=== PATIENT | male | born 1935 | race Caucasian/White ===

== ENCOUNTER 2020-05-17 07:36 | Outpatient (CLI) | payer MEDICARE, SELFPAY ==
--- NOTE | ~2020-05-17 | CT_ITS ---
EXAMINATION: CT brain wo/w con DATE: 05/17/2020 08:24 INDICATION: Headache TECHNIQUE: Computed tomography (CT) of the head was performed without intravenous contrast. The mA wa s adjusted according to patient size. Iterative reconstruction technique was employed. Exam dose: 12 10.67 mGy-cm total exam DLP. COMPARISON: 09/26/2018 CT head FINDINGS: Bilateral vertebral and carotid siphon and supraclinoid internal carotid artery calcificati ons. There is nonspecific diminished attenuation of the subcortical and periventricular cerebral white mat ter, likely due to chronic small vessel ischemic changes. There is a small chronic left frontal corti josh cerebrovascular infarct. There is moderate central and cortical cerebral and cerebellar atrophy. No intracranial mass lesion or hemorrhage or recent cerebrovascular accident is evident. There is no midline shift or mass effects. No orbital mass lesion. No fracture or bone destruction of the cranial vault. There is patchy opacification of the ethmoid air cells bilaterally. IMPRESSION: Cerebral atherosclerosis and chronic small vessel ischemic changes of the cerebral white matter Small chronic left frontal cerebrovascular accident Moderate central and cortical cerebral and cerebellar atrophy No acute intracranial finding Reviewed, dictated and finalized at [facility]. Reviewed, dictated and finalized at location [facility].
[2020-05-17 08:06] LABS: Estimated Glomerular Filt Rate > 60
== END 2020-05-17 07:37 | disposition home or self-care (01) ==
LOC: ANHIMG 07:43
PROVIDERS: PCP Internal Medicine; Visit Provider Internal Medicine
DX: R51 Headache (principal); I65.23 Occlusion and stenosis of bilateral carotid arteries; I67.2 Cerebral atherosclerosis; Z86.73 Personal history of transient ischemic attack (TIA), and cerebral infarction without residual deficits; G31.9 Degenerative disease of nervous system, unspecified
CPT/HCPCS: 36415; 70470; Q9967

== ENCOUNTER 2020-05-30 00:34 | Outpatient (CLI) | payer MEDICARE, SELFPAY ==
[2020-05-30 19:34] LABS: SARS-CoV-2 RNA PCR Negative
== END 2020-05-30 00:35 | disposition home or self-care (01) ==
LOC: ANHCOVIDDT 00:34
PROVIDERS: PCP Internal Medicine; Visit Provider Internal Medicine Gastroenterology
DX: Z01.812 Encounter for preprocedural laboratory examination (principal); Z11.59 Encounter for screening for other viral diseases
CPT/HCPCS: 87635; C9803; U0003

== ENCOUNTER 2020-06-01 02:18 | Day surgery (SDC) | payer MEDICARE, SELFPAY ==
[2020-05-20 14:35] VITALS: BMI 27.4
--- NOTE | 2020-05-30 14:37 | P.PNAN_ITS ---
Anes - Initial Pre Proc Eval Procedure: Operation Date: 06/01/20 09:30 Proposed Procedures p Screening Colonoscopy - Cayetano Milan MD Date/Time: 05/30/20 14:37 Surgeon: Cayetano Milan MD Pre Op Diagnosis: hx colon polyps Patient Data Age: 84 Gender: M Height: 1.73 m Weight: 82 kg Allergies Allergy/AdvReac Type Severity Reaction Status Date / Time No Known Allergies Allergy Verified 06/01/20 09:07 Home Medications Medication Instructions Recorded Confirmed Type amlodipine 5 mg DAILY 05/20/20 06/01/20 History aspirin 325 mg PO DAILY 05/20/20 06/01/20 History atorvastatin 80 mg DAILY 05/20/20 06/01/20 History atorvastatin 80 mg PO DAILY 05/20/20 06/01/20 History carvedilol 6.25 mg DAILY 05/20/20 06/01/20 History cholecalciferol (vitamin D3) 25 mcg PO DAILY 05/20/20 06/01/20 History [Vitamin D3] lisinopril 40 mg DAILY 05/20/20 06/01/20 History metformin 500 mg PO DAILY 05/20/20 06/01/20 History Patient hx anesthesia problems: none Family hx anesthesia problems: none [facility] Past Medical History Medical History (Updated 06/01/20 @ 09:31 by Marc Avtiia DO) CAD (coronary artery disease) patient told he has some blockage but not enough to have a stent or any other intervention Diabetes type 2, controlled GERD (gastroesophageal reflux disease) Hyperlipidemia Hypertension Anes - Eval Final PreProcedure Day of Procedure 05/30/20 14:37 Patient weight: overweight Heart: regular rate and rhythm Lungs: clear to auscultation and normal air movement Airway: Mallampati scale class II Neurological: alert and oriented Last oral intake: >/= 8 hours ASA classification: III Emergent: no Anesthetic plan: proceed Anesthesia type and monitoring: general GIVS and standard monitoring Informed Consent: The patient's anesthetic plan and its attendant risks and benefits were discussed with the patient/family/POA. Questions were solicited and answers provided to the satisfaction of the patient/family/POA.
[2020-06-01 09:10] VITALS: BP 113/56; PULSE 60; RESP 18; TEMP 36.6; O2SAT 96
[2020-06-01] MEDS: LACTATED RINGERS 1,000 ML 150 ML IV CONT (09:22)
[2020-06-01 09:27] LABS: Glucose Point of Care 126 (65-105)
--- NOTE | 2020-06-01 10:00 | P.CONGI_ITS ---
GI Consult Note Consult date/time: 06/01/20 10:00 HPI: Mark Patel is a 84 year old male Seen in evaluation at the request of Dr. Wilner braxton. Patient presents for follow-up colonoscopy. Patient had a colonoscopy 5 years ago that revealed a tubular adenomatous colon polyp. Saritha ent states that his current weight appetite bowel movements are normal. He denies abdominal pain. He has had no bleeding. Family history is noncontributory. he presents today for screening follow-up colonoscopy. Review of Systems Review of Systems: All systems reviewed & are unremarkable except as noted in HPI and below PMFSH Past Medical History Medical History CAD (coronary artery disease) patient told he has some blockage but not enough to have a stent or any other intervention Diabetes type 2, controlled GERD (gastroesophageal reflux disease) Hyperlipidemia Hypertension Meds Home Medications and Allergies Home Medications Medication Instructions Recorded Confirmed Type amlodipine 5 mg DAILY 05/20/20 06/01/20 History aspirin 325 mg PO DAILY 05/20/20 06/01/20 History atorvastatin 80 mg DAILY 05/20/20 06/01/20 History atorvastatin 80 mg PO DAILY 05/20/20 06/01/20 History carvedilol 6.25 mg DAILY 05/20/20 06/01/20 History cholecalciferol (vitamin D3) 25 mcg PO DAILY 05/20/20 06/01/20 History [Vitamin D3] lisinopril 40 mg DAILY 05/20/20 06/01/20 History metformin 500 mg PO DAILY 05/20/20 06/01/20 History Allergies Allergy/AdvReac Type Severity Reaction Status Date / Time No Known Allergies Allergy Verified 06/01/20 09:07 Vital Signs Vital Signs - 24 hr 06/01/20 09:10 Temperature 97.8 F Pulse Rate 60 Respiratory Rate 18 Blood Pressure 113/56 L Pulse Oximetry 96 Exam Narrative: Exam Narrative: Physical exam reveals patient to be alert. Vital signs stable. HEENT exam unremarkable. Lungs are clear to auscultation and percussion. Heart is without murmur or extra sounds. Abdominal exam bowel sounds are present soft nontender with no organomegaly. Digital external rectal exam normal.
[2020-06-01 10:36] VITALS: BP 81/45; PULSE 59; RESP 18; O2SAT 94
[2020-06-01 10:46] VITALS: BP 88/46; PULSE 59; RESP 19; O2SAT 95
[2020-06-01 10:47] LABS: Glucose Point of Care 114 (65-105)
[2020-06-01 10:56] VITALS: BP 115/59; PULSE 60; RESP 18; O2SAT 96
== END 2020-06-01 11:19 | disposition home or self-care (01) ==
PROVIDERS: PCP Internal Medicine; Visit Provider Internal Medicine Gastroenterology
PROC: 0DJD8ZZ Inspection of Lower Intestinal Tract, Via Natural or Artificial Opening Endoscopic (ICD-10-PCS; CPT 45378; principal; 2020-06-01 09:30)
DX: Z12.11 Encounter for screening for malignant neoplasm of colon (principal); D12.5 Benign neoplasm of sigmoid colon; K64.8 Other hemorrhoids; I25.10 Atherosclerotic heart disease of native coronary artery without angina pectoris; E11.9 Type 2 diabetes mellitus without complications; K21.9 Gastro-esophageal reflux disease without esophagitis; I10 Essential (primary) hypertension; E78.5 Hyperlipidemia, unspecified; Z79.84 Long term (current) use of oral hypoglycemic drugs; Z79.82 Long term (current) use of aspirin; Z79.899 Other long term (current) drug therapy
CPT/HCPCS: 45385; 88305; J2704; J7120

== ENCOUNTER 2020-06-03 10:56 | Outpatient (CLI) | payer MEDICARE, SELFPAY ==
--- NOTE | ~2020-06-03 | US_ITS ---
EXAMINATION: US carotid duplex BI DATE: 06/03/2020 11:51 INDICATION: Carotid stenosis TECHNIQUE: Grayscale, color Doppler, and pulsed Doppler images of the cervical carotid arteries were obtained. The degree of vessel stenosis is placed in one of the following categories: normal, <50%, 5 0-69%, >=70% but less than near-occlusion, near-occlusion, or total occlusion. Note that percent sten osis relative to normal distal artery lumen diameter is indirectly measured from velocity measurement s as described by Alex, et al. Radiology 2003; 229:340-346. COMPARISON: None. FINDINGS: RIGHT: The right common carotid artery (CCA) peak systolic velocity (PSV) is 68 cm/s. Postoperative change o f prior right carotid endarterectomy. The right internal carotid artery (ICA) PSV is 151 cm/s. The ri ght ICA end-diastolic velocity (EDV) is 23 cm/s. The right ICA/CCA PSV ratio is 2.2. Grayscale and co yulissa Doppler images including secondary color Doppler criteria demonstrate <50% diameter reduction fro m small amount of plaque in the ICA. The external carotid artery (ECA) PSV is 140 cm/s. There is ante grade flow in the right vertebral artery. LEFT: The left CCA PSV is 90 cm/s. Postoperative change of prior left carotid endarterectomy. The left ICA PSV is 111 cm/s. The left ICA EDV is 24 cm/s. The left ICA/CCA PSV ratio is 1.2. Grayscale and color Doppler images yield an estimate of <50% diameter reduction from plaque in the ICA. The ECA PSV is 16 0 cm/s. There is antegrade flow in the left vertebral artery. IMPRESSION: 1. Right carotid endarterectomy with <50% stenosis in the right internal carotid artery. 2. Left carotid endarterectomy with <50% stenosis in the left internal carotid artery. Reviewed, dictated and finalized at location [facility]. IMPRESSION: 1. Right carotid endarterectomy with <50% stenosis in the right internal caroti d artery. 2. Left carotid endarterectomy with <50% stenosis in the left internal carotid artery.
== END 2020-06-03 10:57 | disposition home or self-care (01) ==
PROVIDERS: PCP Internal Medicine; Visit Provider Nurse Practitioner
DX: I65.23 Occlusion and stenosis of bilateral carotid arteries (principal)
CPT/HCPCS: 93880

== ENCOUNTER 2020-09-13 00:26 | Outpatient (CLI) | payer MEDICARE, SELFPAY ==
[2020-09-13 18:51] LABS: SARS-CoV-2 RNA PCR Negative
== END 2020-09-13 00:27 | disposition home or self-care (01) ==
LOC: ANHCOVIDDT 00:29
PROVIDERS: PCP Internal Medicine; Visit Provider Otolaryngology
DX: Z01.812 Encounter for preprocedural laboratory examination (principal); Z20.828 Contact with and (suspected) exposure to other viral communicable diseases
CPT/HCPCS: 87635; C9803; U0003

== ENCOUNTER 2020-09-13 10:39 | Outpatient (CLI) | payer MEDICARE, SELFPAY ==
--- NOTE | 2020-09-13 10:41 | ECG_ITS ---
Measurements Intervals [place] Rate: 64 P: 16 MS: 155 QRS: -30 QRSD: 129 T: 0 QT: 405 QTc: 419 Interpretive Statements SINUS RHYTHM RIGHT BUNDLE BRANCH BLOCK BASELINE ARTIFACT- I, II, III, AVR, AVL, AVF, V3-V4 ABNORMAL ECG Electronically Signed On 09-13-2020 10:59:54 COMMERCIAL ANNOUNCER by Saleem Lund D.O.
[2020-09-13 12:01] LABS: Anion Gap 6 mmol/L (8-16); Blood Urea Nitrogen 16 mg/dL (9-20); Calcium 9.3 mg/dL (8.4-10.2); Carbon Dioxide 33 mmol/L (22-30); Chloride 98 mmol/L (98-107); Estimated Glomerular Filt Rate > 60; Glucose 197 mg/dL (75-110); Potassium 4.5 mmol/L (3.4-5.0); Sodium 137 mmol/L (137-145)
== END 2020-09-13 10:40 | disposition home or self-care (01) ==
PROVIDERS: Anesthesiology; PCP Internal Medicine; Visit Provider Otolaryngology
DX: Z01.818 Encounter for other preprocedural examination (principal); E11.9 Type 2 diabetes mellitus without complications; I10 Essential (primary) hypertension; I45.10 Unspecified right bundle-branch block
CPT/HCPCS: 36415; 80048; 93005

== ENCOUNTER 2020-09-16 09:09 | Inpatient (IN) | payer MEDICARE, SELFPAY ==
[2020-09-09 13:33] VITALS: BMI 28.1
--- NOTE | 2020-09-15 12:51 | PM.IMHP ---
H&P: HPI History of Present Illness Date/Time: 09/15/20 12:51 Chief complaint: Septal Ulcer Narrative: Mark Patel is a 84 year old male with a past medical history significant for a persistent nasal septal ulceration which has been present for several months and is nonhealing. The patient presents today for planned biopsy. He reports no new symptoms or changes in his medical history. Review of Systems Constitutional: Constitutional: Denies fatigue, Denies fever(s) and Denies lethargy Eyes: Eyes: Denies blurry vision and Denies change in vision ENT: Reports as per HPI Cardiovascular: Cardiovascular: Denies chest pain Respiratory: Respiratory: Denies cough Endocrine: Endocrine: Denies fatigue Hematologic/Lymphatic: Hematologic/Lymphatic: Denies easy bleeding, Denies easy bruising and Denies lymphadenopathy Allergic/Immunologic: Allergic/Immunologic: Denies seasonal rhinorrhea [facility] Past Medical History Medical History (Updated 06/06/20 @ 10:03 by Jamaal Vasquez MD) CAD (coronary artery disease) patient told he has some blockage but not enough to have a stent or any other intervention Diabetes type 2, controlled GERD (gastroesophageal reflux disease) Hyperlipidemia Hypertension Social History Social History (Updated 09/08/20 @ 08:51 by Dariela Melvin MA) Smoking packs per day: 1 Smoking cigarettes per day: 20.0 Years smoked: 17 Smoking pack-years: 17.00 Smoking status: Former smoker Tobacco type: cigarettes Smoking end date: 10/07/69 Alcohol intake: current Drinks per week: 7 Spiritual care concerns: No Meds Home Medications and Allergies Home Medications Medication Instructions Recorded Confirmed Type aspirin 325 mg PO DAILY 05/20/20 09/09/20 History atorvastatin 80 mg PO QPM 05/20/20 09/09/20 History carvedilol 6.25 mg DAILY 05/20/20 09/09/20 History lisinopril 40 mg PO DAILY 05/20/20 09/09/20 History metformin 500 mg PO DAILY 05/20/20 09/09/20 History mupirocin 2 % topical ointment 1 applic TOPICAL BID #15 g 09/08/20 09/09/20 Rx amlodipine 5 mg PO QAM 09/09/20 09/09/20 History cholecalciferol (vitamin D3) 25 mcg PO DAILY 09/09/20 09/09/20 History Allergies Allergy/AdvReac Type Severity Reaction Status Date / Time No Known Allergies Allergy Verified 09/09/20 13:11 Exam Const: General: cooperative, healthy appearing, comfortable, well developed and alert HENMT: Head: normal to inspection, normocephalic and atraumatic Ears: hearing grossly normal bilaterally, external ears normal, TM's normal bilaterally and EAC's normal General nose exam: Normal external nose present, Normal nares present and Other nasal findings present ( Bilateral septal ulcerations right worse than left) Face and sinus: normal facial exam Mouth: Yes Normal oral and palatal mucosa present, Yes lip normal, Yes tongue normal, Yes oropharynx normal and Yes moist mucous membranes Teeth and gingiva: dentition normal and gingiva normal Throat: posterior oropharynx normal, tonsils normal and uvula midline Eyes: General: appearance normal, both eyes and all related structures Periorbital: periorbital findings normal Eyelids: eyelids normal Conjunctivae: conjunctivae normal Sclera: sclerae normal Neck: Neck: normal visual inspection, full ROM and no lymphadenopathy Thyroid: thyroid normal Lymphatic: no lymphadenopathy noted Resp: Effort & Inspection: normal respiratory effort and able to speak in complete sentences Cardio: Jugular venous distension: no JVD Neuro: Cranial nerves: Yes CN's II-XII intact bilaterally Assessment and Plan Assessment and plan (1) Nasal septal ulcer: Code(s): J34.0 - Abscess, furuncle and carbuncle of nose Status: Acute Assessment and Plan: Plan is for the operating room for endoscopic biopsy of nasal septal ulcer. The risks and benefits were discussed in great detail including , bleeding, persistent septal perforation, and the need for fu
--- NOTE | 2020-09-15 13:03 | WPDANESEPPF ---
Anes - Initial Pre Proc Eval Procedure: Operation Date: 09/16/20 08:30 Proposed Procedures p Endoscopic Biopsy Of Septal Ulcer - Jamaal Vasquez MD Date/Time: 09/15/20 13:03 Surgeon: Jamaal Vasquez MD Pre Op Diagnosis: Septal Ulcer Patient Data Age: 84 Gender: M Height: 1.73 m Weight: 83.91 kg Allergies Allergy/AdvReac Type Severity Reaction Status Date / Time No Known Allergies Allergy Verified 09/16/20 06:58 Home Medications Medication Instructions Recorded Confirmed Type aspirin 325 mg PO DAILY 05/20/20 09/16/20 History atorvastatin 80 mg PO QPM 05/20/20 09/16/20 History carvedilol 6.25 mg DAILY 05/20/20 09/16/20 History lisinopril 40 mg PO DAILY 05/20/20 09/16/20 History metformin 500 mg PO DAILY 05/20/20 09/16/20 History mupirocin 2 % topical ointment 1 applic TOPICAL BID #15 g 09/08/20 09/16/20 Rx amlodipine 5 mg PO QAM 09/09/20 09/16/20 History cholecalciferol (vitamin D3) 25 mcg PO DAILY 09/09/20 09/16/20 History ECG: Date of Service: 09/13/20 Procedure(s): CA 12 lead EKG Accession Number(s): [id number] cc: ~ Measurements Intervals [place] Rate: 64 P: 16 VA: 155 QRS: -30 QRSD: 129 T: 0 QT: 405 QTc: 419 Interpretive Statements SINUS RHYTHM RIGHT BUNDLE BRANCH BLOCK BASELINE ARTIFACT- I, II, III, AVR, AVL, AVF, V3-V4 ABNORMAL ECG Electronically Signed On 09-13-2020 10:59:54 LEGAL DOCUMENT ASSISTANT by Saleem Lund D.O. Dictated By: Saleem Lund DO 09/13/20 1117 Other Studies: INDICATION: Carotid stenosis TECHNIQUE: Grayscale, color Doppler, and pulsed Doppler images of the cervical carotid arteries were obtained. The degree of vessel stenosis is placed in one of the following categories: normal, <50%, 50-69%, >=70% but less than near-occlusion, near-occlusion, or total occlusion. Note that percent stenosis relative to normal distal artery lumen diameter is indirectly measured from velocity measurements as described by Alex, et al. Radiology 2003; 229:340-346. COMPARISON: None. FINDINGS: RIGHT: The right common carotid artery (CCA) peak systolic velocity (PSV) is 68 cm/s. Postoperative change of prior right carotid endarterectomy. The right internal carotid artery (ICA) PSV is 151 cm/s. The right ICA end-diastolic velocity (EDV) is 23 cm/s. The right ICA/CCA PSV ratio is 2.2. Grayscale and color Doppler images including secondary color Doppler criteria demonstrate <50% diameter reduction from small amount of plaque in the ICA. The external carotid artery (ECA) PSV is 140 cm/s. There is antegrade flow in the right vertebral artery. LEFT: The left CCA PSV is 90 cm/s. Postoperative change of prior left carotid endarterectomy. The left ICA PSV is 111 cm/s. The left ICA EDV is 24 cm/s. The left ICA/CCA PSV ratio is 1.2. Grayscale and color Doppler images yield an estimate of <50% diameter reduction from plaque in the ICA. The ECA PSV is 160 cm/s. There is antegrade flow in the left vertebral artery. IMPRESSION: 1. Right carotid endarterectomy with <50% stenosis in the right internal carotid artery. 2. Left carotid endarterectomy with <50% stenosis in the left internal carotid artery. Patient hx anesthesia problems: none Family hx anesthesia problems: none [facility] Past Medical History Medical History (Updated 09/15/20 @ 13:04 by Wil Luna MD) CAD (coronary artery disease) patient told he has some blockage but not enough to have a stent or any other intervention Carotid stenosis Diabetes type 2, controlled GERD (gastroesophageal reflux disease) Hyperlipidemia Hypertension Overweight (BMI 25.0-29.9) Social History Social History (Updated 09/08/20 @ 08:51 by Dareila Melvin MA) Smoking packs per day: 1 Smok
[2020-09-16] VITALS (12 sets, daily range): BP systolic 100–140; BP diastolic 47–73; PULSE 57–98; RESP 14–24; TEMP 36.4–36.8; O2SAT 91–100
--- NOTE | 2020-09-16 | ECHO_ITS ---
Patient Info Name: Mark Patel Age: 84 years : 1935 Gender: Male Ht: 69 in Wt: 183 lbs BSA: 2.03 m2 HR: 76 bpm BP: 127 / 75 mmHg Heart Rhythm: Sinus Rhythm Technical Quality: Good Exam Date: 09/16/2020 3:07 PM Exam Location: [facility] Patient Status: Inpatient Admit Date: 09/16/2020 Staff Ordering Physician: Denny Whittington MD Yarding Supervisor: Bradly Davila GILLIAN Attending Provider: Jamaal Vasquez MD Exam Type: CA echo dop color flow w con Study Info Indications I46.9 - Cardiac arrest, cause unspecified Complete two-dimensional, color flow and Doppler transthoracic echocardiogram is performed with contrast to opacify the left ventricle and to improve the deliniation of the left ventricle endocardial borders. Contrast/Agitated Saline Contrast/Ag. Saline: Definity Amount: 3.00 ml Existing IV Access: Yes History/Risk Factors Cardiac arrest; DM2, HTN, elevated trops, CAD. Summary 1. Left ventricular systolic function is mildly reduced, estimated at 40-45%. 2. The left ventricular diastolic function is grade I diastolic dysfunction. 3. Otherwise largely unremarkable exam. Left Ventricle Left ventricular chamber dimension is normal. Left ventricular systolic function is mildly reduced, estimated at 40-45%. The left ventricular diastolic function is grade I diastolic dysfunction. Right Ventricle Right ventricular chamber dimension is normal. Left Atria Left atrial chamber dimension is normal. Right Atria Right atrial chamber dimension is normal. Aortic Valve The aortic valve is normal. Pulmonic Valve The pulmonic valve is not well visualized. Mitral Valve The mitral valve has normal leaflets. Tricuspid Valve The tricuspid valve leaflets are normal. Pericardium/Pleural The pericardium appears normal. Aorta The aortic root size at the sinus of Valsalva is normal. Left Ventricular Outflow Tract Name Value Normal LVOT 2D LVOT Diameter 2.01 cm LVOT Doppler LVOT Peak Gradient 6 mmHg LVOT Mean Gradient 3 mmHg LVOT VTI 26.23 cm LVOT VTI/AV VTI Ratio 0.79 LVOT Stroke Volume 83.26 ml LVOT CO 6.13 l/min LVOT CI 3.03 L/min/m2 Mitral Valve Name Value Normal MV Doppler MV Decel [place] 232.72 cm/s2 MV PHT 0 s MV Area (PHT) 3.00 cm2 4.00-5.00 MV Diastolic Function MV E Peak Velocity 58.88 cm/s MV A Peak Velocity 101.85 cm/s MV E/A
--- NOTE | ~2020-09-16 | XR_ITS ---
EXAMINATION: XR chest 1V portable DATE: 09/16/2020 08:50 INDICATION: Bradycardia during or procedure TECHNIQUE: frontal view of the chest was obtained. COMPARISON: None FINDINGS: Endotracheal tube tip 4.9 cm above the heather. Mild opacities at the bilateral lung bases and left pe rihilar region. No pleural effusion or pneumothorax. The cardiomediastinal silhouette is normal. Old healed posterior right eighth rib fracture. IMPRESSION: 1. Mild opacities in the left perihilar and bibasilar regions which could represent atelectasis, mild pulmonary edema or pneumonia. Reviewed, dictated and finalized at location A. ES DESPATCH HAND IMPRESSION: 1. Mild opacities in the left perihilar and bibasilar regions which could repre sent atelectasis, mild pulmonary edema or pneumonia.
[2020-09-16] MEDS: ACETAMINOPHEN 500 MG TABLET 1000 MG PO (06:57)
[2020-09-16] MEDS: LACTATED RINGERS 1,000 ML 30 ML IV CONT (07:12)
[2020-09-16 07:19] LABS: Glucose Point of Care 150 (65-105)
--- NOTE | 2020-09-16 07:41 | WPDHPUPDATE1 ---
History and Physical Update Update Date/Time: 09/16/20 07:41 History and Physical has been reviewed, including an updated exam of the patient. There are NO changes in the patient's condition. Risks, benefits, and alternatives have been discussed and questions answered. Patient agrees to proceed with procedure.
[2020-09-16] MEDS: ceFAZolin 2 GM/D5W 50 ML 2 GM/50 ML BAG IVPB (08:23)
[2020-09-16] MEDS: LIDO 1%/EPINEPHRINE 1:100,000 20 ML VIAL 5 ML INFILTRATE (08:30)
[2020-09-16] MEDS: OXYMETAZOLINE HCL 0.05% NAS 15 ML BTL (*BKC) 1 SPRAY NASAL (08:31)
--- NOTE | 2020-09-16 08:47 | SUR.OPER ---
See Anethesia notes for further patient documentation
--- NOTE | 2020-09-16 09:00 | ECG_ITS ---
Measurements Intervals [place] Rate: 88 P: 7 PA: 152 QRS: -9 QRSD: 134 T: -5 QT: 385 QTc: 466 Interpretive Statements SINUS RHYTHM WITH SINUS ARRHYTHMIA ATRIAL PREMATURE COMPLEXES RIGHT BUNDLE BRANCH BLOCK BORDERLINE ST-T WAVE ABNORMALITY- ANTEROLATERAL LEADS BASELINE ARTIFACT- I, AVR, AVL, V4 ABNORMAL ECG Electronically Signed On 09-16-2020 9:32:09 DUST PULLER by Saleem Lund D.O.
[2020-09-16 09:21] LABS: Hematocrit 40.4 % (42.0-52.0); Hemoglobin 13.6 g/dL (14.0-18.0); Mean Corpuscular HGB Conc 33.7 g/dl (32-36); Mean Corpuscular Hemoglobin 31.9 pg (26-34); Mean Corpuscular Volume 94.8 fl (80-100); Mean Platelet Volume 10.6 fl (7.4-10.4); Platelet Count Result 200 k/mm3 (150-375); Red Blood Count 4.26 M/mm3 (4.6-6.20); Red Cell Distribution Width 12.1 % (11.5-14.5); White Blood Count 5.4 K/mm3 (4.5-10.0)
[2020-09-16 09:33] LABS: Anion Gap 5 mmol/L (8-16); Blood Urea Nitrogen 14 mg/dL (9-20); Calcium 8.5 mg/dL (8.4-10.2); Carbon Dioxide 29 mmol/L (22-30); Chloride 101 mmol/L (98-107); Estimated CRCL calculation 68 ml/min; Estimated Glomerular Filt Rate > 60; Glucose 196 mg/dL (75-110); Potassium 4.5 mmol/L (3.4-5.0); Sodium 135 mmol/L (137-145)
[2020-09-16 09:45] LABS: Troponin I < 0.012 ng/mL (0.000-0.034)
--- NOTE | 2020-09-16 10:53 | ADMGEN ---
This patient, Mark Patel, was admitted to Intensive Care Unit-8. Patient/family oriented to hospital policies and general routines including ID bracelet, bed and alarms, visiting hours, pain management, procedures, bathroom and other care routines, personal items, smoking policy, room service/diet, and visiting hours. Information on how to activate the Rapid Response Team has been discussed. Patient/Family are encouraged to report perceived risks to care and to ask questions if they do not understand what they are told or what they should do.
--- NOTE | 2020-09-16 11:18 | WPDCNINT ---
Assessment and Plan Assessment and plan (1) Cardiac arrest: Code(s): I46.9 - Cardiac arrest, cause unspecified Status: Acute Assessment and Plan: As well mentioned the history is not very clear exactly what happened. Continued brief CPR although he is alert awake oriented now in a symptom Could be related to hypertension from anesthesia. EKG does show ST depression in lateral leads although troponin done postprocedure was negative CXR - Mild opacities in the left perihilar and bibasilar regions which could represent atelectasis, mild pulmonary edema or pneumonia. Continue serial troponins Check echocardiogram IV fluid bolus and maintenance IV fluids for next 24 hours Cardiology consult Aspirin (2) Carotid stenosis: Code(s): I65.29 - Occlusion and stenosis of unspecified carotid artery Status: Acute Assessment and Plan: IMPRESSION: 1. Right carotid endarterectomy with <50% stenosis in the right internal carotid artery. 2. Left carotid endarterectomy with <50% stenosis in the left internal carotid artery. Pt on Aspirin and statin (3) Nasal septal ulcer: Code(s): J34.0 - Abscess, furuncle and carbuncle of nose Status: Acute Assessment and Plan: Status post biopsy Management per ENT (4) Hypotension: Code(s): I95.9 - Hypotension, unspecified Status: Acute Assessment and Plan: Patient was hypotensive transiently in the surgery could be related to secondary to anesthesia but may have hypovolemia Will give 1 L bolus and maintenance IV fluids for next 24 hours Hold beta-jayleen (5) Diabetes type 2, controlled: Code(s): E11.9 - Type 2 diabetes mellitus without complications Status: Acute Assessment and Plan: Continue metformin And sliding scale insulin (6) CAD (coronary artery disease): Code(s): I25.10 - Atherosclerotic heart disease of [place] coronary artery without angina pectoris Status: Acute Assessment and Plan: Questionable history as patient denies having coronary disease although recorded in the chart. Cardiology consulted and they are seen patient now Check echocardiogram serial troponins Patient on aspirin Additional Plan DVT prophylaxis -Lovenox Nutrition -diabetic diet Code Status - Full Code Hand Bobbin Cleaner Consult Note Consult date: 09/16/20 Time Seen: 11:00 HPI: Mark Patel is a 84 year old male with past medical history of diabetes and carotid stenosis who was admitted today for an elective outpatient biopsy of nasal septal ulcer. Patient was undergoing general surgery under general anesthesia when he lost his pulse. He history is limited as most of the information was obtained from arms sign-out on the phone from ENT physician hence details are unknown at this time of exact nature. The limited information I have is that appears the patient was hypotensive and lost his pulse and acquired brief CPR. Surgery and anesthesia were discontinued and patient's hemodynamics improved and eventually he was extubated and he was alert oriented x3 He was admitted to ICU for further evaluation, monitoring and management. At this time and I saw the patient he does not remember anything and has no complaints. He is not sure why he is in the hospital. Regarding past medical history of coronary disease he told me that he had a stress test a long time ago and is unsure of the results or the exact date. 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 He does admit to having carotid stenosis and taking aspirin for it and diabetes. Patient denies fever, chest pain, shortness of breath, cough, nausea, vomiting, abdominal pain, diarrhea, headache or constipation. He told me that he was feeling fine before the procedure and has no new complaints now. All other systems reviewed and was negative Review of Systems Review of Systems: All systems reviewed & are unremarkable except as noted in HPI and below (HPI) [facility] Past Medical Hist
--- NOTE | 2020-09-16 11:42 | PM.CNCAR ---
Assessment and Plan Additional Plan 84-year-old man with: Episode of hypotension while he was under general anesthesia undergoing biopsy of his nasal septum. The patient is now clinically stable is asymptomatic and reports no apparent ischemic cardiac symptoms prior to this. Obviously with his history of hypertension dyslipidemia and known history of peripheral vascular disease he is at increased risk for coronary artery disease. Because of the event today troponin samples are being done and an echocardiogram is being done to his see if he has any ischemic wall motion abnormalities. I will review those findings in the further recommendations as needed. He should have an ischemia evaluation after this sort of an event and those decisions will be made after review of the above data. Gareth Valdovinos MD [facility] History of Present Illness History of Present Illness Consult date/time: 09/16/20 11:42 Consult reason: hypotension Reason For Visit: Post operative cardiac arrest Narrative: This is an 84-year-old man of seeing today at the request of the OR staff and the reducing machine operator because of hypotension that was of significant concern earlier this morning in the operating room. This gentleman came into the has an outpatient for a biopsy of his nasal septum to ensure that he did not have a a malignancy. He states that he has been followed by the reducing machine operator and has some sort of a lesion or ulcer in the septum that a biopsy was recommended. Apparently during anesthesia and surgery he became hypotensive to the point where the EXERCISE PLANNER could not feel a pulse. The operation was aborted or discontinued on not sure if the biopsy actually took place or not. He was taken to the anesthesia recovery unit where he was awakened and apparently he was clinically stable. There was no comment or hours not told of any cardiac arrhythmic event. He reports no previous history of significant heart disease he does report that his PCP told him that he had an short of circuit in his heart a number of years ago that was noticed on electrocardiogram. He has not ever had any other cardiac problems. He denies any history of exertional chest pain pressure or heaviness he denies any symptoms of PEDERSON orthopnea PND edema he has never had any palpitations or syncope. He does state that with physical exertion of walking a distance he notices some typical symptoms of intermittent claudication of the right calf that have been going on for last couple of years or so. This does occur tail his walking more than anything else. He has not had his peripheral vascular disease in the lower extremities specifically evaluated. He does have a history of carotid artery disease he states that his PCP several years ago heard carotid bruits bilaterally and referred him for evaluation downtown at [facility]. He underwent vascular surgery with carotid endarterectomy bilaterally during the same hospitalization several years ago. Has not unexpected he states there was some difficulty controlling his blood pressure after the operation but there were no other complications of surgery. States that his physicians have told him in follow-up but Dopplers that the results of his surgery are favorable. He remembers having a cardiac treadmill stress test a number of years ago but can't remember why that was done. He was told that it was unremarkable. His preop electrocardiogram shows a sinus mechanism with right bundle branch block. The electrocardiogram in the recovery room shows some mild lateral precordial ST segment depression. Troponin levels have been done and the results are as of yet pending an echocardiogram has been requested which is also pending. Review of Systems Constitutional: Constitutional: Reports no additional constitutional complaints Eyes: Eyes: Reports no additional eye complaints ENT: Reports as per HPI Cardiovascular: Cardiovascular: Reports no additional cardiovascular complaints Comm
[2020-09-16] MEDS: LACTATED RINGERS 1,000 ML 999 ML IV CONT (11:47)
[2020-09-16 12:09] LABS: Glucose Point of Care 136 (65-105)
[2020-09-16 12:38] LABS: Magnesium 1.9 mg/dL (1.6-2.3)
[2020-09-16 12:52] LABS: Troponin I 0.804 ng/mL (0.000-0.034)
[2020-09-16] MEDS: LACTATED RINGERS 500 ML 75 ML IV CONT (13:57)
[2020-09-16] MEDS: ASPIRIN 325 MG ENTERIC TABLET PO (13:57)
--- NOTE | 2020-09-16 14:00 | P.OP_ITS ---
Procedure Note - Detailed Date of procedure: 09/16/20 Pre-op diagnosis: Post operative cardiac arrest Nasal septal ulcer Post-op diagnosis: same Procedure performed: Endoscopic assisted biopsy of right nasal septal ulcer Description of procedure: The patient was correctly identified and consent was verified in the preoperative holding area. The patient was then brought to the operating room and a time-out was performed. General anesthesia was induced and an endotracheal tube was secured in the patient's airway and taped to the left lower lip. The patient was then prepped and draped for the aforementioned proc edure. Using a 0 degree endoscope the bilateral nasal passages were examined. There was a right septal deviation. On the right anterior septum there was an ulceration which although improved from previous examinations, was persistent. A biopsy was taken of the most ulcerated sinister. appearing portion. Minimal bleeding was noted and an Afrin-soaked pledget was placed for hemostasis. At that time I was informed by anesthesia that the patient was in cardiac arrest and had no pulse and that CPR needed to be initiated. I performed 2 rounds of chest compressions with return of a pulse being noted. Care of the patient was then turned over to Anesthesiology and Afrin-soaked pledget was removed with no bleeding noted. I performed all dictated portions of this procedure. Anesthesia: GLMA Surgeon: Jamaal Vasquez MD Estimated blood loss (mL): 1 Pathology: yes Complications: Other complications Condition: stable Disposition: ICU Findings: Right septal ulceration
--- NOTE | 2020-09-16 15:15 | PM.IMHP ---
H&P: HPI History of Present Illness Date/Time: 09/16/20 15:15 Chief complaint: Post operative cardiac arrest Narrative: Mark Patel is an 84-year-old male with carotid artery stenosis status post bilateral carotid endarterectomy, [id number] type 2 diabetes mellitus, hypertension, and hyperlipidemia who is being directly admitted to the hospital from outpatient surgery after he suffered a perioperative cardiac arrest. He has a nonhealing nasal septal ulcer which was biopsied today and near the end of surgery he became bradycardic and a pulse apparently was lost. CPR was initiated and he had return of spontaneous circulation within a short period of time. His only complaint at the time my evaluation is of some mild precordial discomfort, presumably from the CPR. He frequently walks and has not had any instances of exertional chest pain. He also denies exertional shortness of breath and has not had nausea, vomiting, sweats, dizziness, syncope, or near syncope. Of note he was not able to urinate postoperatively and a Vargas catheter has since been inserted. He had a similar problem after his carotid endarterectomy, and was able to urinate the next day on a voiding trial. Review of Systems Review of Systems: Narrative: Twelve systems were reviewed with pertinent positives and negatives as per HPI. No fever, chills, or sweats. No recent cold or flu symptoms. No known exposure to those positive for COVID-19. He had a nasal septal ulcer biopsy today, which has been there for quite some time and did not heal with what sounds like mupirocin ointment. He has no known history of malignancy. He denies rhinorrhea and epistaxis. Mild, chronic sinus congestion. No dysuria hematuria. Except as documented, all other systems were reviewed and are negative. [facility] Past Medical History Medical History (Updated 09/16/20 @ 23:55 by Yoselyn Woodruff PA-C) Adenomatous colon polyp (~05/2015) Carotid stenosis Status post bilateral carotid endarterectomy. Coronary artery disease Poorly documented in the EMR, patient apparently has nonocclusive coronary disease however he cannot provide me with any details regarding this. Gastroesophageal reflux disease Hyperlipidemia Hypertension Osteoarthritis Type 2 diabetes mellitus Patient believes he probably has pre diabetes, with a reported recent hemoglobin A1c of around 6%. Surgical History Surgical History (Updated 09/16/20 @ 14:28 by Yoselyn Woodruff PA-C) History of bilateral carotid endarterectomy (~2017) History of bilateral cataract extraction Social History Social History (Updated 09/16/20 @ 23:56 by Yoselyn Woodruff PA-C) Social History: Lives in [place] with his . 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 Former smoker, quit around 1969. Consumes perhaps 1 alcoholic beverage a day. No illicit substance use. Deb is his surrogate decision maker. He wishes to be a full code. Smoking packs per day: 1 Smoking cigarettes per day: 20.0 Years smoked: 17 Smoking pack-years: 17.00 Smoking status: Former smoker Tobacco type: cigarettes Smoking end date: 10/07/69 Alcohol intake: never Drinks per week: 7 Substance use: never Living arrangements: with family Spiritual care concerns: No Meds Home Medications and Allergies Home Medications Medication Instructions Recorded Confirmed Type aspirin 325 mg PO DAILY 05/20/20 09/16/20 History atorvastatin 80 mg PO QPM 05/20/20 09/16/20 History carvedilol 6.25 mg DAILY 05/20/20 09/16/20 History lisinopril 40 mg PO DAILY 05/20/20 09/16/20 History metformin 500 mg PO DAILY 05/20/20 09/16/20 History mupirocin 2 % topical ointment 1 applic TOPICAL BID #15 g 09/08/20 09/16/20 Rx amlodipine 5 mg PO QAM 09/09/20 09/16/20 History cholecalciferol (vitamin D3) 25 mcg PO DAILY 09/09/20 09/16/20 History Allergies Allergy/AdvReac Type Severity Reaction Status Date / Time No Known Allergies Allergy Verified 09/16/20 06:5
[2020-09-16] MEDS: PERFLUTREN LIPID MICROSPHERES 1.5 ML VIAL DILUTED TO 10 ML TOTAL VOLUME (15:18)
[2020-09-16] MEDS: metFORMIN HCL 500 MG TABLET PO (17:16)
[2020-09-16 17:22] LABS: Glucose Point of Care 132 (65-105)
[2020-09-16 18:36] LABS: Troponin I 0.685 ng/mL (0.000-0.034)
--- NOTE | 2020-09-16 19:21 | NBADM ---
Patient transfered to [facility] 4. Report given to ALENA Kern. All questions answered. Belongings brought with patient.
[2020-09-16] MEDS: LACTATED RINGERS 1,000 ML 75 ML IV CONT (21:20)
[2020-09-16 21:24] LABS: Glucose Point of Care 154 (65-105)
[2020-09-17] VITALS (11 sets, daily range): BP systolic 119–139; BP diastolic 49–72; PULSE 68–81; RESP 12–20; TEMP 36.6–36.8; O2SAT 92–98
[2020-09-17 00:49] LABS: Troponin I 0.304 ng/mL (0.000-0.034)
[2020-09-17 04:08] LABS: Hematocrit 37.6 % (42.0-52.0); Hemoglobin 12.9 g/dL (14.0-18.0); Mean Corpuscular HGB Conc 34.3 g/dl (32-36); Mean Corpuscular Hemoglobin 31.4 pg (26-34); Mean Corpuscular Volume 91.5 fl (80-100); Mean Platelet Volume 10.7 fl (7.4-10.4); Platelet Count Result 199 k/mm3 (150-375); Red Blood Count 4.11 M/mm3 (4.6-6.20); Red Cell Distribution Width 11.9 % (11.5-14.5); White Blood Count 9.1 K/mm3 (4.5-10.0)
[2020-09-17 04:34] LABS: Alanine Aminotransferase 19 U/L (4-50); Albumin Level 3.4 g/dL (3.5-5.1); Alkaline Phosphatase 49 U/L (38-126); Anion Gap 6 mmol/L (8-16); Aspartate Amino Transferase 28 U/L (17-59); Bilirubin,Total 0.8 mg/dL (0.2-1.3); Blood Urea Nitrogen 8 mg/dL (9-20); Calcium 8.3 mg/dL (8.4-10.2); Carbon Dioxide 29 mmol/L (22-30); Chloride 97 mmol/L (98-107); Estimated CRCL calculation 92 ml/min; Estimated Glomerular Filt Rate > 60; Glucose 124 mg/dL (75-110); Magnesium 1.8 mg/dL (1.6-2.3); Sodium 132 mmol/L (137-145)
[2020-09-17 07:33] LABS: Glucose Point of Care 156 (65-105)
[2020-09-17] MEDS: ASPIRIN 325 MG ENTERIC TABLET PO (08:30)
[2020-09-17] MEDS: metFORMIN HCL 500 MG TABLET PO (08:31)
--- NOTE | 2020-09-17 08:59 | WPDPN ---
Progress Note: A&P Assessment and Plan (1) Nasal septal ulcer: Code(s): J34.0 - Abscess, furuncle and carbuncle of nose Status: Acute Assessment and Plan: Overall the patient looks well this morning. I will call him with the results of the nasal septal biopsy. I've asked him to continue bid mupirocin and prn nasal saline sprays when home. Please call with any questions and/or concerns. [phone]. (2) Cardiac arrest: Code(s): I46.9 - Cardiac arrest, cause unspecified Status: Acute Review of Systems Constitutional: Constitutional: Denies fatigue, Denies fever(s) and Denies lethargy Eyes: Eyes: Denies blurry vision and Denies change in vision ENT: Reports as per HPI Cardiovascular: Cardiovascular: Denies chest pain Respiratory: Respiratory: Denies cough Endocrine: Endocrine: Denies fatigue Hematologic/Lymphatic: Hematologic/Lymphatic: Denies lymphadenopathy Allergic/Immunologic: Allergic/Immunologic: Denies seasonal rhinorrhea Exam Const: General: cooperative, healthy appearing, comfortable, well developed and alert HENMT: Head: normal to inspection, normocephalic and atraumatic Ears: hearing grossly normal bilaterally, external ears normal, TM's normal bilaterally and EAC's normal General nose exam: Normal external nose present and Normal nares present Face and sinus: normal facial exam Mouth: Yes Normal oral and palatal mucosa present, Yes lip normal, Yes tongue normal, Yes oropharynx normal and Yes moist mucous membranes Teeth and gingiva: dentition normal and gingiva normal Throat: posterior oropharynx normal, tonsils normal and uvula midline Eyes: General: appearance normal, both eyes and all related structures Periorbital: periorbital findings normal Eyelids: eyelids normal Conjunctivae: conjunctivae normal Sclera: sclerae normal Neck: Neck: not normal to visual inspection (bilateral scars), full ROM and no lymphadenopathy Thyroid: thyroid normal Lymphatic: no lymphadenopathy noted Resp: Effort & Inspection: normal respiratory effort and able to speak in complete sentences Cardio: Jugular venous distension: no JVD Neuro: Cranial nerves: Yes CN's II-XII intact bilaterally Objective Data Vital Signs Vital Signs: Vital Signs - 24 hr 09/16/20 09:12 09/16/20 09:15 09/16/20 09:30 Temperature Pulse Rate 85 85 76 Respiratory Rate 16 20 18 Blood Pressure 106/64 105/59 L 100/57 L Pulse Oximetry 97 97 100 09/16/20 09:45 09/16/20 12:00 09/16/20 14:00 Temperature 36.6 C 36.6 C Pulse Rate 76 68 84 Respiratory Rate 18 16 18 Blood Pressure 104/59 L 100/60 126/70 Pulse Oximetry 97 91 94 09/16/20 16:00 09/16/20 18:00 09/16/20 20:00 Temperature 36.6 C 36.7 C Pulse Rate 85 89 73 Respiratory Rate 19 24 H 20 Blood Pressure 140/73 139/62 Pulse Oximetry 94 92 93 09/16/20 22:00 09/17/20 00:00 09/17/20 01:53 Temperature 36.6 C Pulse Rate 71 72 73 Respiratory Rate 16 Blood Pressure 119/49 L Pulse Oximetry 96 09/17/20 03:59 09/17/20 04:00 09/17/20 05:35 Temperature 36.8 C Pulse Rate 72 68 81 Respiratory Rate 12 Blood Pressure 130/52 L Pulse Oximetry 92 09/17/20 07:35 Temperature Pulse Rate 72 Respiratory Rate 20 Blood Pressure 139/56 L Pulse Oximetry 95 Intake/Output Intake/Output: Intake & Output 09/14/20 09/15/20 09/16/20 09/17/20 23:59 23:59 23:59 23:59 Intake Total 1530 1413 Output Total 1625 1500 Balance -95 -87 Meds/Results Medications: Active Medications Generic Name Dose Route Start Last Admin Trade Name Freq PRN Reason Stop Dose Admin Aspirin 325 mg 09/16/20 11:20 09/17/20 08:30 Aspirin 325 Mg Enteric Tablet PO 325 mg QAM [facility] Administration Dextrose 12.5 gm 09/16/20 11:16 Dextrose 50% 25 Gm/50 Ml Syringe IV PUSH PRN PRN Hypoglycemia Protocol Glucagon 1 mg 09/16/20 11:16 Glucagon For Inj 1 Mg Vial IM PRN PRN Hypoglycemia Protocol Glu
--- NOTE | 2020-09-17 10:08 | PM.PNCARD ---
Progress Note: A&P Time Spent With Patient Time: 84-year-old man with: Episode of clinically significant hypotension during surgery for nasal septal biopsy. Modest troponin elevation following this event. Echocardiographic evidence of low normal or mildly depressed left ventricular systolic function and known history of peripheral vascular disease. He is clinically stable this morning I believe he can be safely discharged and I will arrange for Lexiscan nuclear stress testing to be done as an outpatient in the office as he is at risk obviously for ischemic heart disease. Gareth Valdovinos MD [facility] Subjective Date/time seen: Date of service: 09/17/20 10:08 Interval history: Follow-up visit in this 84-year-old man with: Episode of significant hypotension in the operating room during surgery for biopsy of his nasal septum. Statements in the chart indicate that he had a cardiac arrest which as far as I can tell is not documented. What is documented is concerning hypotension. Hypertension Known peripheral vascular disease with bilateral carotid endarterectomy and intermittent claudication Exam Const: General: comfortable and no acute distress HENMT: Mouth: Yes moist mucous membranes Eyes: Sclera: sclerae normal Pupils: Equal, round and reactive pupils present Neck: Neck: supple and no JVD Thyroid: thyroid normal Other: Bilateral carotid endarterectomy scars noted Resp: Effort & Inspection: normal respiratory effort Auscultation: clear to auscultation bilaterally Cardio: Rate: regular rate Rhythm: regular rhythm GI: GI Palp: Yes Soft to palpation Auscultation: normal bowel sounds Skin: General skin exam: normal color Neuro: Cognition (Neuro): normal cognition Extrem: General: normal to inspection Objective Data Vital Signs Vital Signs: Vital Signs - 24 hr 09/16/20 12:00 09/16/20 14:00 09/16/20 16:00 Temperature 36.6 C 36.6 C 36.6 C Pulse Rate 68 84 85 Respiratory Rate 16 18 19 Blood Pressure 100/60 126/70 140/73 Pulse Oximetry 91 94 94 09/16/20 18:00 09/16/20 20:00 09/16/20 22:00 Temperature 36.7 C Pulse Rate 89 73 71 Respiratory Rate 24 H 20 Blood Pressure 139/62 Pulse Oximetry 92 93 09/17/20 00:00 09/17/20 01:53 09/17/20 03:59 Temperature 36.6 C 36.8 C Pulse Rate 72 73 72 Respiratory Rate 16 12 Blood Pressure 119/49 L 130/52 L Pulse Oximetry 96 92 09/17/20 04:00 09/17/20 05:35 09/17/20 07:35 Temperature Pulse Rate 68 81 72 Respiratory Rate 20 Blood Pressure 139/56 L Pulse Oximetry 95 Intake/Output Intake/Output: Intake & Output 09/14/20 09/15/20 09/16/20 09/17/20 23:59 23:59 23:59 23:59 Intake Total 1530 1413 Output Total 1625 1500 Balance -95 -87 Meds/Results Medications: Active Medications Generic Name Dose Route Start Last Admin Trade Name Freq PRN Reason Stop Dose Admin Aspirin 325 mg 09/16/20 11:20 09/17/20 08:30 Aspirin 325 Mg Enteric Tablet PO 325 mg QAM [facility] Administration Dextrose 12.5 gm 09/16/20 11:16 Dextrose 50% 25 Gm/50 Ml Syringe IV PUSH PRN PRN Hypoglycemia Protocol Glucagon 1 mg 09/16/20 11:16 Glucagon For Inj 1 Mg Vial IM PRN PRN Hypoglycemia Protocol Glucose 15 gm 09/16/20 11:16 Glucose Oral Gel 15 Gm Of Glucse In 37.5 Gm Tube PO PRN PRN Hypoglycemia Protocol Dextrose 1,000 mls @ 100 mls/hr 09/16/20 11:16 Dextrose 5% 1,000 Ml IVPB PRN PRN Hypoglycemia Protocol Insulin Aspart 3 - 6 units 09/16/20 12:00 09/17/20 07:33 Insulin Aspart (*Bkc) 100 Units/Ml SUB-Q Not Given TIDWM [facility] Protocol Metformin HCl 500 mg 09/16/20 17:00 09/17/20 08:31 Metformin Hcl 500 Mg Tablet PO 500 mg BIDWM [facility] Administration Radiology Results: ITS Impressions Chest X-Ray 09/16/20 08:55 IMPRESSION: 1. Mild opacities in the left perihilar and bibasilar regions which could represent atelectasis, mild p
[2020-09-17 11:31] LABS: Glucose Point of Care 151 (65-105)
--- NOTE | 2020-09-17 16:01 | PC.NURSE ---
1530-instructed by SAND PLANT ATTENDANT to remove catheter and make sure pt can void before d/c.
--- NOTE | 2020-09-17 17:35 | PM.DS ---
DS: Admitting Diagnosis Admitting Diagnosis Admitting Diagnosis: 1. Post operative cardiac arrest 2. Elevated troponin 3. Type 2 diabetes mellitus 4. Hypertension 5. Hyperlipidemia 6. Nasal septal ulcer DS: Discharge Diagnosis Discharge Diagnosis (1) Urinary retention: Code(s): R33.9 - Retention of urine, unspecified Status: Acute Assessment and Plan: The patient had difficulties urinating postoperatively and a Vargas catheter was inserted. Unfortunately he failed a voiding trial and is being discharged home with a Vargas catheter . Instructions given to call urology on Saturday morning for follow-up. (2) Cardiac arrest: Code(s): I46.9 - Cardiac arrest, cause unspecified Status: Acute Assessment and Plan: Perioperative clinically significant hypotension and bradycardia with inability to palpate a pulse. ROSC achieved shortly after giving push dose pressors and starting compressions. Dr. Gareth Valdovinos, cardiology, feels he can be safely discharged today and he will arrange for an outpatient Lexiscan nuclear stress in office given his risk for ischemic heart disease. (3) Elevated troponin: Code(s): R77.8 - Other specified abnormalities of plasma proteins Status: Acute Assessment and Plan: He had a modest increase in troponins following the above event (0.804 --> 0.685 --> 0.304). Post-operative EKG per Dr. Valdovinos with right bundle branch block and mild lateral precordial ST segment depressions. Echocardiogram demonstrated mildly reduced left ventricular systolic function with an EF of 40-45% and grade 1 diastolic dysfunction. Euvolemic on discharge. (4) Type 2 diabetes mellitus: Code(s): E11.9 - Type 2 diabetes mellitus without complications Status: Acute Assessment and Plan: Metformin was held during hospitalization, and glucose was never over 200. (5) Hypertension: Code(s): I10 - Essential (primary) hypertension Status: Acute Assessment and Plan: Aside from the clinically significant episode of hypotension in the perioperative phase, his blood pressures remained stable. (6) Hyperlipidemia: Code(s): E78.5 - Hyperlipidemia, unspecified Status: Acute Assessment and Plan: Patient on high-intensity statin, atorvastatin 80 mg daily. LFTs monitored and were within normal limits. (7) Nasal septal ulcer: Code(s): J34.0 - Abscess, furuncle and carbuncle of nose Status: Acute Assessment and Plan: Pathology pending at the time of discharge; patient to follow-up with Dr. Vasquez. DS: Summary Time Spent with Patient Time attestation: Total time spent providing and/or coordinating discharge services: 40 minutes. Exam Narrative: Exam Narrative: Exam on discharge: General: Well-developed male sitting up in a chair at the side of the bed in no distress. HEENT: Wearing glasses. Pupils reactive. Extraocular motions intact. Oral mucosa moist. Neck: Supple. No JVD. Respiratory: Lungs are clear to auscultation bilaterally. Speaking in full sentences. Cardiovascular: Regular rate and rhythm with S1-S2. Chest: Somewhat tender to palpation about the anterior chest from CPR. Gastrointestinal: Abdomen is soft, nontender, and nondistended with positive bowel sounds. Skin: Warm and dry. No rash or lesions on limited exam. Extremities: No cyanosis, clubbing, or edema. Radial and pedal pulses intact. Neurological: Alert. Cranial nerves 2-12 are grossly intact. No gross focal deficits to casual conversation. Psychiatric: Pleasant and cooperative with normal mood and affect. DS: Data Data Completed and Pending Pending studies at discharge: Pending at discharge 09/16/20 08:41 Surgical [PTH] Routine Labs on day of discharge: Labs from last 24 hours 09/17/20 09/17/20 09/17/20 11:27 07:31 03:52 WBC RBC Hgb Hct MCV
--- NOTE | 2020-09-17 19:15 | PC.NURSE ---
1730-pt unable to void per request. Bladder scan performed and found to have over 350ml. Ordered to insert another Vargas catheter and d/c pt home with Vargas in place. About 400 ml into bag.
--- NOTE | 2020-09-17 19:16 | PC.NURSE ---
1800-pt given D/C orders and instruictions. Questions answered and verbalized understanding. Vargas catheter in place and draining well. Pt given detailed instructions on Vargas care. PIV removed intact. Taken via wheelchair to waiting vehicle. No distress noted or verbalized at time of departure.
== END 2020-09-17 18:00 | disposition home or self-care (01) | DRG 316 ==
LOC: ANHICU 09:26 → ANHCPC 09-17 13:09 → ANHICU 09-21 14:00
PROVIDERS: Anesthesiology; Internal Medicine; Admitting Provider Otolaryngology; PCP Internal Medicine; Visit Provider Family Medicine
PROC: 5A12012 Performance of Cardiac Output, Single, Manual (ICD-10-PCS; principal; 2020-09-16 08:30)
DX: I97.121 Postprocedural cardiac arrest following other surgery (principal); I97.191 Other postprocedural cardiac functional disturbances following other surgery; I95.81 Postprocedural hypotension; R33.8 Other retention of urine; J34.0 Abscess, furuncle and carbuncle of nose; I25.10 Atherosclerotic heart disease of native coronary artery without angina pectoris; I65.23 Occlusion and stenosis of bilateral carotid arteries; E11.51 Type 2 diabetes mellitus with diabetic peripheral angiopathy without gangrene; K21.9 Gastro-esophageal reflux disease without esophagitis; E78.5 Hyperlipidemia, unspecified; I10 Essential (primary) hypertension; M19.90 Unspecified osteoarthritis, unspecified site; Z87.891 Personal history of nicotine dependence; Z98.42 Cataract extraction status, left eye; Z98.41 Cataract extraction status, right eye
CPT/HCPCS: 36415; 71045; 80048; 80053; 83735; 84484; 85027; 87635; 88305; 93005; A9270; C8929; C9803; J0171; J0330; J0690; J2704; J3010; J7120; Q9957; U0003

== ENCOUNTER 2022-05-02 16:10 | Outpatient (CLI) | payer MEDICARE, SELFPAY ==
--- NOTE | ~2022-05-02 | MR_ITS ---
EXAMINATION: MR brain/brain stem wo/w con DATE: 05/02/2022 17:52 INDICATION: HEADACHE UNSPECIFIED TECHNIQUE: Magnetic resonance imaging (MRI) of the brain and brainstem was performed with 15 mL Multi Sandie intravenous contrast. Sequences included sagittal and axial T1-weighted SE, axial diffusion-tuan ghted FS EPI ASSET, axial T2*-weighted GRE, axial T2-weighted FLAIR Propeller, and axial T2-weighted Propeller. Postcontrast axial and coronal T1-weighted SE was obtained. Apparent diffusion coefficient (ADC) maps were created. COMPARISON: CT brain 05/17/2020. FINDINGS: No abnormal restricted diffusion to suggest acute ischemic infarct. No MRI evidence of hemorrhage or extra-axial collection. No suspicious foci of susceptibility to suggest prior intraparenchymal hemorr stanley. Moderate patchy T2 hyperintensity in the periventricular white matter. Focal encephalomalacia i n the left frontal lobe. Mild generalized parenchymal volume loss. Ventricles are proportional to bra in volume. Basilar cisterns are patent. Flow voids are preserved. Aerated spaces are clear. Bilateral lens replacements. IMPRESSION: 1. No acute intracranial process. 2. Moderate atrophy and chronic white matter change. Reviewed, dictated and finalized at location K.
[2022-05-02 17:22] LABS: Estimated Glomerular Filt Rate > 60
== END 2022-05-02 16:11 | disposition home or self-care (01) ==
PROVIDERS: PCP Internal Medicine; Visit Provider Internal Medicine
DX: R51.9 Headache, unspecified (principal)
CPT/HCPCS: 70553; A9577

== ENCOUNTER 2023-03-21 14:54 | Outpatient (CLI) | payer MEDICARE, SELFPAY ==
--- NOTE | ~2023-03-21 | XR_ITS ---
XR shoulder LT min 2V 03/21/2023 15:17 Indication: Left shoulder pain Procedure: 4 views left shoulder Comparison: No prior studies for comparison. Findings: There is moderate polyarticular osteoarthritis of the left shoulder. No fracture or traumat ic malalignment. There is anatomic alignment. No soft tissue abnormality. No foreign bodies. 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 Reviewed, dictated and finalized at location L. 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
== END 2023-03-21 14:55 | disposition home or self-care (01) ==
LOC: CHSIMG 14:56
PROVIDERS: PCP Internal Medicine; Visit Provider Internal Medicine
DX: M25.512 Pain in left shoulder (principal); M19.012 Primary osteoarthritis, left shoulder
CPT/HCPCS: 73030

== ENCOUNTER 2023-03-25 14:13 | Outpatient (CLI) | payer MEDICARE, SELFPAY ==
--- NOTE | ~2023-03-25 | DEXA_ITS ---
Bone Density Report Name: KAVYA BOWIE Age: 87 Sex: Male Ethnicity: White Date of : 1935 Indication: screening for osteoporosis; Referring Provider: ANSELMOSHAILA Study: Bone densitometry was performed. Exam Date: March 25, 2023 Accession number: [id number] Bone Density: Region BMD T-score Z-score Classification AP Spine(L1-L4) 1.197 1.0 2.3 Normal Femoral Neck (Left) 0.848 -0.6 1.1 Normal Total Hip (Left) 1.004 -0.2 1.1 Normal Femoral Neck (Right) 0.882 -0.4 1.3 Normal Total Hip (Right) 1.056 0.2 1.4 Normal Femoral Neck Mean 0.865 -0.5 1.2 Normal Total Hip Mean 1.030 0.0 1.2 Normal World Health Organization criteria for BMD impression classify patients as: Normal (T-score at or above -1.0), Osteopenia (T-score between -1.0 and -2.5), or Osteoporosis (T-score at or below -2.5). 10-year Fracture Risk: FRAX not reported because: All T-scores for Spine Total, Hip Total, Femoral Neck at or above -1.0 Clinical Information Provided by Patient: Has used the following medications: Vitamin D Patient maximum height was 69 No regular weight bearing exercise Drinks caffeinated beverages Impression: The patient has normal bone mass. Discussion: BONE DENSITY IS ABOVE THE MINIMUM DESIRABLE LEVEL AT ALL SKELETAL SITES TESTED. This patient?s bone mineral density is above the minimum desirable level (T-score -1.0 or better) at all sites measured. The patient should follow a healthful lifestyle (good nutrition with adequate calcium and vitamin D, and appropriate weight-bearing exercise). Follow-Up: Consider repeating this study in 5 years or sooner if there is some new clinical indication. Reported by: Dr. Sterling Zaman on 03/25/2023 2:41:00 PM. Reviewed, dictated and finalized at location A.
== END 2023-03-25 14:14 | disposition home or self-care (01) ==
LOC: CHSIMG 14:14
PROVIDERS: PCP Internal Medicine; Visit Provider Internal Medicine
DX: M81.0 Age-related osteoporosis without current pathological fracture (principal)
CPT/HCPCS: 77080

== ENCOUNTER 2023-09-27 08:13 | Outpatient (CLI) | payer MEDICARE, SELFPAY ==
--- NOTE | ~2023-09-27 | US_ITS ---
EXAMINATION: US art doppler w press LE BI DATE: 09/27/2023 08:54 INDICATION: Atherosclerosis with claudication TECHNIQUE: Segmental pressures and plethysmographic and Doppler waveforms of the brachial and lower e xtremity arteries were obtained. COMPARISON: None. FINDINGS: Right and left brachial artery pressures of 140 mm Hg and 150 mm Hg, respectively, are concordant (no rmal difference <= 30 mmHg). The right ankle-brachial index (YESSICA) is 0.80 (normal >= 0.9-1). The right great toe-brachial index (T BI) is 0.35 (normal >= 0.6-0.8). Arterial waveforms demonstrate biphasic waveform with brisk systolic upstrokes at the right common femoral artery and monophasic waveforms with progressive delayed upstr okes in the more distal arteries. The left YESSICA is 0.55. The left TBI is 0.37. Arterial waveforms demonstrate biphasic waveforms with br isk systolic upstrokes in the left common femoral artery, monophasic waveform with still brisk upstro ke at the left popliteal artery and monophasic waveforms with progressive delayed upstrokes in the mo re distal arteries. IMPRESSION: 1. Arterial occlusive disease to bilateral lower limbs with mildly decreased right YESSICA and moderately decreased left YESSICA and bilateral TBIs. Reviewed, dictated and finalized at location A. RTING CONSULTANT IMPRESSION: 1. Arterial occlusive disease to bilateral lower limbs with mildly decreased ri ght YESSICA and moderately decreased left YESSICA and bilateral TBIs.
== END 2023-09-27 08:14 | disposition home or self-care (01) ==
LOC: CHSIMG 08:16
PROVIDERS: PCP Internal Medicine; Visit Provider Internal Medicine
DX: I73.9 Peripheral vascular disease, unspecified (principal)
CPT/HCPCS: 93923

== ENCOUNTER 2023-10-04 08:14 | Outpatient (RCR) | payer MEDICARE, SELFPAY ==
--- NOTE | 2023-10-04 09:33 | OPREHPOC ---
Outpatient Therapy Plan of Care This is a Multidisciplinary Plan of Care that may contain components documented by all disciplines (PT, OT, and ST.) PT Problem 1 PT Problem #1 Knowledge Deficit PT Goal 1 Goal Patient to demonstrate independence with HEP Target Visit 4 PT Problem 2 PT Problem #2 Impaired Flexibility PT Goal 1 Goal 1. Patient to demonstrate 20 deg of B HS flexibility to improve ability to stand to complete house hold tasks 2. Patient to demonstrate 10 deg of B ankle DF with knee extended to improve ability to ambulate at PLOF Target Visit 8 PT Problem 3 PT Problem #3 Impaired Functional Mobil PT Goal 1 Goal 1. Patient to demonstrate ability to complete 10 unilateral heel raises B to improve ambulation distance without fatigue to return to shopping 2. Patient to report ability to ambulate 2 miles to return to prior exercise routine Target Visit 8
--- NOTE | 2023-10-04 09:33 | PTOPEVAL1 ---
Assessment and note entered by Shira Lee DPT Evaluation Information Assessment Status Re-evaluation Diagnosis B leg weakness Onset 09/20/23 Subjective Information Patient reports over the last year he has noticed decreased B LE strength and impaired balance. He reports he used to be able to walk 2 miles and is now no longer able to do that. He reports any standing or walking for long periods of time cause him fatigue and is difficult. He reports he has had an US done that showed decreased circulation to B feet. He denies pain. Reported Pain Level Pain Score 0: Self Report Assessment PT Clinical Summary Mr. Patel is a 88 year old male who presents to PT with B LE weakness. She demonstrates decreased B ankle strength, decreased B LE flexibility and decreased endurance impairing his abiltiy to stand for house hold tasks and ambulate prolonged distances for shopping and yard work. He would benefit from skilled PT to address impairments to return to PLOF. Plan of Care Interventions Gait Training,Hot Pack/Cold Pack,Manual Therapy, Neuro Re-education,Patient/Caregiver Educati, Therapeutic Activities,Therapeutic Exercise PT Services Indicated Yes Treatment Frequency and 2x weekly for 8 visits Duration These treatments will address the objective and functional deficits as defined above. The patient will be advanced safely and appropriately in order for the patient to progress towards his/her prior level of function. Additional exercises will be introduced and as well as a comprehensive home exercise program upon discharge, if needed, ?to ensure carryover of functional gains achieved in the clinic. This treatment plan has been reviewed and agreement upon by the patient.
--- NOTE | 2023-11-01 10:01 | OPREHPOC ---
Outpatient Therapy Plan of Care This is a Multidisciplinary Plan of Care that may contain components documented by all disciplines (PT, OT, and ST.) PT Problem 1 PT Problem #1 Knowledge Deficit PT Goal 1 Goal Patient to demonstrate independence with HEP Target Visit 4 Progress Met PT Problem 2 PT Problem #2 Impaired Flexibility PT Goal 1 Goal 1. Patient to demonstrate 20 deg of B HS flexibility to improve ability to stand to complete house hold tasks 2. Patient to demonstrate 10 deg of B ankle DF with knee extended to improve ability to ambulate at PLOF Target Visit 8 Progress Not Met PT Problem 3 PT Problem #3 Impaired Functional Mobil PT Goal 1 Goal 1. Patient to demonstrate ability to complete 10 unilateral heel raises B to improve ambulation distance without fatigue to return to shopping 2. Patient to report ability to ambulate 2 miles to return to prior exercise routine Target Visit 8 Progress Partially Met Comment has not attempted to ambulate with weather
--- NOTE | 2023-11-01 10:01 | PTOPDC ---
Assessment and note entered by Shira Lee DPT Evaluation Information Assessment Status Re-evaluation Diagnosis B leg weakness Onset 09/20/23 Subjective Information patient reports he has not noticed alot of change since start of PT but no increase in pain or falls . he reports with the weather he has not had a chance to test how long he can walk. He follows up with a beaver trapper in Nov. He reports he is independent with HEP. Reported Pain Level Pain Score 0: Self Report Assessment PT Clinical Summary Mr. Patel is a 88 year old male who presents to PT with B LE weakness. She demonstrates decreased B ankle strength, decreased B LE flexibility and decreased endurance impairing his abiltiy to stand for house hold tasks and ambulate prolonged distances for shopping and yard work. He would benefit from skilled PT to address impairments to return to PLOF. Plan of Care PT Services Indicated No
--- NOTE | 2023-11-01 10:02 | PTOPDC ---
Assessment and note entered by Shira Lee DPT Evaluation Information Assessment Status Re-evaluation Diagnosis B leg weakness Onset 09/20/23 Subjective Information patient reports he has not noticed alot of change since start of PT but no increase in pain or falls . he reports with the weather he has not had a chance to test how long he can walk. He follows up with a lead miner in Nov. He reports he is independent with HEP. Reported Pain Level Pain Score 0: Self Report Assessment PT Clinical Summary Mr. Patel is a 88 year old male who presents to PT with B LE weakness. She demonstrates decreased B ankle strength, decreased B LE flexibility and decreased endurance impairing his abiltiy to stand for house hold tasks and ambulate prolonged distances for shopping and yard work. He would benefit from skilled PT to address impairments to return to PLOF. Plan of Care PT Services Indicated No
== END 2023-11-01 10:51 | disposition home or self-care (01) ==
LOC: CHSPT 08:14
DX: M79.604 Pain in right leg (principal); M79.605 Pain in left leg
CPT/HCPCS: 97110; 97112; 97161; 97530; 97750

== ENCOUNTER 2024-02-25 16:34 | Outpatient (CLI) | payer MEDICARE, SELFPAY | END 2024-02-25 16:35 | disposition home or self-care (01) | PROVIDERS: Visit Provider Specialist | DX: L57.0 Actinic keratosis (principal) | CPT/HCPCS: 88305 ==

== ENCOUNTER 2024-04-20 19:06 | Emergency (ER) | payer MEDICARE, SELFPAY ==
[2024-04-20] VITALS (36 sets, daily range): BP systolic 126–185; BP diastolic 51–100; PULSE 60–77; RESP 12–23; TEMP 36.1–36.7; O2SAT 91–97
--- NOTE | ~2024-04-20 | CT_ITS ---
EXAMINATION: CT brain wo con DATE: 04/20/2024 20:07 INDICATION: dizziness . TECHNIQUE: Computed tomography (CT) of the head was performed without intravenous contrast. The mA wa s adjusted according to patient size. Iterative reconstruction technique was employed. The dose-lengt h product was 605.33 mGy-cm. COMPARISON: 05/17/2020. FINDINGS: No acute intracranial hemorrhage or extra-axial fluid collection. No hydrocephalus, mass, or herniation. No acute ischemic infarct. Unremarkable dural venous sinus attenuation. No acute osseous abnormality. Ethmoid mucosal thickening, the remaining aerated spaces are clear. Moderate atrophy and chronic white matter change. Atherosclerotic intracranial calcification. Bilater al lens replacements. Focal encephalomalacia in the left frontal lobe. IMPRESSION: No acute intracranial process. Reviewed, dictated and finalized at location K.
--- NOTE | ~2024-04-20 | XR_ITS ---
EXAMINATION: XR chest 2V Exam Date/Time: 04/20/2024 20:00 CDT HISTORY: dizziness Comparison: 09/16/2020. RESULT: Lines, tubes, and devices: None. Lungs and pleura: Emphysematous/senescent change, otherwise clear. Cardiomediastinal silhouette: Stable. Other: No acute osseous or upper abdominal finding. IMPRESSION: No acute cardiopulmonary process. Reviewed, dictated and finalized at location K.
--- NOTE | 2024-04-20 19:13 | ED.DIZZY ---
HPI - Dizziness General Chief Complaint: Dizziness Stated Complaint: light headed Time Seen by Provider: 04/20/24 19:12 Source: patient Mode of arrival: ambulatory Limitations: no limitations History of Present Illness HPI Narrative: 88 year old male presents to the Emergency Department complaining of feeling light headed and dizzy for past several weeks. Denies chest pain, shortness of breath or palpitation. Denies headache. Denies visual changes. Denies symptoms of cold or sinus problems. Denies ear congestion, sore throat, post-nasal drainage. Denies any known fever, cough, congestion, nausea, vomiting, diarrhea. States he is urinating normal amount. No known exposure. Has not seen his PCP regarding this. States he took his blood pressure at home and was concerned because diastolic readings were in the 50's and that is lower than normal. MD elicited complaint: dizziness and lightheadedness Onset (ago): week(s) (2) Timing: intermittent Severity: mild Description: lightheadedness, off-balance and difficulty walking History of similar symptoms: No Exacerbating factors: nothing Relieving factors: nothing Associated symptoms: denies other symptoms Related Data Home Medications Medication Instructions Recorded Confirmed aspirin 325 mg tablet 325 mg PO DAILY 05/20/20 09/16/20 atorvastatin 80 mg tablet 80 mg PO QPM 05/20/20 09/16/20 carvedilol 6.25 mg tablet 6.25 mg DAILY 05/20/20 09/16/20 lisinopril 40 mg tablet 40 mg PO DAILY 05/20/20 09/16/20 metformin 500 mg tablet,extended 500 mg PO DAILY 05/20/20 09/16/20 release 24 hr amlodipine 5 mg tablet 5 mg PO QAM 09/09/20 09/16/20 cholecalciferol (vitamin D3) 25 25 mcg PO DAILY 09/09/20 09/16/20 mcg (1,000 unit) tablet Allergies Allergy/AdvReac Type Severity Reaction Status Date / Time No Known Allergies Allergy Verified 04/20/24 19:19 Review of Systems Review of Systems: All systems reviewed & are unremarkable except as noted in HPI and below Constitutional: Constitutional: Reports as per HPI, Denies chills, Denies fever(s) and Denies weakness Eyes: Eyes: Reports as per HPI and Denies change in vision ENT: Reports system reviewed and no additional complaints, except as documented, Reports dizziness, Denies nasal congestion and Denies sore throat Cardiovascular: Cardiovascular: Reports as per HPI, Reports no additional cardiovascular complaints, Denies chest pain, Denies rapid heart rate and Denies slow heart rate Comments: no palpitations Respiratory: Respiratory: Reports as per HPI, Reports no additional respiratory complaints, Denies chest congestion, Denies cough and Denies dyspnea Gastrointestinal: Gastrointestinal: Reports as per HPI, Denies abdominal pain, Denies diarrhea, Denies nausea and Denies vomiting Genitourinary: Genitourinary: Reports no additional male genitourinary complaints, Denies oliguria, Denies dysuria and Denies urinary frequency Musculoskeletal: Musculoskeletal: Reports no additional musculoskeletal complaints, Denies joint swelling and Denies muscle cramps Integumentary/Breasts: Skin/Breast: Reports system reviewed and no additional complaints, except as docu Neurologic: Reports system reviewed and no additional complaints, except as documented, Reports dizziness, Denies headache(s), Denies focal weakness, Denies numbness and Denies weakness Psychiatric: Psychiatric: Reports no additional psychiatric complaints Endocrine: Endocrine: Reports no additional endocrine complaints Hematologic/Lymphatic: Hematologic/Lymphatic: Reports no additional hematologic/lymphatic complaints Allergic/Immunologic: Allergic/Immunologic: Reports no additional allergic/immunologic complaints PMFSH Past Medical History Medical History Adenomatous colon polyp (~05/2015) Carotid stenosis Status post bilateral carotid endarterectomy. Coronary artery disease Poorly documented in the EMR, [facility]
--- NOTE | 2024-04-20 19:19 | ECG_ITS ---
Test Date: 2024-04-20 19:36:16 Measurements Intervals [place] Rate: 68 P: -1 CT: 144 QRS: -53 QRSD: 139 T: 73 QT: 433 QTc: 462 Interpretive Statements SINUS RHYTHM WITH OCCASIONAL VENTRICULAR PREMATURE COMPLEXES RIGHT BUNDLE BRANCH BLOCK LEFT ANTERIOR FASCICULAR BLOCK BASELINE ARTIFACT- I, II, III, AVR, AVL, AVF, V1-V6 ABNORMAL ECG No previous ECG available for comparison Electronically Signed On 04-20-2024 19:42:41 CDT by Saleem Lund D.O.
[2024-04-20 19:35] LABS: Basophils Absolute Auto 0.05 K/mm3 (0.00-0.10); Basophils Percent Auto 0.5 % (0.0-1.0); Eosinophils Absolute Auto 0.11 K/mm3 (0.02-0.50); Eosinophils Percent Auto 1.1 % (1.0-6.0); Hematocrit 38.5 % (37.0-46.0); Hemoglobin 13.3 g/dL (12.4-15.3); Immature Granulocyte Absolute 0.04 K/mm3 (0.00-0.00); Immature Granulocyte Percent A 0.4 % (0.0-0.0); Lymphocytes Absolute Auto 1.36 K/mm3 (1.10-4.50); Lymphocytes Percent Auto 13.8 % (18.0-42.0); Mean Corpuscular HGB Conc 34.5 g/dL (32-36); Mean Corpuscular Hemoglobin 32.4 pg (27.0-31.0); Mean Corpuscular Volume 93.7 fL (78.0-102.0); Mean Platelet Volume 10.1 fl (8.7-11.0); Monocytes Absolute Auto 0.76 K/mm3 (0.10-0.90); Monocytes Percent Auto 7.7 % (2.0-11.0); Neutrophils Absolute Auto 7.52 K/mm3 (1.70-7.20); Neutrophils Percent Auto 76.5 % (50.0-70.0); Platelet Count Result 211 K/mm3 (150-420); Red Blood Count 4.11 M/mm3 (4.70-6.10); White Blood Count 9.8 K/mm3 (4.8-10.8)
--- NOTE | 2024-04-20 19:38 | PC.NURSE ---
handed pt urinal and let them know a urine was needed. will wait to obtain until after radiology is done with scans
--- NOTE | 2024-04-20 19:44 | PC.NURSE ---
PATIENT TO CT SCAN PER BRIM BLOCKER.
--- NOTE | 2024-04-20 19:45 | PC.NURSE ---
radiology took pt back for scans
[2024-04-20 19:54] LABS: Lactic Acid Reflex 0.6 mmol/L (0.4-2.0)
[2024-04-20 20:00] LABS: Alanine Aminotransferase 22 U/L (16-63); Albumin Level 3.6 g/dL (3.4-5.0); Alkaline Phosphatase 41 U/L (46-116); Anion Gap 5 mmol/L (4-12); Aspartate Amino Transferase 17 U/L (15-37); Bilirubin,Total 0.5 mg/dL (0.00-1.00); Blood Urea Nitrogen 12 mg/dL (7-18); Calcium 8.6 mg/dL (8.5-10.1); Carbon Dioxide 29 mmol/L (21-32); Chloride 101 mmol/L (98-108); Estimated CRCL calculation 59 ml/min; Estimated Glomerular Filt Rate > 60; Glucose 106 mg/dL (70-99); Osmolality Calculated 279 mOsm/kg (285-295); Potassium 4.1 mmol/L (3.5-5.1); Sodium 135 mmol/L (136-145); Troponin I 10.2 ng/L (0.00-60.4)
--- NOTE | 2024-04-20 20:04 | PC.NURSE ---
PATIENT RETURNED FROM IMAGING VIA WHEELCHAIR WITH RETAIL DELIVERY DRIVER. AWAITING RESULTS. ASSISTANT MAINTENANCE MANAGER AT BEDSIDE REQUESTING URINE SPECIMEN. CALL LIGHT WITHIN REACH.
--- NOTE | 2024-04-20 20:10 | PC.NURSE ---
pt unable to urinate at this time
[2024-04-20] MEDS: SODIUM CHLORIDE 0.9% IV 1,000 ML 500 ML IV CONT (20:16)
--- NOTE | 2024-04-20 20:30 | PC.NURSE ---
iv started and ivf infusing per order, see MAR. bilat ears irrigated per order and ERP checked. RN will continue to irrigate left ear per ERP request. vss. RN monitoring.
--- NOTE | 2024-04-20 20:42 | PC.NURSE ---
left ear irrigation completed. ear drum is now visible. patient denies further needs, spouse at bedside. RN monitoring. ivf infusing, call light within reach.
[2024-04-20 21:13] LABS: Appearance Urine Clear (Clear); Bilirubin Urine Negative (Negative); Blood Urine Negative (Negative); Color Urine Light Yellow (Yellow); Glucose Urine UA Negative (Negative); Ketones Urine Negative (Negative); Leukocyte Esterase Ur 1+ (Negative); Nitrate Urine Negative (Negative); Protein Urine Negative (Negative); Urobilinogen Urine 0.2 mg/dL (0.2-1.0); pH Urine 6.5 (5.0-8.0)
[2024-04-20 21:20] LABS: Add Urine Microscopic? YES; RBC Urine 0-2 /hpf (0-2); WBC Urine 0-3 /hpf (0-3)
[2024-04-20 21:21] LABS: Bacteria Urine None Seen /hpf; Squamous Epithelial Cell Urine None seen /hpf (Few)
--- NOTE | 2024-04-20 21:43 | PC.NURSE ---
DR. GOMES AT PATIENT BEDSIDE FOR UPDATE REGARDING RESULTS OF LABS, IMAGING AND PLAN. SPOUSE AT BEDSIDE.
== END 2024-04-20 22:22 | disposition home or self-care (01) ==
PROVIDERS: Emergency Provider Emergency Medicine; PCP Internal Medicine
DX: I95.1 Orthostatic hypotension (principal); R42 Dizziness and giddiness; H61.23 Impacted cerumen, bilateral; I25.10 Atherosclerotic heart disease of native coronary artery without angina pectoris; E11.9 Type 2 diabetes mellitus without complications; E78.5 Hyperlipidemia, unspecified; I10 Essential (primary) hypertension; Z87.891 Personal history of nicotine dependence
CPT/HCPCS: 36415; 70450; 71046; 80053; 81001; 83605; 84484; 85025; 93005; 96360; 96361; 99284; J7030

== ENCOUNTER 2024-07-13 10:13 | Outpatient (CLI) | payer MEDICARE, SELFPAY ==
--- NOTE | ~2024-07-13 | XR_ITS ---
Right Knee Technique: AP and lateral views were obtained. Clinical History: Pain Findings: No fracture or dislocation is seen. Osseous alignment is anatomic. Joint mild degenerative spurring noted. Soft tissues are unremarkable. No joint effusion is seen. Impression: Mild tricompartmental degenerative spurring. Reviewed, dictated and finalized at [facility]. Impression: Mild tricompartmental degenerative spurring.
== END 2024-07-13 10:14 | disposition home or self-care (01) ==
LOC: CHSIMG 10:15
PROVIDERS: PCP Family Medicine; Visit Provider Nurse Practitioner Family
DX: M25.561 Pain in right knee (principal); M17.11 Unilateral primary osteoarthritis, right knee
CPT/HCPCS: 73560

== ENCOUNTER 2024-07-24 12:32 | Outpatient (CLI) | payer MEDICARE, SELFPAY | END 2024-07-24 12:33 | disposition home or self-care (01) | LOC: ANHAUDIO 12:33 | PROVIDERS: PCP Family Medicine; Visit Provider Nurse Practitioner Family | DX: H90.42 Sensorineural hearing loss, unilateral, left ear, with unrestricted hearing on the contralateral side (principal); H90.A31 Mixed conductive and sensorineural hearing loss, unilateral, right ear with restricted hearing on the contralateral side; Q17.3 Other misshapen ear | CPT/HCPCS: 92557; 92567 ==

== ENCOUNTER 2024-12-29 07:32 | Outpatient (CLI) | payer MEDICARE, SELFPAY ==
--- OUTSIDE RECORDS SUMMARY | 2024-12-29 07:37 | XMS_ITS | Encounter Summary ---
Author Organization [facility] Address [address] [place] [address] Phone Care Team Providers Care Air Valve Repairer Name Role Phone Wilner Hare MD Primary Care Provider + Wilner Hare MD Unavailable [phone] Tr Zaman MD Primary Care Provider [phone] Encounter Details Date Type Department Care Team (Latest Contact Info) Description 05/16/2017 Orders Only [facility] CONVERSION Scanning, Provider Social History Tobacco Use Types Packs/Day Years Used Date Smoking Tobacco: Former Alcohol Use Standard Drinks/Week Comments Yes 0 (1 standard drink = 0.6 oz pur e alcohol) Sex and Gender Information Value Date Recorded Sex Assigned at Not on file Legal Sex Male 12:07 AM PARTS CATALOGUER Gender Identity Male 10/04/2020 1:22 PM PARTS CATALOGUER Sexual Orientation Something else 10/04/2020 1: 22 PM PARTS CATALOGUER documented as of this encounter Plan of Treatment Not on file documented as of this encounter Procedures Procedure Name Priority Date/Time Associated Diagnosis Comments VASCULAR LABORATORY REPORT 05/16/2017 10:24 AM CDT documented in this encounter Results * VASCULAR LABORATORY REPORT (05/16/2017 10:24 AM CDT) Anatomical Region Laterality Modality Ultrasound us Provider Scanning CV VASCULAR PROCEDURES Final R esult documented in this encounter Visit Diagnoses Not on filedocumented in this encounter Additional Health Concerns Infection Onset Date Last Indicated Resolved Time COVID: Suspected 03/06/2022 03/06/2022 03/06/2022 7:00 PM CDT Exposure, COVID-19 Comment:Added automatically based on COVID19 lab answers indicating exposure risk 03/06/2022 03/06/2022 03/16/2022 3:05 AM C DT COVID: Suspected 03/06/2022 03/06/2022 03/07/2022 2:04 AM CDT COVID: Suspected 01/18/2023 01/18/2023 01/18/2023 8:24 PM CDT COVID: Suspected 08/24/2024 08/24/2024 08/24/2024 4:50 PM PARTS CATALOGUER documented as of this encounter Care Teams Air Valve Repairer Relationship Specialty Start Date End Date Wilner Hare MD [address] [place] [address] [place] [id number] PCP - General 01/29/17 08/23/24 Tr Zaman MD [address] [place] [address] [place] [id number] PCP - General Family Practice 08/24/24 Wilner Hare MD [address] [place] [address] [place] [id number] 01/23/17 documented as of this encounter
--- OUTSIDE RECORDS SUMMARY | 2024-12-29 07:37 | XMS_ITS | Clinical Summary ---
Author Organization [facility] Address [address] [place] [address] Care Team Providers Care Baggage Screener Name Role Phone Wilner Braxton MD Unavailable [phone] Tr Zaman MD Primary Care Provider [phone] Allergies No known active allergies Medications cholecalciferol (VITAMIN D3) 1,000 unit capsule take 1 capsule by oral route every day 0 0 7 Active atorvastatin (LIPITOR) 80 mg tablet take 1 Tablet by oral route every day 90 3 7 Active aspirin 325 mg tablet Take 1 tablet (325 mg total) by mouth daily Active metFORMIN (GLUCOPHAGE) 500 mg tablet Take 1 tablet by ORAL route every day with meals 90 tablet 3 7 Active acetaminophen (TYLENOL) 325 mg tablet Take 2 tablets (650 mg total) by mouth every 4 (four) hours as needed for pain (as needed for pain). 7 Active amLODIPine (NORVASC) 5 mg tablet Take 1 tablet (5 mg total) by mouth daily Active carvediloL (COREG) 6.25 mg tablet Take 1 tablet (6.25 mg total) by mouth daily Active lisinopriL (PRINIVIL,ZESTRIL) 40 mg tablet Take 1 tablet (40 mg total) by mouth daily Active mupirocin (BACTROBAN) 2 % ointment 0 Active omeprazole (PriLOSEC) 20 mg capsule Take 1 capsule (20 mg total) by mouth daily Active ondansetron ODT (ZOFRAN-ODT) 4 mg disintegrating tabletIndications:N ausea Take 1 tablet (4 mg total) by mouth every 8 (eight) hours as needed for nausea or vomiting 6 tablet 4 Active Active Problems Problem Noted Date Diagnosed Date Abnormal stress test 10/06/2020 BMI 27.0-27.9,adult 06/07/2017 BMI 27.0-27.9,adult 05/31/2017 Assessment & Plan (06/07/2017 8:40 AM CDT): Recommended patient to continue to increase heart healthy diet with adequate fruits, vegetables, and plenty of water along with mild-moderate daily exercise as tolerated. Assessment & Plan (05/31/2017 8:45 AM CDT): Recommended patient to continue to increase heart healthy diet with adequate fruits, vegetables, and plenty of water along with mild-moderate daily exercise as tolerated. Healthcare maintenance 05/15/2017 Medication management 05/15/2017 ASCVD (arteriosclerotic cardiovascular disease) 05/15/2017 Assessment & Plan (06/07/2017 8:47 AM CDT): Continue with antihypertensives along with daily atorvastatin. Low-fat diet was advised as well. Certainly were increasing her exercise as tolerated. Follow up here in 3 months regarding condition Assessment & Plan (05/31/2017 8:48 AM CDT): Continue on carvedilol and lipitor daily as well as aspirin 325 daily as well. Keep follow-up appointment with vascular surgery on June 21 as well. Follow up here in a week Fatigue 04/11/2017 Assessment & Plan (06/07/2017 8:47 AM CDT): Fatigue is improved since decreasing the carvedilol in half. Will continue with the current dosage to manage hypertension and avoid side effects a beta-jayleen. Follow-up in 3 months or certainly sooner if more fatigue/sedation is noted Assessment & Plan (04/11/2017 1:10 PM CDT): Recent laboratory results were reviewed. No acute abnormalities noted. Patient request B12 level be checked. We will draw this today. I have also recommended a 24 hour Holter monitor noting his bradycardia. This will also be beneficial in evaluating the possibility of an underlying sleep apnea. Further direction pending these results. It should be noted patient reports his complaints of fatigue are chronic and ongoing for many months. Patient will follow up here in 1 month, certainly sooner if indicated. Bradycardia 04/11/2017 Assessment & Plan (04/11/2017 1:04 PM CDT): I have recommended a 24 hour event monitor to further evaluate patient's bradycardia. This will also be beneficial in evaluating the possibility of a sleep apnea. Further direction pending his test results. He is to contact the office if he has not heard from me regarding these results within 3 days of having testing completed. RBBB 03/14/2017 Assessment & Plan (06/07/2017 8:49 AM CDT): 2D echocardiogram ordered to further evaluate abnormality noted on EKG. Stress test was done in 2015 indicated a good EF without any concern of any valvular abnormalities or blockages. Will follow-up regarding results of 2D echocardiogram need for additional management Assessment & Plan (05/31/2017 8:46 AM CDT): Considering patient recently had a notable right bundle branch block in December of 2016 and followed up with a stress test in January 2017 which indicated a normal ejection fraction of 65% and no notable blockages, I discussed this with Dr. braxton to verify but with no longer need to complete the stress test to follow-up the right bundle branch block. Patient was advised however to ensure that the vascular surgeons agree with him starting this exercise program. In certainly like any exercise we need to advance as tolerated. Assessment & Plan (04/11/2017 1:07 PM CDT): Will evaluate bradycardia with 24 hour event monitor. Further direction pending these results. He will continue his current medications as previously prescribed. 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 Continue to see vascular surgeon to determine if there is any further testing necessary but it seemed that with there is no concern of further stenosis of the right carotid based on absence of bruit on right side. Blood pressure is even been improved since having the endarterectomy. Polyp of colon 01/03/2017 Overview (03/01/2017): Colon polyp Dyslipidemia 01/03/2017 Overview (03/01/2017): Dyslipidemia Hypertension 01/03/2017 Overview (03/01/2017): HTN Assessment & Plan (06/07/2017 8:46 AM CDT): Stable in office considering he has been taking antihypertensive has the morning. I did advise him to continue with half a dose of the carvedilol as previously prescribed along with the head daily lisinopril and amlodipine. Certainly continue with dash diet and increasing exercise as tolerated. Continue with the 2D echocardiogram considering his right bundle branch block and we will evaluate heart health before starting recommended exercise program. 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 He will continue on his current dose of amlodipine as well as lisinopril at this time as well. I advised them to bring in his blood pressure monitor for the blood pressure checked we have here in a week to touch base with him and see how he is feeling. Certainly will see him here sooner than the week follow-up if there is any concern regarding elevated or lower blood pressure readings. Assessment & Plan (04/11/2017 1:07 PM CDT): Hypertension is controlled. He will continue his current medications as previously prescribed. He will continue routine monitoring on home ambulatory cuff. Close follow-up here as directed. Certainly sooner with absolutely any change in, worsening, or non improvement in condition. Diabetes mellitus 01/03/2017 Overview (03/01/2017): Diabetes Osteoarthritis 01/03/2017 Overview (03/01/2017): OA Immunizations Immunization Administration Dates Next Due TD Preservative Free 09/10/2016 Surgical History Surgery Date Site/Laterality Comments CARDIAC CATHETERIZATION Medical History Medical History Date Comments Osteoarthritis of knee OA - Oste oarthritis of knee; Comments: [facility] 01/03/2017 - Benign prostatic hyperplasia BPH - Benign prostatic hypertrophy; Comments: [facility] 01/03/2017 - Decreased hearing Decreased hear ing; Comments: [facility] 01/03/2017 -; Laterality: left Cataract Cataract; Commen ts: [facility] 01/03/2017 -; Laterality: bilateral Hypertension Hyperlipidemia Diabetes mellitus (HCC) PVD (peripheral vascular disease) Family History Medical History Relation Name Comments Diabetes Brother Diabetes mellit ; Emphysema Father Emphysema; Aortic stenosis Mother Heart disease Other Family history of Heart disease; Emphysema Sister Emphysema; Relation Name Status Comments Brother Father Mother Other Sister Social History Tobacco Use Types Packs/Day Years Used Date Smoking Tobacco: Former Smokeless Tobacco: Never Alcohol Use Standard Drinks/Week Comments Yes 0 (1 standard drink = 0.6 oz pur e alcohol) Sex and Gender Information Value Date Recorded Sex Assigned at Not on file Legal Sex Male 12:07 AM DINING CAR STEWARD Gender Identity Male 10/04/2020 1:22 PM DINING CAR STEWARD Sexual Orientation Something else 10/04/2020 1: 22 PM DINING CAR STEWARD Obstetrics History Last Filed Vital Signs Vital Sign Reading Time Taken Comments Blood Pressure 122/80 08/24/2024 4:32 PM DINING CAR STEWARD Pulse 67 08/24/2024 4:32 PM DINING CAR STEWARD Temperature 36.7 C (98 F) 08/24/2024 4:32 PM DINING CAR STEWARD Respiratory Rate 20 08/24/2024 4:32 PM DINING CAR STEWARD Oxygen Saturation 97% 08/24/2024 4:32 PM DINING CAR STEWARD Inhaled Oxygen Concentration - - Weight 76.7 kg (169 lb) 08/24/2024 4:32 PM DINING CAR STEWARD Height 172.7 cm (5' 8 ) 12/04/2023 9:23 AM DINING CAR STEWARD Body Mass Index 25.7 12/04/2023 9:23 AM DINING CAR STEWARD Plan of Treatment Health Maintenance Due Date Last Done Comments Colon Cancer Screening-Colonoscopy 1937 Fall Risk Assessment 1935 Dilated Eye Exam 1937 Hepatitis B Screening 1955 Pneumococcal vaccine 65+ (1 of 2 - PCV) 1956 Zoster Vaccine (1 of 2) 1987 Well Visit 65+ 2002 DTaP/Tdap/Td Vaccine (1 - Tdap) 09/11/2016 6 Lipid Panel 02/28/2018 02/28/2017, 01/03/2017 Depression Screening 06/07/2018 06/07/2017, 05/31/2017, 05/15/2017, Additional history exists Foot Exam 06/07/2018 06/07/2017, 05/08, 05/15/2017 Prostate Cancer Screening-PSA 01/03/2019 01/03/2017 Hemoglobin A1C 03/27/2023 09/26/2022, 05/07, 02/28/2017 Albumin Creatinine Ratio, Urine 09/26/2023 2 eGFR 09/26/2023 09/26/2022, 05/01/2017 Covid-19 Vaccine (2023-2 5 season) 2024 08/20/2021, 12/02/2020, 11/04/2020 Influenza Vaccine (#1) 2024 06/22/2021, 2016 Procedures Procedure Name Priority Date/Time Associated Diagnosis Comments BASIC METABOLIC PANEL Routine 09/26/2022 9:44 AM DINING CAR STEWARD HEMOGLOBIN A1C Routine 09/26/2022 9:44 AM DINING CAR STEWARD ALBUMIN CREATININE RATIO, URINE Routine 09/26/2022 9:44 AM DINING CAR STEWARD DIABETES FOOT EXAM Routine 06/07/2017 LIPID PANEL After X-Ray 02/28/2017 11:33 PM CDT PSA SCREENING Routine 01/03/2017 from Last 3 Months or Most Recently Relevant to Health Maintenance Results * Albumin Creatinine Ratio, Urine (09/26/2022 9:44 AM DINING CAR STEWARD) Pathologist [facility] Creatinine ur 54.8 Not Estab. mg/dL [facility] - 01 Microalbumin, ur 7.0 Not Estab. ug/mL [facility] - 01 Microalbumin/cre at ratio 13 0 - 29 mg/g creat [facility] - 01 Comment: Normal: 0 - 29 Moderately increased: 30 - 300 Severely increased: >300 09/26/2022 9:44 AM DINING CAR STEWARD 09/26/2022 Narrative [facility] - 09/27/2022 8:14 AM DINING CAR STEWARD Performed at: [address] [place] [id number] Hog Tender: Imer Morgan PhD, Phone: [phone] Wilner Braxton MD LAB URINE ORDERABLES Fin al Result Performing Organization Address [facility] de Phone Number [facility] - * (ABNORMAL) Hemoglobin A1c (09/26/2022 9:44 AM DINING CAR STEWARD) Pathologist [facility] Hgb A1C 6.8(H) 4.8 - 5.6 % [facility] - 01 Comment: Prediabetes: 5.7 - 6.4 Diabetes: >6.4 Glycemic control for adults with diabetes: <7.0 09/26/2022 9:44 AM DINING CAR STEWARD 09/26/2022 Narrative [facility] - 09/27/2022 7:09 AM DINING CAR STEWARD Performed at: Lab[address] [id number] Hog Tender: Imer Morgan PhD, Phone: [phone] Wilner Braxton MD LAB BLOOD ORDERABLES Fin al Result Performing Organization Address [facility] de Phone Number [facility] - * (ABNORMAL) Basic metabolic panel (09/26/2022 9:44 AM DINING CAR STEWARD) [facility] [address] Glucose 145(H) 70 - 99 mg/dL [facility] - 01 BUN 12 8 - 27 mg/dL [facility] - 01 Creatinine, Serum 0.62(L) 0.76 - 1.27 mg/dL [facility] - 01 eGFR 94 >59 mL/min/1.7 3 [facility] - 01 BUN/creat ratio 19 10 - 24 [facility] - 01 Sodium 138 134 - 144 mmol/L [facility] - 01 Potassium, sr 5.2 3.5 - 5.2 mmol/L [facility] - 01 Chloride 100 96 - 106 mmol/L [facility] - 01 CO2 27 20 - 29 mmol/L [facility] - 01 Calcium 9.6 8.6 - 10.2 mg/dL [facility] - 01 09/26/2022 9:44 AM DINING CAR STEWARD 09/26/2022 Narrative [facility] - 09/27/2022 7:09 AM DINING CAR STEWARD Performed at: - [address] [id number] Hog Tender: Imer Morgan PhD, Phone: [phone] Wilner Braxton MD LAB BLOOD ORDERABLES Fin al Result [facility] - 01 * DIABETES FOOT EXAM (06/07/2017) [facility] Diabetic Foot Exam Normal Historical Provider HEALTH MAINTENANCE Final Result * Lipid panel (02/28/2017 11:33 PM CDT) [facility] [address] Cholesterol 89 30 - 200 mg/dL [facility] Comment: Interpretive Data Desirable: <200 mg/dL Borderline high: 200-239 mg/dL High: > or = 240 mg/dL Literature Reference: National Cholesterol Education Program (NCEP) Expert Panel on Detection, Evaluation, and Treatment of High Blood Cholesterol in Adults (Adult Treatment Panel III). Circulation 2004; 110:227. Current interpretive data was last revised on 2015. Triglycerides 49 0 - 150 mg/dL [facility] Comment: Interpretive Data Desirable: < 150 mg/dL Borderline High: 150 - 199 mg/dL High: 200 - 499 mg/dL Very High: > or = 499 mg/dL Literature Reference: See Cholesterol Current interpretive data was last revised on 2015. HDL 40 >=40 mg/dL [facility] Comment: Interpretive Data Less than 40 mg/dL - low; A major risk factor for heart disease. Greater than or equal to 60 mg/dL - High; considered protective of heart disease. Literature Reference: See Cholesterol Current interpretive data was last revised on 2015. LDL, calculated 39 10 - 129 mg/dL [facility] Comment: Interpretive Data Optimal: < 100 mg/dL Near Optimal: 100 - 129 mg/dL Borderline High: 130 - 159 mg/dL High: 160 - 189 mg/dL Very high: > or = 190 mg/dL Literature Reference: See Cholesterol Current interpretive data was last revised on 2015. Non-HDL Cholesterol 49 mg/dL [facility] Comment: Interpretive Data When triglycerides are >200 mg/dL, non-HDL C is a secondary target of therapy, with a goal 30 mg/dL higher than the identified LDL-C goal. Reference: See Cholesterol Reference. Current interpretive data was last revised 2015. Blood specimen (specimen) 02/28/2017 11:33 PM CDT 03/01/2017 12:43 AM CDT us Sterling Hernandez MD LAB BLOOD ORDERABLES Ashlyn reed Result [facility] Department [place] [address] * PSA SCREENING (01/03/2017) PSA Normal us Historical Provider HEALTH MAINTENANCE Final Result from Last 3 Months or Most Recently Relevant to Health Maintenance Insurance [facility] MEDICARE ADVANTAGE R HMO REF Member Subscriber Plan / Payer ( fective 2021-) Name:Mark Patel Relation to Subscriber:Self Name:Mark Patel Payer ID:[id number] ([facility]) Type:UHC MEDICARE Address: [place] [id number] UHC MEDICARE ADVANTAGE [facility] MEDICARE Address: [facility] [address] [place] [address] Care Teams Baggage Screener Relationship Specialty Start Date End Date Tr Zaman MD [address] [place] [address] [place]ARTE [id number] PCP - General Family Practice 08/24/24 Wilner Braxton MD [address] [place] [address] [place]ARTE [id number] 01/23/17
--- OUTSIDE RECORDS SUMMARY | 2024-12-29 07:37 | XMS_ITS | Encounter Summary ---
Author Organization [facility] Address [address] [place] [address] Phone Care Team Providers Care Real Estate Leasing Agent Name Role Phone Wilner Hare MD Primary Care Provider + Wilner Hare MD Unavailable [phone] Tr Zaman MD Primary Care Provider [phone] Encounter Details Date Type Department Care Team (Latest Contact Info) Description 06/22/2017 Orders Only [facility] CONVERSION Scanning, Provider Social History Tobacco Use Types Packs/Day Years Used Date Smoking Tobacco: Former Alcohol Use Standard Drinks/Week Comments Yes 0 (1 standard drink = 0.6 oz pur e alcohol) Sex and Gender Information Value Date Recorded Sex Assigned at Not on file Legal Sex Male 12:07 AM MASH FILTER PRESS OPERATOR Gender Identity Male 10/04/2020 1:22 PM MASH FILTER PRESS OPERATOR Sexual Orientation Something else 10/04/2020 1: 22 PM MASH FILTER PRESS OPERATOR documented as of this encounter Plan of Treatment Not on file documented as of this encounter Procedures Procedure Name Priority Date/Time Associated Diagnosis Comments VASCULAR LABORATORY REPORT 06/22/2017 6:55 AM CDT documented in this encounter Results * VASCULAR LABORATORY REPORT (06/22/2017 6:55 AM CDT) Anatomical Region Laterality Modality Ultrasound [...] COVID: Suspected 08/24/2024 08/24/2024 08/24/2024 4:50 PM MASH FILTER PRESS OPERATOR documented as of this encounter Care Teams Real Estate Leasing Agent Relationship Specialty Start Date End Date Wilner Hare MD [address] [place] [address] [place] [id number] PCP - General 01/29/17 08/23/24 Tr Zaman MD [address] [place] [address] [place] [id number] PCP - General Family Practice 08/24/24 Wilner Hare MD [address] [place] [address] [place] [id number] 01/23/17 documented as of this encounter
--- OUTSIDE RECORDS SUMMARY | 2024-12-29 07:37 | XMS_ITS | Encounter Summary ---
Author Organization [facility] Address [address] [place] [address] Phone Care Team Providers Care Expanded Duty Dental Assistant Name Role Phone Wilner Hare MD Primary Care Provider + Wilner Hare MD Unavailable [phone] Tr Zaman MD Primary Care Provider [phone] Encounter Details Date Type Department Care Team (Latest Contact Info) Description 01/22/2018 Orders Only [facility] CONVERSION Scanning, Provider Social History Tobacco Use Types Packs/Day Years Used Date Smoking Tobacco: Former Alcohol Use Standard Drinks/Week Comments Yes 0 (1 standard drink = 0.6 oz pur e alcohol) Sex and Gender Information Value Date Recorded Sex Assigned at Not on file Legal Sex Male 12:07 AM CLINICAL SCIENCE LIAISON Gender Identity Male 10/04/2020 1:22 PM CLINICAL SCIENCE LIAISON Sexual Orientation Something else 10/04/2020 1 :22 PM CLINICAL SCIENCE LIAISON documented as of this encounter Plan of Treatment Not on file documented as of this encounter Procedures Procedure Name Priority Date/Time Associated Diagnosis Comments VASCULAR LABORATORY REPORT 01/22/2018 3:16 PM CDT documented in this encounter Results * VASCULAR LABORATORY REPORT (01/22/2018 3:16 PM CDT) Anatomical Region Laterality Modality Ultrasound us [...] COVID: Suspected 08/24/2024 08/24/2024 08/24/2024 4:50 PM CLINICAL SCIENCE LIAISON documented as of this encounter Care Teams Expanded Duty Dental Assistant Relationship Specialty Start Date End Date Wilner Hare MD [address] [place] [address] [place] [id number] PCP - General 01/29/17 08/23/24 Tr Zaman MD [address] [place] [address] [place] [id number] PCP - General Family Practice 08/24/24 Wilner Hare MD [address] [place] [address] [place] [id number] 01/23/17 documented as of this encounter
--- OUTSIDE RECORDS SUMMARY | 2024-12-29 07:37 | XMS_ITS | Referral Summary ---
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 [...] Dates Next Due TD Preservative Free 09/10/2016 Social History Tobacco Use Types Packs/Day Years Used Date Smoking Tobacco: Former Smokeless Tobacco: Never Alcohol Use Standard Drinks/Week Comments Yes 0 (1 standard drink = 0.6 oz pur e alcohol) Sex and Gender Information Value Date Recorded Sex Assigned at Not on file Legal Sex Male 12:07 AM PAPER MILL SUPERINTENDENT Gender Identity Male 10/04/2020 1:22 PM PAPER MILL SUPERINTENDENT Sexual Orientation Something else 10/04/2020 1: 22 PM PAPER MILL SUPERINTENDENT Last Filed Vital Signs Vital Sign Reading Time Taken Comments Blood Pressure 122/80 08/24/2024 4:32 PM PAPER MILL SUPERINTENDENT Pulse 67 08/24/2024 4:32 PM PAPER MILL SUPERINTENDENT Temperature 36.7 C (98 F) 08/24/2024 4:32 PM PAPER MILL SUPERINTENDENT Respiratory Rate 20 08/24/2024 4:32 PM PAPER MILL SUPERINTENDENT Oxygen Saturation 97% 08/24/2024 4:32 PM PAPER MILL SUPERINTENDENT Inhaled Oxygen Concentration - - Weight 76.7 kg (169 lb) 08/24/2024 4:32 PM PAPER MILL SUPERINTENDENT Height 172.7 cm (5' 8 ) 12/04/2023 9:23 AM PAPER MILL SUPERINTENDENT Body Mass Index 25.7 12/04/2023 9:23 AM PAPER MILL SUPERINTENDENT Plan of Treatment Not on file Procedures Procedure Name Priority Date/Time Associated Diagnosis Comments BASIC METABOLIC PANEL Routine 09/26/2022 9:44 AM PAPER MILL SUPERINTENDENT HEMOGLOBIN A1C Routine 09/26/2022 9:44 AM PAPER MILL SUPERINTENDENT ALBUMIN CREATININE RATIO, URINE Routine 09/26/2022 9:44 AM PAPER MILL SUPERINTENDENT HM DIABETES FOOT EXAM Routine 06/07/2017 LIPID PANEL After X-Ray 02/28/2017 11:33 PM CDT PSA SCREENING Routine 01/03/2017 from Last 3 Months or Most Recently Relevant to Health Maintenance Results * Albumin Creatinine Ratio, Urine (09/26/2022 9:44 AM PAPER MILL SUPERINTENDENT) Creatinine ur 54.8 Not Estab. mg/dL [facility] - 01 Microalbumin, ur 7.0 Not Estab. ug/mL [facility] - 01 Microalbumin/cre at ratio 13 0 - 29 mg/g creat [facility] - 01 Comment: Normal: 0 - 29 Moderately increased: 30 - 300 Severely increased: >300 09/26/2022 9:44 AM PAPER MILL SUPERINTENDENT 09/26/2022 Narrative [facility] - 09/27/2022 8:14 AM PAPER MILL SUPERINTENDENT Performed at: [address] [place] [id number] Set Up Machinist: Imer Morgan PhD, Phone: [phone] Wilner Braxton MD LAB URINE ORDERABLES Fin al Result Performing Organization Address [facility] de Phone Number [facility]CO [facility] - 01 * (ABNORMAL) Hemoglobin A1c (09/26/2022 9:44 AM PAPER MILL SUPERINTENDENT) Hgb A1C 6.8(H) 4.8 - 5.6 % [facility] - 01 Comment: Prediabetes: 5.7 - 6.4 Diabetes: >6.4 Glycemic control for adults with diabetes: <7.0 09/26/2022 9:44 AM PAPER MILL SUPERINTENDENT 09/26/2022 Narrative [facility] - 09/27/2022 7:09 AM PAPER MILL SUPERINTENDENT Performed at: [address] [place] [id number] Set Up Machinist: Imer Morgan PhD, Phone: [phone] Wilner Braxton MD LAB BLOOD ORDERABLES Fin al Result Performing Organization Address [facility] Co de Phone Number [facility] - 01 * (ABNORMAL) Basic metabolic panel (09/26/2022 9:44 AM PAPER MILL SUPERINTENDENT) Pathologist [facility] Glucose 145(H) 70 - 99 mg/dL [facility] [...] mg/dL [facility] - 01 09/26/2022 9:44 AM PAPER MILL SUPERINTENDENT 09/26/2022 Narrative [facility] - 09/27/2022 7:09 AM PAPER MILL SUPERINTENDENT Performed at: - [facility] [address] [id number] Set Up Machinist: Imer Morgan PhD, Phone: [phone] Wilner Braxton MD LAB BLOOD ORDERABLES Fin al Result [facility] - 01 * DIABETES FOOT EXAM (06/07/2017) [facility] Diabetic Foot Exam Normal Historical Provider HEALTH MAINTENANCE Final Result * Lipid panel (02/28/2017 11:33 PM CDT) Pathologist [facility] Cholesterol 89 30 - 200 mg/dL [facility] Comment: Interpretive Data Desirable: <200 mg/dL Borderline high: 200-239 mg/dL High: > or = 240 mg/dL Literature Reference: National Cholesterol Education Program (NCEP) Expert Panel on Detection, Evaluation, and Treatment of High Blood Cholesterol in Adults (Adult Treatment Panel III). Circulation 2004; 110:227. Current interpretive data was last revised on 2015. Triglycerides 49 0 - 150 mg/dL [facility] Comment: Interpretive Data Desirable: < 150 mg/dL Borderline High: 150 - 199 mg/dL High: 200 - 499 mg/dL Very High: > or = 499 mg/dL Literature Reference: See Cholesterol Current interpretive data was last revised on 2015. HDL 40 >=40 mg/dL [facility] Comment: Interpretive Data Less than 40 mg/dL - low; A major risk factor for heart disease. Greater than or equal to 60 mg/dL - High; considered protective of heart disease. Literature Reference: See Cholesterol Current interpretive data was last revised on 2015. LDL, calculated 39 10 - 129 mg/dL [facility] Comment: Interpretive Data Optimal: < 100 mg/dL Near Optimal: 100 - 129 mg/dL Borderline High: 130 - 159 mg/dL High: 160 - 189 mg/dL Very high: > or = 190 mg/dL Literature Reference: See Cholesterol Current interpretive data was last revised on 2015. Non-HDL Cholesterol 49 mg/dL [facility] Comment: Interpretive Data When triglycerides are >200 mg/dL, non-HDL C is a secondary target of therapy, with a goal 30 mg/dL higher than the identified LDL-C goal. Reference: See Cholesterol Reference. Current interpretive data was last revised 2015. Blood specimen (specimen) 02/28/2017 11:33 PM CDT 03/01/2017 12:43 AM CDT Sterling Hernandez MD LAB BLOOD ORDERABLES Ashlyn l Result [facility] Department [place] [address] * PSA SCREENING (01/03/2017) Pathologist [facility] PSA Normal Historical Provider HEALTH MAINTENANCE Final Result from Last 3 Months or Most Recently Relevant to Health Maintenance [facility] [place] [address] [facility] [place] [address] [facility] [place] [address] Care Teams Joint Special Operations Relationship Specialty Start Date End Date Tr Zaman MD [facility] [place] [address] PCP - General Family Practice 08/24/24 Wilner Braxton MD [address] [place] [address] [place] [address] 01/23/17
--- NOTE | 2024-12-29 07:51 | ECHO_ITS ---
Patient Info Name: Mark Patel Age: 89 years : 1935 Gender: Male Ht: 68 in Wt: 170 lbs BSA: 1.94 m2 HR: 57 bpm BP: 125 / 58 mmHg Technical Quality: Good Exam Date: 12/29/2024 8:08 AM Exam Location: Echo Lab Patient Status: Outpatient Admit Date: 12/29/2024 Staff Ordering Physician: Tr Zaman MD Press Tender Short Goods: Delmy Bartholomew RDCS Attending Provider: Tr Zaman MD Referring Physician: Austyn MACKAY; Exam Type: CA echo doppler color flow Study Info Indications R01.1 - Cardiac murmur, unspecified Complete two-dimensional, color flow and Doppler transthoracic echocardiogram is performed. Summary 1. Complete two-dimensional, color flow and Doppler transthoracic echocardiogram is performed. 2. Left ventricular chamber dimension is normal. 3. Left ventricular systolic function is normal, estimated at 60-65%. 4. The left ventricular diastolic function is abnormal. 5. E/e' 13 is mildly elevated. 6. Left atrial chamber dimension is mildly enlarged. 7. There is moderate aortic valve sclerosis. 8. There is mild mitral valve regurgitation. 9. No pulmonary hypertension, estimated pulmonary arterial systolic pressure is 31 mmHg. Left Ventricle E/e' 13 is mildly elevated. Left ventricular chamber dimension is normal. Left ventricular systolic function is normal, estimated at 60-65%. The left ventricular diastolic function is abnormal. Right Ventricle Right ventricular systolic function is normal and with normal TAPSE 2.0 cm. Right ventricular chamber dimension is normal. Left Atria Left atrial chamber dimension is mildly enlarged. Right Atria Right atrial chamber dimension is normal. Aortic Valve The aortic valve is trileaflet. There is moderate aortic valve sclerosis. There is no aortic valve stenosis. There is no aortic valve regurgitation. Pulmonic Valve There is no pulmonic regurgitation. Mitral Valve There is no mitral valve stenosis. There is mild mitral valve regurgitation. Tricuspid Valve There is no tricuspid valve regurgitation. No pulmonary hypertension, estimated pulmonary arterial systolic pressure is 31 mmHg. Pericardium/Pleural There is no pericardial effusion. Inferior Vena Cava Normal inferior vena cava with >50% collapse upon inspiration consistent with normal right atrial pressure, 5 mmHg. Aorta The aortic root size at the sinus of Valsalva is normal. Left Ventricular Outflow Tract Name Value Normal LVOT 2D LVOT Diameter 2.0 cm LVOT Doppler LVOT Peak Gradient 4 mmHg LVOT Mean Gradient 2 mmHg LVOT VTI 24 cm LVOT VTI/AV VTI Ratio 0.5 LVOT Stroke Volume 77 ml LVOT CO 13.0 l/min LVOT CI 6.7 l/min/m2 Pulmonic Valve Name Value Normal PV Doppler PV Peak Gradient 3 mmHg Mitral Valve Name Value Normal MV Doppler MV Decel Alger 447 cm/s2 MV PHT 60 ms MV Area (PHT) 3.7 cm2 4.0-5.0 MV Diastolic Function MV E Peak Velocity 92 cm/s MV A Peak Velocity 88 cm/s MV E/A 1.0 MV Decel Time 205 ms MV Annular TDI MV E/e' (Septal) 11.1 <=8.0 MV E/e' (Lateral) 15.6 <=8.0 MV E/e' (Average) 13.4 Tricuspid Valve Name Value Normal TV Regurgitation Doppler TR Peak Velocity 253 cm/s TR Peak Gradient 26 mmHg Estimated PAP/RSVP RA Pressure 5 mmHg <=5 PA Systolic Pressure 31 mmHg <36 RV Systolic Pressure 31 mmHg <36 Aorta Name Value Normal Ascending Aorta Ao Root Diameter (MM) 3.1 cm Ao Root Diam Index (MM) 1.6 cm/m2 Aortic Valve Name Value Normal AV Doppler AV Peak Velocity 194 cm/s AV Peak Gradient 13 mmHg AV Mean Gradient 8 mmHg AV VTI 47 cm AV Area (Cont Eq VTI) 1.6 cm2 >=3.0 AV Area (Cont Eq Robin) 1.6 cm2 AV Regurgitation 2D LVOT Area 3.2 cm2 Ventricles Name Value Normal LV Dimensions 2D/MM IVS Diastolic Thickness (2D) 1.0 cm 0.6-1.0 LVID Diastole (2D) 5.2 cm 4.2-5.8 LVIW Diastolic Thickness (2D) 1.0 cm 0.6-1.0 LVID Systole (2D) 3.8 cm 2.5-4.0 LVOT Diameter 2.0 cm LV Mass (2D Cubed) 196.57 g 88.00-224.00 LV Mass Index (2D Cubed) 102 g/m2 49-115 Relative Wall Thickness (2D) 0.37 LV Fractional Shortening/Ejection Fraction 2D/MM LV Fractional Shortening (2D) 27 % 25-43 LV EF (2D Teicholz) 52 % 52-72 LV Diastolic Volume (4C MOD) 143 ml LV EF (4C MOD) 70 % LV Diastolic Volume (2C MOD) 95 ml LV EF (2C MOD) 50 % LV Diastolic Volume (BP MOD) 117 ml 62-150 LV Diastolic Volume Index (BP MOD) 61 ml/m2 34-74 LV Systolic Volume (BP MOD) 46 ml 21-61 LV Systolic Volume Index (BP MOD) 24 ml/m2 11-31 LV EF (BP MOD) 61 % 52-72 LV Diastolic Length (4C) 7.8 cm LV Systolic Length (4C) 6.3 cm LV Stroke Volume (4C MOD) 100 ml RV Dimensions 2D/MM RVID Diastole (2D) 4.2 cm 2.5-3.5 Atria Name Value Normal LA Dimensions LA Dimension (MM) 3.7 cm 3.0-4.1 LA Volume (4C A-L) 36 ml LA Volume (BP A-L) 36 ml RA Dimensions RA Area (4C) 16.5 cm2 <=18.0 Report Signatures
== END 2024-12-29 07:33 | disposition home or self-care (01) ==
PROVIDERS: PCP Family Medicine; Visit Provider Family Medicine
DX: R93.1 Abnormal findings on diagnostic imaging of heart and coronary circulation (principal); R01.1 Cardiac murmur, unspecified
CPT/HCPCS: 93306

== ENCOUNTER 2025-02-18 13:24 | Emergency (ER) | payer MEDICARE, SELFPAY ==
[2025-02-18] VITALS (26 sets, daily range): BP systolic 162–199; BP diastolic 59–78; PULSE 63–82; RESP 15–25; TEMP 36.8; O2SAT 94–100
--- NOTE | ~2025-02-18 | CT_ITS ---
EXAMINATION: CT brain wo con DATE: 02/18/2025 15:06 INDICATION: Dizziness, lightheadedness and nausea TECHNIQUE: Computed tomography (CT) of the head was performed without intravenous contrast. Sagittal and coronal reconstructions were performed. The mA was adjusted according to patient size. Iterative reconstruction technique was employed. The dose-length product was 681.00 mGy-cm. COMPARISON: head CT dated 07/21/2024 FINDINGS: Unchanged small region of encephalomalacia in the anterior left frontal lobe consistent with sequela of old infarct. No acute intracranial hemorrhage, acute infarction or abnormal extra axial fluid yaya ection. There is mild to moderate scattered white matter hypoattenuation consistent with chronic smal l vessel ischemic disease. Unchanged mild partial the temporal and occipital horns of the left and ri ght lateral ventricles and mild increased prominence of the sulci consistent with mild to moderate ag e-appropriate diffuse volume loss. No mass/mass effect. Changes of bilateral intraocular lens replace ment. The orbits and mastoid air cells are normal. Mild mucosal thickening bilateral ethmoid sinuses. IMPRESSION: 1. 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 No acute intracranial process. 2. Age-related changes including mild to moderate diffuse volume loss and mild to moderate scattered white matter hypoattenuation consistent with chronic small vessel ischemic disease. Reviewed, dictated and finalized at location A. IMPRESSION: 1. 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 No acute intracranial process . 2. Age-related changes including mild to moderate diffuse volume loss and mild to moderate scattered white matter hypoattenuation consistent with chronic smal l vessel ischemic disease.
--- NOTE | ~2025-02-18 | CT_ITS ---
EXAMINATION: CT abdomen pelvis w con DATE: 02/18/2025 15:05 INDICATION: Right-sided abdominal pain and episode of vomiting. TECHNIQUE: Computed tomography (CT) of the abdomen and pelvis was performed with 100 mL Omnipaque-350 intravenous contrast. Automated exposure control and iterative reconstruction technique were employe d. The dose-length product was 578.66 mGy-cm. COMPARISON: None FINDINGS: Mild dependent atelectasis in the bilateral lower lobes and mild discoid atelectasis at the lingula. Heart size normal. Atherosclerotic coronary artery calcific lesion. No pericardial or pleural effusio n. Focal hepatic steatosis at the ligamentum teres. There are multiple small calcite gallstones the d ependent aspect of the gallbladder. There appears be a trace amount of pericholecystic fluid which co uld be seen with acute cholecystitis. Spleen, pancreas, bilateral adrenal glands and kidneys are norm al. Bowels including the appendix are normal. Small bilateral fat-containing inguinal hernias. There is diffuse wall thickening of the incompletely distended bladder which could be related to chronic ou tlet obstruction from the enlarged prostate or due to cystitis either acute or chronic. No free intra peritoneal gas or fluid. No pathologically enlarged abdominal or pelvic lymphadenopathy. Mild to mode rate scattered degenerative skeletal changes in the spine and pelvis. IMPRESSION: 1. Cholelithiasis with trace amount of pericholecystic fluid suspicious for acute cholecystitis. Paola elate for Barker sign and could consider HIDA scan for further evaluation as clinically indicated. 2. Diffuse wall thickening of the bladder which could be due to chronic outlet obstruction from the e nlarged prostate or due to cystitis either acute or chronic. Correlate with urinalysis. Reviewed, dictated and finalized at location A. IMPRESSION: 1. Cholelithiasis with trace amount of pericholecystic fluid suspicious for acu te cholecystitis. Correlate for Barker sign and could consider HIDA scan for fu rther evaluation as clinically indicated. 2. Diffuse wall thickening of the bladder which could be due to chronic outlet obstruction from the enlarged prostate or due to cystitis either acute or chron ic. Correlate with urinalysis.
--- OUTSIDE RECORDS SUMMARY | 2025-02-18 13:29 | XMS_ITS | Clinical Summary ---
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 [...] OA - Oste oarthritis of knee; Comments: [facility] 01/03/2017 - Benign prostatic hyperplasia BPH - Benign prostatic hypertrophy; Comments: [facility] 01/03/2017 - Decreased hearing Decreased hear ing; Comments: [facility] 01/03/2017 -; Laterality: left Cataract Cataract; Commen ts: [facility] 01/03/2017 -; Laterality: bilateral Hypertension Hyperlipidemia Diabetes [...] on file Legal Sex Male 12:07 AM TREE GIRDLER Gender Identity Male 10/04/2020 1:22 PM TREE GIRDLER Sexual Orientation Something else 10/04/2020 1: 22 PM TREE GIRDLER Obstetrics History Last Filed Vital Signs Vital Sign Reading Time Taken Comments Blood Pressure 122/80 08/24/2024 4:32 PM TREE GIRDLER Pulse 67 08/24/2024 4:32 PM TREE GIRDLER Temperature 36.7 C (98 F) 08/24/2024 4:32 PM TREE GIRDLER Respiratory Rate 20 08/24/2024 4:32 PM TREE GIRDLER Oxygen Saturation 97% 08/24/2024 4:32 PM TREE GIRDLER Inhaled Oxygen Concentration - - Weight 76.7 kg (169 lb) 08/24/2024 4:32 PM TREE GIRDLER Height 172.7 cm (5' 8 ) 12/04/2023 9:23 AM TREE GIRDLER Body Mass Index 25.7 12/04/2023 9:23 AM TREE GIRDLER Plan of Treatment Health Maintenance Due Date [...] season) 2024 08/20/2021, 12/02/2020, 11/04/2020 Influenza Vaccine (Season Ended) 2025 06/22/20, 07/19/2017 Procedures Procedure Name Priority Date/Time Associated Diagnosis Comments BASIC METABOLIC PANEL Routine 09/26/2022 9:44 AM TREE GIRDLER HEMOGLOBIN A1C Routine 09/26/2022 9:44 AM TREE GIRDLER ALBUMIN CREATININE RATIO, URINE Routine 09/26/2022 9:44 AM TREE GIRDLER DIABETES FOOT EXAM Routine 06/07/2017 LIPID PANEL After X-Ray 02/28/2017 11:33 PM CDT PSA SCREENING Routine 01/03/2017 from Last 3 Months or Most Recently Relevant to Health Maintenance Results * Albumin Creatinine Ratio, Urine (09/26/2022 9:44 AM TREE GIRDLER) Pathologist [facility] Creatinine ur 54.8 Not Estab. mg/dL [facility] - 01 Microalbumin, ur 7.0 Not Estab. ug/mL [facility] - 01 Microalbumin/cre at ratio 13 0 - 29 mg/g creat [facility] - 01 Comment: Normal: 0 - 29 Moderately increased: 30 - 300 Severely increased: >300 09/26/2022 9:44 AM TREE GIRDLER 09/26/2022 Narrative [facility] - 09/27/2022 8:14 AM TREE GIRDLER Performed at: [address] [place] [id number] Aircraft Systems Repairer: Imer Morgan PhD, Phone: [phone] Wilner Braxton MD LAB URINE ORDERABLES Fin al Result Performing Organization Address [facility] de Phone Number [facility] - * (ABNORMAL) Hemoglobin A1c (09/26/2022 9:44 AM TREE GIRDLER) Pathologist [facility] Hgb A1C 6.8(H) 4.8 - 5.6 % [facility] - 01 Comment: Prediabetes: 5.7 - 6.4 Diabetes: >6.4 Glycemic control for adults with diabetes: <7.0 09/26/2022 9:44 AM TREE GIRDLER 09/26/2022 Narrative [facility] - 09/27/2022 7:09 AM TREE GIRDLER Performed at: [address] [id number] Aircraft Systems Repairer: Imer Morgan PhD, Phone: [phone] Wilner Braxton MD LAB BLOOD ORDERABLES Fin al Result Performing Organization Address [facility] de Phone Number [facility] - * (ABNORMAL) Basic metabolic panel (09/26/2022 9:44 AM TREE GIRDLER) [facility] Glucose 145(H) 70 - 99 mg/dL [facility] [...] mg/dL [facility] - 01 09/26/2022 9:44 AM TREE GIRDLER 09/26/2022 Narrative [facility] - 09/27/2022 7:09 AM TREE GIRDLER Performed at: - [address] [id number] Aircraft Systems Repairer: Imer Morgan PhD, Phone: [phone] Wilner Braxton MD LAB BLOOD ORDERABLES Fin al Result [facility] - 01 * DIABETES FOOT EXAM (06/07/2017) [facility] Diabetic Foot Exam Normal Historical Provider HEALTH MAINTENANCE Final Result * Lipid panel (02/28/2017 11:33 PM CDT) [facility] Cholesterol 89 30 - 200 mg/dL [facility] Comment: Interpretive Data Desirable: <200 mg/dL Borderline [...] Ashlyn reed Result [facility] Department [place] [address] * PSA SCREENING (01/03/2017) PSA Normal us Historical Provider HEALTH MAINTENANCE Final Result from Last 3 Months or Most Recently Relevant to Health Maintenance Insurance [facility] MEDICARE ADVANTAGE R HMO REF Member Subscriber Plan / Payer ( fective 2021-) Name:Mark Patel Relation to Subscriber:Self Name:Mark Patel Payer ID:[id number] ([facility]) Type:UHC MEDICARE Address: [place] [id number] UHC MEDICARE ADVANTAGE [facility] MEDICARE Address: [facility] [address] [place] [address] Care Teams Densitometrist Relationship Specialty Start Date End Date Tr Zaman MD [address] [place] [address] [place] [address] PCP - General Family Practice 08/24/24 Wilner Braxton MD [address] [place] [address] [place] [address] 01/23/17
--- OUTSIDE RECORDS SUMMARY | 2025-02-18 13:29 | XMS_ITS | Encounter Summary ---
Author Organization [facility] Address [address] [place] [address] Phone Care Team Providers Care Financial Analysis Advisor Name Role Phone Wilner Hare MD Primary Care Provider + Wilner Hare MD Unavailable [phone] Tr Zaman MD Primary Care Provider [phone] Encounter Details Date Type Department Care Team [...] on file Legal Sex Male 12:07 AM UTILITY BILL COLLECTION CLERK Gender Identity Male 10/04/2020 1:22 PM UTILITY BILL COLLECTION CLERK Sexual Orientation Something else 10/04/2020 1: 22 PM UTILITY BILL COLLECTION CLERK documented as of this encounter Plan of [...] COVID: Suspected 08/24/2024 08/24/2024 08/24/2024 4:50 PM UTILITY BILL COLLECTION CLERK documented as of this encounter Care Teams Financial Analysis Advisor Relationship Specialty Start Date End Date Wilner Hare MD [address] [place] [address] [place] [address] PCP - General 01/29/17 08/23/24 Tr Zaman MD [address] [place] [address] [place] [address] PCP - General Family Practice 08/24/24 Wilner Hare MD [address] [place] [address] [place] [address] 01/23/17 documented as of this encounter
--- OUTSIDE RECORDS SUMMARY | 2025-02-18 13:29 | XMS_ITS | Referral Summary ---
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 [...] on file Legal Sex Male 12:07 AM MOLD BLOWER Gender Identity Male 10/04/2020 1:22 PM MOLD BLOWER Sexual Orientation Something else 10/04/2020 1: 22 PM MOLD BLOWER Last Filed Vital Signs Vital Sign Reading Time Taken Comments Blood Pressure 122/80 08/24/2024 4:32 PM MOLD BLOWER Pulse 67 08/24/2024 4:32 PM MOLD BLOWER Temperature 36.7 C (98 F) 08/24/2024 4:32 PM MOLD BLOWER Respiratory Rate 20 08/24/2024 4:32 PM MOLD BLOWER Oxygen Saturation 97% 08/24/2024 4:32 PM MOLD BLOWER Inhaled Oxygen Concentration - - Weight 76.7 kg (169 lb) 08/24/2024 4:32 PM MOLD BLOWER Height 172.7 cm (5' 8 ) 12/04/2023 9:23 AM MOLD BLOWER Body Mass Index 25.7 12/04/2023 9:23 AM MOLD BLOWER Plan of Treatment Not on file Procedures Procedure Name Priority Date/Time Associated Diagnosis Comments BASIC METABOLIC PANEL Routine 09/26/2022 9:44 AM MOLD BLOWER HEMOGLOBIN A1C Routine 09/26/2022 9:44 AM MOLD BLOWER ALBUMIN CREATININE RATIO, URINE Routine 09/26/2022 9:44 AM MOLD BLOWER HM DIABETES FOOT EXAM Routine 06/07/2017 LIPID PANEL After X-Ray 02/28/2017 11:33 PM CDT PSA SCREENING Routine 01/03/2017 from Last 3 Months or Most Recently Relevant to Health Maintenance Results * Albumin Creatinine Ratio, Urine (09/26/2022 9:44 AM MOLD BLOWER) Creatinine ur 54.8 Not Estab. mg/dL [facility] - 01 Microalbumin, ur 7.0 Not Estab. ug/mL [facility] - 01 Microalbumin/cre at ratio 13 0 - 29 mg/g creat [facility] - 01 Comment: Normal: 0 - 29 Moderately increased: 30 - 300 Severely increased: >300 09/26/2022 9:44 AM MOLD BLOWER 09/26/2022 Narrative [facility] - 09/27/2022 8:14 AM MOLD BLOWER Performed at: [address] [place] [id number] Swat Team Member: Imer Morgan PhD, Phone: [phone] Wilner Braxton MD LAB URINE ORDERABLES Fin al Result Performing Organization Address [facility] de Phone Number [facility] - 01 * (ABNORMAL) Hemoglobin A1c (09/26/2022 9:44 AM MOLD BLOWER) Hgb A1C 6.8(H) 4.8 - 5.6 % [facility] - 01 Comment: Prediabetes: 5.7 - 6.4 Diabetes: >6.4 Glycemic control for adults with diabetes: <7.0 09/26/2022 9:44 AM MOLD BLOWER 09/26/2022 Narrative [facility] - 09/27/2022 7:09 AM MOLD BLOWER Performed at: [address] [place] [id number] Swat Team Member: Imer Morgan PhD, Phone: [phone] Wilner Braxton MD LAB BLOOD ORDERABLES Fin al Result Performing Organization Address [facility] Co de Phone Number [facility] - 01 * (ABNORMAL) Basic metabolic panel (09/26/2022 9:44 AM MOLD BLOWER) Pathologist [facility] Glucose 145(H) 70 - 99 mg/dL [facility] [...] mg/dL [facility] - 01 09/26/2022 9:44 AM MOLD BLOWER 09/26/2022 Narrative [facility] - 09/27/2022 7:09 AM MOLD BLOWER Performed at: - [facility] [address] [id number] Swat Team Member: Imer Morgan PhD, Phone: [phone] Wilner Braxton MD LAB BLOOD ORDERABLES Fin al Result [facility] - 01 * DIABETES FOOT EXAM (06/07/2017) [facility] Diabetic Foot Exam Normal Historical Provider HEALTH MAINTENANCE Final Result * Lipid panel (02/28/2017 11:33 PM CDT) Pathologist [facility] Cholesterol 89 30 - 200 mg/dL MOUNIKA [...] 2015. Triglycerides 49 0 - 150 mg/dL [facility] Comment: Interpretive Data Desirable: < 150 mg/dL Borderline High: 150 - 199 mg/dL High: 200 - 499 mg/dL Very High: > or = 499 mg/dL Literature Reference: See Cholesterol Current interpretive data was last revised on 2015. HDL 40 >=40 mg/dL [facility] Comment: Interpretive Data Less than 40 mg/dL - low; A major risk factor for heart disease. Greater than or equal to 60 mg/dL - High; considered protective of heart disease. Literature Reference: See Cholesterol Current interpretive data was last revised on 2015. LDL, calculated 39 10 - 129 mg/dL [facility] Comment: Interpretive Data Optimal: < 100 mg/dL Near Optimal: 100 - 129 mg/dL Borderline High: 130 - 159 mg/dL High: 160 - 189 mg/dL Very high: > or = 190 mg/dL Literature Reference: See Cholesterol Current interpretive data was last revised on 2015. Non-HDL Cholesterol 49 mg/dL [facility] Comment: Interpretive Data When triglycerides are >200 mg/dL, non-HDL C is a secondary target of therapy, with a goal 30 mg/dL higher than the identified LDL-C goal. Reference: See Cholesterol Reference. Current interpretive data was last revised 2015. Blood specimen (specimen) 02/28/2017 11:33 PM CDT 03/01/2017 12:43 AM CDT Sterling Hernandez MD LAB BLOOD ORDERABLES Ashlyn l Result [facility] One [facility] Department [place] [address] * PSA SCREENING (01/03/2017) Pathologist [facility] PSA Normal Historical Provider HEALTH MAINTENANCE Final Result from Last 3 Months or Most Recently Relevant to Health Maintenance [facility] MEDICARE ADVANTAGE [facility] MDCR HMO REF [facility] MEDICARE Address: [facility] [address] [place] [address] [facility] MEDICARE ADVANTAGE Care Teams Avionics Electronics Technician Relationship Specialty Start Date End Date Tr Zaman MD [facility] [place] [address] PCP - General Family Practice 08/24/24 Wilner Braxton MD [address] [place] [address] [place] [address] 01/23/17
--- OUTSIDE RECORDS SUMMARY | 2025-02-18 13:29 | XMS_ITS | Encounter Summary ---
Author Organization [facility] Address [address] [place] [address] Phone Care Team Providers Care Haircutter Name Role Phone Wilner Hare MD Primary Care Provider + Wilner Hare MD Unavailable [phone] Tr Zaman MD Primary Care Provider [phone] Encounter Details Date Type Department Care Team [...] on file Legal Sex Male 12:07 AM CLOCK ASSEMBLER Gender Identity Male 10/04/2020 1:22 PM CLOCK ASSEMBLER Sexual Orientation Something else 10/04/2020 1: 22 PM CLOCK ASSEMBLER documented as of this encounter Plan of [...] COVID: Suspected 08/24/2024 08/24/2024 08/24/2024 4:50 PM CLOCK ASSEMBLER documented as of this encounter Care Teams Haircutter Relationship Specialty Start Date End Date Wilner Hare MD [address] [place] [address] [place] [address] PCP - General 01/29/17 08/23/24 Tr Zaman MD [address] [place] [address] [place] [address] PCP - General Family Practice 08/24/24 Wilner Hare MD [address] [place] [address] [place] [address] 01/23/17 documented as of this encounter
--- OUTSIDE RECORDS SUMMARY | 2025-02-18 13:29 | XMS_ITS | Encounter Summary ---
Author Organization [facility] Address [address] [place] [address] Phone Care Team Providers Care Procurement Manager Name Role Phone Wilner Hare MD Primary Care Provider + Wilner Hare MD Unavailable [phone] Tr Zaman MD Primary Care Provider [phone] Encounter Details Date Type Department Care Team [...] on file Legal Sex Male 12:07 AM MANAGER DATABASE Gender Identity Male 10/04/2020 1:22 PM MANAGER DATABASE Sexual Orientation Something else 10/04/2020 1: 22 PM MANAGER DATABASE documented as of this encounter Plan of [...] COVID: Suspected 08/24/2024 08/24/2024 08/24/2024 4:50 PM MANAGER DATABASE documented as of this encounter Care Teams Procurement Manager Relationship Specialty Start Date End Date Wilner Hare MD [address] [place] [address] [place] [address] PCP - General 01/29/17 08/23/24 Tr Zaman MD [address] [place] [address] [place] [address] PCP - General Family Practice 08/24/24 Wilner Hare MD [address] [place] [address] [place] [address] 01/23/17 documented as of this encounter
--- NOTE | 2025-02-18 13:41 | ECG_ITS ---
Test Date: 2025-02-18 13:47:55 Measurements Intervals Yarnell Rate: 70 P: 58 NE: 157 QRS: -60 QRSD: 126 T: 60 QT: 387 QTc: 419 Interpretive Statements SINUS RHYTHM WITH FREQUENT VENTRICULAR PREMATURE COMPLEXES POSSIBLE RIGHT VENTRICULAR CONDUCTION DELAY [RSR (QR) IN V1/V2] LEFT ANTERIOR FASCICULAR BLOCK [QRS AXIS <= -45, QR IN I, RS IN II] ABNORMAL ECG Compared to ECG 04/20/2024 19:36:16 Right bundle-branch block no longer present Electronically Signed On 02-19-2025 09:59:47 CDT by Willard Ricci M.D.
[2025-02-18 14:08] LABS: Basophils Absolute Auto 0.07 K/mm3 (0.00-0.10); Basophils Percent Auto 0.6 % (0.0-1.0); Eosinophils Absolute Auto 0.12 K/mm3 (0.02-0.50); Hematocrit 39.1 % (37.0-46.0); Hemoglobin 13.1 g/dL (12.4-15.3); Immature Granulocyte Absolute 0.04 K/mm3 (0.00-0.00); Immature Granulocyte Percent A 0.3 % (0.0-0.0); Lymphocytes Absolute Auto 1.05 K/mm3 (1.10-4.50); Lymphocytes Percent Auto 8.4 % (18.0-42.0); Mean Corpuscular HGB Conc 33.5 g/dL (32-36); Mean Corpuscular Hemoglobin 31.3 pg (27.0-31.0); Mean Corpuscular Volume 93.5 fL (78.0-102.0); Mean Platelet Volume 10.7 fl (8.7-11.0); Monocytes Absolute Auto 0.99 K/mm3 (0.10-0.90); Monocytes Percent Auto 7.9 % (2.0-11.0); Neutrophils Absolute Auto 10.28 K/mm3 (1.70-7.20); Neutrophils Percent Auto 81.8 % (50.0-70.0); Platelet Count Result 193 K/mm3 (150-420); Red Blood Count 4.18 M/mm3 (4.70-6.10); Red Cell Distribution Width 11.8 % (11.6-14.4); White Blood Count 12.6 K/mm3 (4.8-10.8)
--- NOTE | 2025-02-18 14:15 | PC.NURSE ---
ERP aware of elevated blood pressures.
--- OUTSIDE RECORDS SUMMARY | 2025-02-18 14:15 | XMS_ITS | Referral Summary ---
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 I would [...] on file Legal Sex Male 12:07 AM PROPULSION GENERATOR REPAIRER Gender Identity Male 10/04/2020 1:22 PM PROPULSION GENERATOR REPAIRER Sexual Orientation Something else 10/04/2020 1: 22 PM PROPULSION GENERATOR REPAIRER Last Filed Vital Signs Vital Sign Reading Time Taken Comments Blood Pressure 122/80 08/24/2024 4:32 PM PROPULSION GENERATOR REPAIRER Pulse 67 08/24/2024 4:32 PM PROPULSION GENERATOR REPAIRER Temperature 36.7 C (98 F) 08/24/2024 4:32 PM PROPULSION GENERATOR REPAIRER Respiratory Rate 20 08/24/2024 4:32 PM PROPULSION GENERATOR REPAIRER Oxygen Saturation 97% 08/24/2024 4:32 PM PROPULSION GENERATOR REPAIRER Inhaled Oxygen Concentration - - Weight 76.7 kg (169 lb) 08/24/2024 4:32 PM PROPULSION GENERATOR REPAIRER Height 172.7 cm (5' 8 ) 12/04/2023 9:23 AM PROPULSION GENERATOR REPAIRER Body Mass Index 25.7 12/04/2023 9:23 AM PROPULSION GENERATOR REPAIRER Plan of Treatment Not on file Procedures Procedure Name Priority Date/Time Associated Diagnosis Comments BASIC METABOLIC PANEL Routine 09/26/2022 9:44 AM PROPULSION GENERATOR REPAIRER HEMOGLOBIN A1C Routine 09/26/2022 9:44 AM PROPULSION GENERATOR REPAIRER ALBUMIN CREATININE RATIO, URINE Routine 09/26/2022 9:44 AM PROPULSION GENERATOR REPAIRER HM DIABETES FOOT EXAM Routine 06/07/2017 LIPID PANEL After X-Ray 02/28/2017 11:33 PM CDT PSA SCREENING Routine 01/03/2017 from Last 3 Months or Most Recently Relevant to Health Maintenance Results * Albumin Creatinine Ratio, Urine (09/26/2022 9:44 AM PROPULSION GENERATOR REPAIRER) Creatinine ur 54.8 Not Estab. mg/dL [facility] - 01 Microalbumin, ur 7.0 Not Estab. ug/mL [facility] - 01 Microalbumin/cre at ratio 13 0 - 29 mg/g creat [facility] - 01 Comment: Normal: 0 - 29 Moderately increased: 30 - 300 Severely increased: >300 09/26/2022 9:44 AM PROPULSION GENERATOR REPAIRER 09/26/2022 Narrative [facility] - 09/27/2022 8:14 AM PROPULSION GENERATOR REPAIRER Performed at: [address] [place] [id number] Slag Expander: Imer Morgan PhD, Phone: [phone] Wilner Braxton MD LAB URINE ORDERABLES Fin al Result Performing Organization Address [facility] de Phone Number [facility] - 01 * (ABNORMAL) Hemoglobin A1c (09/26/2022 9:44 AM PROPULSION GENERATOR REPAIRER) Hgb A1C 6.8(H) 4.8 - 5.6 % [facility] - 01 Comment: Prediabetes: 5.7 - 6.4 Diabetes: >6.4 Glycemic control for adults with diabetes: <7.0 09/26/2022 9:44 AM PROPULSION GENERATOR REPAIRER 09/26/2022 Narrative [facility] - 09/27/2022 7:09 AM PROPULSION GENERATOR REPAIRER Performed at: [address] [place] [id number] Slag Expander: Imer Morgan PhD, Phone: [phone] Wilner Braxton MD LAB BLOOD ORDERABLES Fin al Result Performing Organization Address [facility] Co de Phone Number [facility] - 01 * (ABNORMAL) Basic metabolic panel (09/26/2022 9:44 AM PROPULSION GENERATOR REPAIRER) Pathologist [facility] Glucose 145(H) 70 - 99 mg/dL [facility] [...] mg/dL [facility] - 01 09/26/2022 9:44 AM PROPULSION GENERATOR REPAIRER 09/26/2022 Narrative [facility] - 09/27/2022 7:09 AM PROPULSION GENERATOR REPAIRER Performed at: - [facility] [address] [id number] Slag Expander: Imer Morgan PhD, Phone: [phone] Wilner Braxton MD LAB BLOOD ORDERABLES Fin al Result [facility] - 01 * DIABETES FOOT EXAM (06/07/2017) [facility] Diabetic Foot Exam Normal Historical Provider HEALTH MAINTENANCE Final Result * Lipid panel (02/28/2017 11:33 PM CDT) Pathologist [facility] Cholesterol 89 30 - 200 mg/dL MOUNIKA [...] 2015. Triglycerides 49 0 - 150 mg/dL [facility] Comment: Interpretive Data Desirable: < 150 mg/dL Borderline High: 150 - 199 mg/dL High: 200 - 499 mg/dL Very High: > or = 499 mg/dL Literature Reference: See Cholesterol Current interpretive data was last revised on 2015. HDL 40 >=40 mg/dL [facility] Comment: Interpretive Data Less than 40 mg/dL - low; A major risk factor for heart disease. Greater than or equal to 60 mg/dL - High; considered protective of heart disease. Literature Reference: See Cholesterol Current interpretive data was last revised on 2015. LDL, calculated 39 10 - 129 mg/dL [facility] Comment: Interpretive Data Optimal: < 100 mg/dL Near Optimal: 100 - 129 mg/dL Borderline High: 130 - 159 mg/dL High: 160 - 189 mg/dL Very high: > or = 190 mg/dL Literature Reference: See Cholesterol Current interpretive data was last revised on 2015. Non-HDL Cholesterol 49 mg/dL [facility] Comment: Interpretive Data When triglycerides are >200 mg/dL, non-HDL C is a secondary target of therapy, with a goal 30 mg/dL higher than the identified LDL-C goal. Reference: See Cholesterol Reference. Current interpretive data was last revised 2015. Blood specimen (specimen) 02/28/2017 11:33 PM CDT 03/01/2017 12:43 AM CDT Sterling Hernandez MD LAB BLOOD ORDERABLES Ashlyn l Result [facility] One [facility] [place] [address] * PSA SCREENING (01/03/2017) Pathologist [facility] PSA Normal Historical Provider HEALTH MAINTENANCE Final Result from Last 3 Months or Most Recently Relevant to Health Maintenance [facility] MEDICARE ADVANTAGE [facility] MDCR HMO [facility] Address: [facility] [address] [place] [address] [facility] MEDICARE ADVANTAGE Care Teams Chucker Relationship Specialty Start Date End Date Tr Zaman MD [facility] [place] [address] PCP - General Family Practice 08/24/24 Wilner Braxton MD [address] [place] [place] [address] [place] [address] 01/23/17
--- OUTSIDE RECORDS SUMMARY | 2025-02-18 14:15 | XMS_ITS | Clinical Summary ---
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 I would [...] OA - Oste oarthritis of knee; Comments: [facility] 01/03/2017 - Benign prostatic hyperplasia BPH - Benign prostatic hypertrophy; Comments: [facility] 01/03/2017 - Decreased hearing Decreased hear ing; Comments: [facility] 01/03/2017 -; Laterality: left Cataract Cataract; Commen ts: [facility] 01/03/2017 -; Laterality: bilateral Hypertension Hyperlipidemia Diabetes [...] on file Legal Sex Male 12:07 AM PHARMACEUTICAL SALES REPRESENTATIVE Gender Identity Male 10/04/2020 1:22 PM PHARMACEUTICAL SALES REPRESENTATIVE Sexual Orientation Something else 10/04/2020 1: 22 PM PHARMACEUTICAL SALES REPRESENTATIVE Obstetrics History Last Filed Vital Signs Vital Sign Reading Time Taken Comments Blood Pressure 122/80 08/24/2024 4:32 PM PHARMACEUTICAL SALES REPRESENTATIVE Pulse 67 08/24/2024 4:32 PM PHARMACEUTICAL SALES REPRESENTATIVE Temperature 36.7 C (98 F) 08/24/2024 4:32 PM PHARMACEUTICAL SALES REPRESENTATIVE Respiratory Rate 20 08/24/2024 4:32 PM PHARMACEUTICAL SALES REPRESENTATIVE Oxygen Saturation 97% 08/24/2024 4:32 PM PHARMACEUTICAL SALES REPRESENTATIVE Inhaled Oxygen Concentration - - Weight 76.7 kg (169 lb) 08/24/2024 4:32 PM PHARMACEUTICAL SALES REPRESENTATIVE Height 172.7 cm (5' 8 ) 12/04/2023 9:23 AM PHARMACEUTICAL SALES REPRESENTATIVE Body Mass Index 25.7 12/04/2023 9:23 AM PHARMACEUTICAL SALES REPRESENTATIVE Plan of Treatment Health Maintenance Due Date [...] BASIC METABOLIC PANEL Routine 09/26/2022 9:44 AM PHARMACEUTICAL SALES REPRESENTATIVE HEMOGLOBIN A1C Routine 09/26/2022 9:44 AM PHARMACEUTICAL SALES REPRESENTATIVE ALBUMIN CREATININE RATIO, URINE Routine 09/26/2022 9:44 AM PHARMACEUTICAL SALES REPRESENTATIVE DIABETES FOOT EXAM Routine 06/07/2017 LIPID PANEL After X-Ray 02/28/2017 11:33 PM CDT PSA SCREENING Routine 01/03/2017 from Last 3 Months or Most Recently Relevant to Health Maintenance Results * Albumin Creatinine Ratio, Urine (09/26/2022 9:44 AM PHARMACEUTICAL SALES REPRESENTATIVE) Pathologist [facility] Creatinine ur 54.8 Not Estab. mg/dL [facility] - 01 Microalbumin, ur 7.0 Not Estab. ug/mL [facility] - 01 Microalbumin/cre at ratio 13 0 - 29 mg/g creat [facility] - 01 Comment: Normal: 0 - 29 Moderately increased: 30 - 300 Severely increased: >300 09/26/2022 9:44 AM PHARMACEUTICAL SALES REPRESENTATIVE 09/26/2022 Narrative [facility] - 09/27/2022 8:14 AM PHARMACEUTICAL SALES REPRESENTATIVE Performed at: [address] [place] [id number] Tube Sizer Operator: Imer Morgan PhD, Phone: [phone] Wilner Braxton MD LAB URINE ORDERABLES Fin al Result Performing Organization Address [facility] de [facility] - * (ABNORMAL) Hemoglobin A1c (09/26/2022 9:44 AM PHARMACEUTICAL SALES REPRESENTATIVE) Pathologist [facility] Hgb A1C 6.8(H) 4.8 - 5.6 % [facility] - 01 Comment: Prediabetes: 5.7 - 6.4 Diabetes: >6.4 Glycemic control for adults with diabetes: <7.0 09/26/2022 9:44 AM PHARMACEUTICAL SALES REPRESENTATIVE 09/26/2022 Narrative [facility] - 09/27/2022 7:09 AM PHARMACEUTICAL SALES REPRESENTATIVE Performed at: [address] [id number] Tube Sizer Operator: Imer Morgan PhD, Phone: [phone] Wilner Braxton MD LAB BLOOD ORDERABLES Fin al Result Performing Organization Address [facility] de Phone Number [facility] - * (ABNORMAL) Basic metabolic panel (09/26/2022 9:44 AM PHARMACEUTICAL SALES REPRESENTATIVE) [facility] Glucose 145(H) 70 - 99 mg/dL [facility] [...] mg/dL [facility] - 01 09/26/2022 9:44 AM PHARMACEUTICAL SALES REPRESENTATIVE 09/26/2022 Narrative [facility] - 09/27/2022 7:09 AM PHARMACEUTICAL SALES REPRESENTATIVE Performed at: - [address] [id number] Tube Sizer Operator: Imer Morgan PhD, Phone: [phone] Wilner Braxton MD LAB BLOOD ORDERABLES Fin al Result [facility] - 01 * DIABETES FOOT EXAM (06/07/2017) [facility] Diabetic Foot Exam Normal Historical Provider HEALTH MAINTENANCE Final Result * Lipid panel (02/28/2017 11:33 PM CDT) [facility] Cholesterol 89 30 - 200 mg/dL [facility] Comment: Interpretive Data Desirable: <200 mg/dL Borderline [...] revised on 2015. HDL 40 >=40 mg/dL [facility] Comment: Interpretive Data Less than 40 mg/dL - low; A major risk factor for heart disease. Greater than or equal to 60 mg/dL - High; considered protective of heart disease. Literature Reference: See Cholesterol Current interpretive data was last revised on 2015. LDL, calculated 39 10 - 129 mg/dL [facility] Comment: Interpretive Data Optimal: < 100 mg/dL Near Optimal: 100 - 129 mg/dL Borderline High: 130 - 159 mg/dL High: 160 - 189 mg/dL Very high: > or = 190 mg/dL Literature Reference: See Cholesterol Current interpretive data was last revised on 2015. Non-HDL Cholesterol 49 mg/dL [facility] Comment: Interpretive Data When triglycerides are >200 mg/dL, non-HDL C is a secondary target of therapy, with a goal 30 mg/dL higher than the identified LDL-C goal. Reference: See Cholesterol Reference. Current interpretive data was last revised 2015. Blood specimen (specimen) 02/28/2017 11:33 PM CDT 03/01/2017 12:43 AM CDT us Sterling Hernandez MD LAB BLOOD ORDERABLES Ashlyn reed Result [facility] One [facility] [place] [address] * PSA SCREENING (01/03/2017) PSA Normal us Historical Provider HEALTH MAINTENANCE Final Result from Last 3 Months or Most Recently Relevant to Health Maintenance Insurance [facility] MEDICARE ADVANTAGE R HMO REF Member Subscriber Plan / Payer ( fective 2021-) Name:Mark Patel Relation to Subscriber:Self Name:Mark Patel Payer ID:[id number] ([facility]) Type:UHC MEDICARE Address: [place] [id number] UHC MEDICARE ADVANTAGE MED[facility] CENTER MEDICARE Address: [facility] [address] [place] [address] Care Teams Home School Coordinator Relationship Specialty Start Date End Date Tr Zaman MD [address] [place] [address] [place] [address] PCP - General Family Practice 08/24/24 Wilner Braxton MD [address] [place] [address] [place] [address] 01/23/17
--- OUTSIDE RECORDS SUMMARY | 2025-02-18 14:15 | XMS_ITS | Encounter Summary ---
Author Organization [facility] Address [address] [place] [address] Phone Care Team Providers Care Military Science Teacher Name Role Phone Wilner Hare MD Primary Care Provider + Wilner Hare MD Unavailable [phone] Tr Zaman MD Primary Care Provider [phone] Encounter Details Date Type Department Care Team [...] on file Legal Sex Male 12:07 AM ADDRESSER Gender Identity Male 10/04/2020 1:22 PM ADDRESSER Sexual Orientation Something else 10/04/2020 1: 22 PM ADDRESSER documented as of this encounter Plan of [...] COVID: Suspected 08/24/2024 08/24/2024 08/24/2024 4:50 PM ADDRESSER documented as of this encounter Care Teams Military Science Teacher Relationship Specialty Start Date End Date Wilner Hare MD [address] [place] [address] [place] [address] PCP - General 01/29/17 08/23/24 Tr Zaman MD [address] [place] [address] [place] [address] PCP - General Family Practice 08/24/24 Wilner Hare MD [address] [place] [address] [place] [address] 01/23/17 documented as of this encounter
--- OUTSIDE RECORDS SUMMARY | 2025-02-18 14:15 | XMS_ITS | Encounter Summary ---
Author Organization [facility] Address [address] [place] [address] Phone Care Team Providers Care Strategic Manager Name Role Phone Wilner Hare MD Primary Care Provider + Wilner Hare MD Unavailable [phone] Tr Zaman MD Primary Care Provider [phone] Encounter Details Date Type Department Care Team [...] on file Legal Sex Male 12:07 AM DIANETIC COUNSELOR Gender Identity Male 10/04/2020 1:22 PM DIANETIC COUNSELOR Sexual Orientation Something else 10/04/2020 1: 22 PM DIANETIC COUNSELOR documented as of this encounter Plan of [...] COVID: Suspected 08/24/2024 08/24/2024 08/24/2024 4:50 PM DIANETIC COUNSELOR documented as of this encounter Care Teams Strategic Manager Relationship Specialty Start Date End Date iWlner Hare MD [address] [place] [address] [place] [address] PCP - General 01/29/17 08/23/24 Tr Zaman MD [address] [place] [address] [place] [address] PCP - General Family Practice 08/24/24 Wilner Hare MD [address] [place] [address] [place] [address] 01/23/17 documented as of this encounter
--- OUTSIDE RECORDS SUMMARY | 2025-02-18 14:15 | XMS_ITS | Encounter Summary ---
Author Organization [facility] Address [address] [place] [address] Phone Care Team Providers Care Director Of Medicare Name Role Phone Wilner Hare MD Primary Care Provider + Wilner Hare MD Unavailable [phone] Tr Zaman MD Primary Care Provider [phone] Encounter Details Date Type Department Care Team [...] on file Legal Sex Male 12:07 AM WILDLIFE BIOLOGY TECHNICIAN Gender Identity Male 10/04/2020 1:22 PM WILDLIFE BIOLOGY TECHNICIAN Sexual Orientation Something else 10/04/2020 1: 22 PM WILDLIFE BIOLOGY TECHNICIAN documented as of this encounter Plan of [...] COVID: Suspected 08/24/2024 08/24/2024 08/24/2024 4:50 PM WILDLIFE BIOLOGY TECHNICIAN documented as of this encounter Care Teams Director Of Medicare Relationship Specialty Start Date End Date Wilner Hare MD [address] [place] [address] [place] [address] PCP - General 01/29/17 08/23/24 Tr Zaman MD [address] [place] [address] [place] [address] PCP - General Family Practice 08/24/24 Wilner Hare MD [address] [place] [address] [place] [address] 01/23/17 documented as of this encounter
[2025-02-18 14:19] LABS: Lactic Acid Reflex 0.8 mmol/L (0.4-2.0)
[2025-02-18 14:20] LABS: Alanine Aminotransferase 18 U/L (6-50); Albumin Level 4.1 g/dL (3.5-5.1); Alkaline Phosphatase 44 U/L (38-126); Anion Gap 4 mmol/L (4-12); Aspartate Amino Transferase 24 U/L (17-59); Bilirubin,Total 0.9 mg/dL (0.2-1.3); Blood Urea Nitrogen 15 mg/dL (9-20); Calcium 8.9 mg/dL (8.4-10.2); Carbon Dioxide 29 mmol/L (22-30); Chloride 102 mmol/L (98-107); Estimated CRCL calculation 68 ml/min; Estimated Glomerular Filt Rate > 60; Glucose 145 mg/dL (65-110); Lipase 74 U/L (23-300); Osmolality Calculated 283 mOsm/kg (285-295); Potassium 4.1 mmol/L (3.4-5.0); Sodium 135 mmol/L (137-145); Total Protein 7.2 g/dL (6.3-8.2)
[2025-02-18 14:28] LABS: D Dimer 0.48 mg/L (0.19-0.50); Partial Thromboplastin Time 24.5 Sec (23.9-30.70); Prothrombin Time 10.9 Seconds (9.50-12.1)
[2025-02-18 14:32] LABS: Troponin I < 0.012 ng/mL (0.000-0.034)
[2025-02-18 14:56] LABS: Add Urine Microscopic? YES; Appearance Urine Clear (Clear); Bilirubin Urine Negative (Negative); Blood Urine Negative (Negative); Color Urine Light Yellow (Yellow); Glucose Urine UA Negative (Negative); Ketones Urine Negative (Negative); Leukocyte Esterase Ur 1+ LEU/UL (Negative); Nitrate Urine Negative (Negative); Protein Urine Negative (Negative)
[2025-02-18 15:07] LABS: Bacteria Urine 2+ /hpf; RBC Urine 0-2 /hpf (0-2); Squamous Epithelial Cell Urine Rare /hpf (Few)
--- NOTE | 2025-02-18 15:44 | ED_ITS ---
HPI - Dizziness General Chief Complaint: Dizziness Stated Complaint: dizziness, light headed x1 week Time Seen by Provider: 02/18/25 13:27 Source: patient and family Mode of arrival: ambulatory Limitations: no limitations History of Present Illness HPI Narrative: this is a 89-year-old male with history of CAD hyperlipidemia GERD presents with some dizziness and abdominal discomfort with a dominant fullness with no chest pain no shortness of breath pain radiates to his right upper quadrant does have some nausea with currently no vomiting no diarrhea constipation no fever chills. MD elicited complaint: dizziness Onset (ago): hour(s) Related Data Home Medications Medication Instructions Recorded Confirmed Last Taken Type aspirin 325 mg tablet 325 mg PO HS 05/20/20 02/18/25 02/17/25 History cholecalciferol (vitamin D3) 25 25 mcg PO DAILY 09/09/20 02/18/25 02/18/25 History mcg (1,000 unit) tablet Allergies Allergy/AdvReac Type Severity Reaction Status Date / Time No Known Allergies Allergy Verified 02/18/25 13:25 Review of Systems 2 Review of Systems: All systems reviewed & are unremarkable except as noted in HPI and below PMFSH Past Medical History Medical History (Updated 02/19/25 @ 00:01 by Jeannette Bailey) Type 2 diabetes mellitus Urinary retention Osteoarthritis Adenomatous colon polyp (~05/2015) Gastroesophageal reflux disease Coronary artery disease Poorly documented in the EMR, patient apparently has nonocclusive coronary disease however he cannot provide me with any details regarding this. Carotid stenosis Status post bilateral carotid endarterectomy. Hypertension Hyperlipidemia Surgical History Surgical History History of bilateral cataract extraction History of bilateral carotid endarterectomy (~2016) Family History Family History Sibling Diabetes mellitus Hypertension Social History Social History Social History: Surrogate medical decision maker: Deb Patel, spouse. Code status: Full code. Smoking packs per day: 1 Smoking cigarettes per day: 20.0 Years smoked: 15 Smoking pack-years: 15.00 Smoking status: Former smoker Tobacco type: cigarettes Smoking end date: 10/07/69 Alcohol intake: current Drinks per week: 7 Substance use: never Substance use type: does not use Do You Feel Safe in your Home?: Yes Lack of Transportation: No Lack of Food: Never True Current Housing: I Have Housing Concerned About Future Housing: No Difficulty Paying Gas/Electric Bills: No Difficulty Paying for Meds: No Currently Unemployed: No Education: High School Diploma/GED Difficulty w/ Childcare or Family Care: No Living arrangements: with family Additional living arrangements comments: Lives in [place] with his . 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 Spiritual care concerns: No Exam 2 Const: General: no acute distress and ill appearing Nutritional Appearance: well nourished Limitations: no limitations HENMT: Head: normal to inspection Eyes: Conjunctivae: conjunctivae normal Neck: Neck: normal visual inspection Chest: Chest palpation & inspection: normal inspection of the chest Resp: Effort & Inspection: normal respiratory effort Auscultation: clear to auscultation bilaterally Cardio: Rate: regular rate Rhythm: regular rhythm GI: GI Palp: Yes Soft to palpation and Yes Tenderness to palpation present (GI) ( Right upper quadrant tenderness with palpation) : General: Yes bladder normal to palpation Back/Spine/Pelvis: Back: no CVA tenderness Skin: General skin exam: normal color Rashes: no rashes Extrem: General: normal to inspection and no clubbing, cyanosis or edema Course Course Emergency Course: patient with abdominal pain and fullness had CT scan of the abdomen which shows acute cholecystitis with a white blood cell count 12.6 having discomfort and administered 4mg IV morphine for pain. Troponins negative with a blood glucose of 145. Patient has been having abdominal fullness over the last couple of days and developed dizziness today. Patient had a CT scan of the brain which shows no acute abnormalities, EKG shows normal sinus with some PVCs. Vital Signs Vital signs: Vital Signs Temperature 36.8 C 02/18/25 13:24 Pulse Rate 66 02/18/25 13:24 Respiratory Rate 16 02/18/25 13:24 Blood Pressure 172/77 H 02/18/25 13:24 Pulse Oximetry 98 02/18/25 13:24 Oxygen Delivery Room Air 02/18/25 13:24 Temperature 36.8 C 02/18/25 18:46 Pulse Rate 69 02/18/25 18:46 Respiratory Rate 17 02/18/25 18:46 Blood Pressure 162/59 H 02/18/25 18:46 Pulse Oximetry 95 02/18/25 18:46 Oxygen Delivery Room Air 02/18/25 18:46 MDM - Dizziness Lab Data 02/18/25 14:05 02/18/25 14:05 Labs: Lab Results 02/18/25 02/18/25 02/18/25 Range/Units 13:41 14:05 19:35 WBC 12.6 H (4.8-10.8) K/mm3 RBC 4.18 L (4.70-6.10) M/mm3 Hgb 13.1 (12.4-15.3) g/dL Hct 39.1 (37.0-46.0) % MCV 93.5 (78.0-102.0) fL MCH 31.3 H (27.0-31.0) pg MCHC 33.5 (32-36) g/dL RDW 11.8 (11.6-14.4) % Plt Count 193 (150-420) K/mm3 MPV 10.7 (8.7-11.0) fl Immature Gran % (Auto) 0.3 H (0.0-0.0) % Neut % (Auto) 81.8 H (50.0-70.0) % Lymph % (Auto) 8.4 L (18.0-42.0) % Mcleod % (Auto) 7.9 (2.0-11.0) % Eos % (Auto) 1.0 (1.0-6.0) % Baso % (Auto) 0.6 (0.0-1.0) % Lymph # (Auto) 1.05 L (1.10-4.50) K/mm3 Mcleod # (Auto) 0.99 H (0.10-0.90) K/mm3 Eos # (Auto) 0.12 (0.02-0.50) K/mm3 Baso # (Auto) 0.07 (0.00-0.10) K/mm3 Abs Immat Gran (auto) 0.04 H (0.00-0.00) K/mm3 Absolute Neuts (auto) 10.28 H (1.70-7.20) K/mm3 Absolute Nucleated RBC 0.00 (0.00-0.00) K/mm3 Nucleated RBC % 0.0 (0-0.0) % PT 10.9 (9.50-12.1) Seconds INR 1.0 APTT 24.5 (23.9-30.70) Sec D-Dimer 0.48 (0.19-0.50) mg/L Sodium 135 L (137-145) mmol/L Potassium 4.1 (3.4-5.0) mmol/L Chloride 102 (98-107) mmol/L Carbon Dioxide 29 (22-30) mmol/L Anion Gap 4 (4-12) mmol/L BUN 15 D (9-20) mg/dL Creatinine 0.63 L (0.7-1.3) mg/dL Estim Creat Clear Calc 68 ml/min Estimated GFR > 60 (59 - ) Glucose 145 H (65-110) mg/dL POC Capillary Glucose 172 H (65-105) mg/dl Calculated Osmolality 283 L (285-295) mOsm/kg Lactic Acid 0.8 (0.4-2.0) mmol/L Calcium 8.9 (8.4-10.2) mg/dL Total Bilirubin 0.9 (0.2-1.3) mg/dL AST 24 (17-59) U/L ALT 18 (6-50) U/L Alkaline Phosphatase 44 (38-126) U/L Troponin I < 0.012 (0.000-0.034) ng/mL Total Protein 7.2 (6.3-8.2) g/dL Albumin 4.1 (3.5-5.1) g/dL Lipase 74 (23-300) U/L Urine Color Light yellow (Yellow) Urine Appearance Clear (Clear) Urine pH 7.0 (5.0-8.0) Ur Specific [place] 1.020 (1.010-1.020) Urine Protein Negative (Negative) Urine Glucose (UA) Negative (Negative) Urine Ketones Negative (Negative) Ur Blood (Man) Negative (Negative) Urine Nitrate Negative (Negative) Urine Bilirubin Negative (Negative) Urine Urobilinogen 1.0 (0.2-1.0) mg/dL Leukocyte Esterase Rfl 1+ H (Negative) NORMA/UL Urine RBC 0-2 (0-2) /hpf Urine WBC 4-6 H (0-3) /hpf Ur Squamous Epith Cells Rare (Few) /hpf Urine Bacteria 2+ (None) /hpf Critical Care Time Critical Care Time Critical Care Time: No Discharge Plan Discharge Clinical Impression: Acute cholecystitis Patient Disposition: [facility] Condition: Stable Patient Language: Vietnamese Prescriptions: No Action cholecalciferol (vitamin D3) 25 mcg (1,000 unit) Tablet 25 mcg PO DAILY aspirin 325 mg Tablet 325 mg PO HS omeprazole 20 mg capsule,delayed release(DR/EC) See Rx Instructions .ROUTE .COMPLEX Qty: 90 4RF Dose Instruction: TAKE 1 CAPSULE BY MOUTH EVERY DAY Rx Instructions: TAKE 1 CAPSULE BY MOUTH EVERY DAY metformin 500 mg tablet extended release 24 hr See Rx Instructions .ROUTE .COMPLEX Qty: 100 2RF Dose Instruction: TAKE 1 TABLET BY MOUTH DAILY Rx Instructions: TAKE 1 TABLET BY MOUTH DAILY lisinopril 40 mg tablet 40 mg PO DAILY Qty: 90 0RF carvedilol 6.25 mg tablet 6.25 mg PO DAILY Qty: 90 1RF amlodipine 5 mg tablet 5 mg PO QAM Qty: 90 1RF atorvastatin 80 mg tablet 80 mg PO QPM Qty: 90 1RF Follow-up/Referrals: Tr Zaman MD [Primary Care Provider] - Time of Disposition: 17:23
--- NOTE | 2025-02-18 15:52 | PC.NURSE ---
patient taken to bathroom, will administer pain medication upon arrival back to room.
[2025-02-18] MEDS: MORPHINE SULFATE (*CRX) 4 MG/ML INJ IV PUSH (16:08)
[2025-02-18] MEDS: PIPERACILLN/TAZ 3.375GM/NS50ML 3.375 GM/50 ML BAG IVPB (16:14)
[2025-02-18] MEDS: ONDANSETRON INJ 4 MG/2 ML VIAL IV PUSH ×2 (16:16→18:45)
[2025-02-18 20:22] LABS: Glucose Point of Care 172 mg/dl (65-105)
--- NOTE | 2025-02-19 13:31 | PC.NURSE ---
Preliminary blood culture report; no growth to date.
--- NOTE | 2025-02-21 12:27 | PC.NURSE ---
preliminary urine culture reviewed. no growth to date
--- NOTE | 2025-02-22 12:16 | PC.NURSE ---
FINAL URINE CULTURE REPORT; NO GROWTH.
--- NOTE | 2025-02-24 12:26 | PC.NURSE ---
final blood cultures x2 reviewed. no growth after 5 days. no change in plan of care.
== END 2025-02-18 18:46 | disposition short-term general hospital (02) ==
PROVIDERS: Emergency Provider Emergency Medicine; PCP Family Medicine
DX: K81.0 Acute cholecystitis (principal); E78.5 Hyperlipidemia, unspecified; I25.10 Atherosclerotic heart disease of native coronary artery without angina pectoris; E11.9 Type 2 diabetes mellitus without complications; I10 Essential (primary) hypertension; Z79.82 Long term (current) use of aspirin; Z87.891 Personal history of nicotine dependence
CPT/HCPCS: 36415; 70450; 74177; 80053; 81001; 82948; 83605; 83690; 84484; 85025; 85380; 85610; 85730; 87040; 87086; 93005; 96365; 96375; 96376; 99285; J2270; J2405; J2543; Q9967

== ENCOUNTER 2025-02-18 19:22 | Inpatient (IN) | payer MEDICARE, SELFPAY ==
--- NOTE | ~2025-02-18 | XR_ITS ---
CHEST RADIOGRAPH, PA AND LATERAL CLINICAL HISTORY: Preop . COMPARISON: 09/16/2020 TECHNIQUE: PA and lateral views of the chest. FINDINGS The cardiomediastinal silhouette is unremarkable. The lungs are clear. Blunting of the left costophrenic sulcus is identified, suggesting a small left-sided pleural effusio n. IMPRESSION: Small left-sided pleural effusion, without focal infiltrate. Reviewed, dictated and finalized at location A.
--- NOTE | ~2025-02-18 | US_ITS ---
US abdomen limited INDICATION: Epigastric pain PROCEDURE: Realtime right upper abdominal ultrasound. COMPARISON: CT dated 02/18/2025 FINDINGS: The pancreas is normal without focal mass or pancreatic ductal dilation. Liver echotexture is normal without focal mass or intrahepatic biliary dilatation. There is normal directional flow i n the portal vein. There are gallstones. There is gallbladder wall thickening. No pericholecystic fluid. Common bile du ct measures 3.5 mm. No sonographic Barker's sign. IMPRESSION: 1: Cholelithiasis with gallbladder wall thickening. Consider cholecystitis in the appropriate clinica l setting. Reviewed, dictated and finalized at location A. IMPRESSION: 1: Cholelithiasis with gallbladder wall thickening. Consider cholecystitis in t he appropriate clinical setting.
--- NOTE | ~2025-02-18 | NM_ITS ---
EXAMINATION: NM gideon stress w perfusion DATE: 02/22/2025 14:04 INDICATION: Coronary artery disease for preoperative evaluation. TECHNIQUE: Rest images were obtained following intravenous administration of 9.9 mCi Tc99m tetrofosmi n (Myoview). The patient was infused intravenously with Lexiscan (Regadenoson). Then, a 9.6 mCi Tc99m tetrofosmin (Myoview) was administered intravenously, and stress images were obtained, initially in the supine position with repeat post stress images obtained in the prone position. Data was reconstru cted into short axis and horizontal and vertical long axis SPECT images. Gated SPECT images were also obtained. COMPARISON: None. FINDINGS: There is a reversible perfusion defect at the apical lateral, apical inferior and mid infer ior segments consistent with ischemia. No perfusion defect on the rest imaging to suggest infarct. T here is normal left ventricular chamber size, wall motion and ejection fraction. Left ventricular ej ection fraction measures 62%. IMPRESSION: 1. Small mild reversible perfusion defect consistent with ischemia at the apical lateral, apical infe rior and mid inferior segments. 2. Left ventricular ejection fraction measuring 62%. Reviewed, dictated and finalized at location A. IMPRESSION: 1. Small mild reversible perfusion defect consistent with ischemia at the apica l lateral, apical inferior and mid inferior segments. 2. Left ventricular ejection fraction measuring 62%.
--- NOTE | ~2025-02-18 | NM_ITS ---
EXAMINATION: NM hepatobiliary w pharm DATE: 02/19/2025 12:55 INDICATION: Epigastric pain. Gallstones. COMPARISON: CT dated 02/18/2025 TECHNIQUE: 5.5 mCi Tc-99m mebrofenin (Choletec) was administered intravenously. Scintigraphic images of the abdomen were obtained for one hour. 2 mg morphine was administered by slow intravenous infusi on, and imaging was continued for 30 minutes. Gallbladder ejection fraction was calculated by the timur hnologist. FINDINGS: There is normal clearance of radiotracer from the blood pool. There is homogeneous tracer uptake by t he liver. Activity progresses to the common bile duct by 25 minutes with activity first seen in the small bowel at 30 minutes. There is progressive activity clearance by the liver and accumulation in t he bowels during the 30 minutes of imaging following morphine administration but without evident gall bladder activity consistent with acute cholecystitis. IMPRESSION: 1. No evident gallbladder activity including in the 30 minutes following following morphine administ ration consistent with acute cholecystitis. Reviewed, dictated and finalized at location A. IMPRESSION: 1. No evident gallbladder activity including in the 30 minutes following follo wing morphine administration consistent with acute cholecystitis.
--- NOTE | ~2025-02-18 | US_ITS ---
EXAMINATION: US carotid duplex BI DATE: 02/19/2025 11:28 INDICATION: Near syncope TECHNIQUE: Grayscale, color Doppler, and pulsed Doppler images of the cervical carotid arteries were obtained. The degree of vessel stenosis is placed in one of the following categories: normal, <50%, 5 0-69%, >=70% but less than near-occlusion, near-occlusion, or total occlusion. Note that percent sten osis relative to normal distal artery lumen diameter is indirectly measured from velocity measurement s as described by Alex, et al. Radiology 2003; 229:340-346. Notes: Normal: Peak systolic velocity <125 centimeters/sec and no plaque <50%. Peak systolic velocity <125 ( EDV <40; ICA/CCA PSV ratio <2.0; used these factors only a tandem lesions or low cardiac output or co ntralateral disease) 50-69 %: PSV 125-230 (EDV 40-100; ratio 2-4) >= 70% but less than near occlusion: PSV greater than 230 (EDV > 100; ratio> 4.0) Near Occlusion: PSV that is variable; markedly narrowed lumen Occlusion: Absent flow on color/spectral Doppler and no lumen on lawler scale. COMPARISON: Ultrasound dated 06/03/2020 FINDINGS: RIGHT: The right common carotid artery (CCA) peak systolic velocity (PSV) is 103 cm/s. The right internal ca rotid artery (ICA) PSV is 100 cm/s. The right ICA end-diastolic velocity (EDV) is 16 cm/s. The right ICA/CCA PSV ratio is 1.0. The external carotid artery (ECA) PSV is 125 cm/s. There is antegrade flow in the right vertebral artery. LEFT: The left CCA PSV is 138 cm/s. The left ICA PSV is 134 cm/s. The left ICA EDV is 21 cm/s. The left ICA /CCA PSV ratio is 1.. The ECA PSV is 248 cm/s. There is antegrade flow in the left vertebral artery. IMPRESSION: 1. Less than 50% stenosis in the right internal carotid artery by sonographic criteria. 2. 50-69% stenosis in the left internal carotid artery by sonographic criteria. Reviewed, dictated and finalized at location A. IMPRESSION: 1. Less than 50% stenosis in the right internal carotid artery by sonographic c riteria. 2. 50-69% stenosis in the left internal carotid artery by sonographic criteria.
--- OUTSIDE RECORDS SUMMARY | 2025-02-18 19:26 | XMS_ITS | Encounter Summary ---
Author Organization [facility] Address [address] [place] [address] Phone Care Team Providers Care Photographic Equipment Mechanic Name Role Phone Wilner Hare MD Primary Care Provider + Wilner Hare MD Unavailable [phone] Tr Zaman MD Primary Care Provider [phone] Encounter Details Date Type Department Care Team [...] on file Legal Sex Male 12:07 AM SUPERVISOR FILTRATION Gender Identity Male 10/04/2020 1:22 PM SUPERVISOR FILTRATION Sexual Orientation Something else 10/04/2020 1: 22 PM SUPERVISOR FILTRATION documented as of this encounter Plan of [...] COVID: Suspected 08/24/2024 08/24/2024 08/24/2024 4:50 PM SUPERVISOR FILTRATION documented as of this encounter Care Teams Photographic Equipment Mechanic Relationship Specialty Start Date End Date Wilner Hare MD [address] [place] [address] [place] [address] PCP - General 01/29/17 08/23/24 Tr Zaman MD [address] [place] [address] [place] [address] PCP - General Family Practice 08/24/24 Wilner Hare MD [address] [place] [address] [place] [address] 01/23/17 documented as of this encounter
--- OUTSIDE RECORDS SUMMARY | 2025-02-18 19:26 | XMS_ITS | Encounter Summary ---
Author Organization [facility] Address [address] [place] [address] Phone Care Team Providers Care Cell Technician Name Role Phone Wilner Hare MD Primary Care Provider + Wilner Hare MD Unavailable [phone] Tr Zaman MD Primary Care Provider [phone] Encounter Details Date Type Department Care Team [...] on file Legal Sex Male 12:07 AM DIRECTOR MARKETING Gender Identity Male 10/04/2020 1:22 PM DIRECTOR MARKETING Sexual Orientation Something else 10/04/2020 1: 22 PM DIRECTOR MARKETING documented as of this encounter Plan of [...] COVID: Suspected 08/24/2024 08/24/2024 08/24/2024 4:50 PM DIRECTOR MARKETING documented as of this encounter Care Teams Cell Technician Relationship Specialty Start Date End Date Wilner Hare MD [address] [place] [address] [place] [address] PCP - General 01/29/17 08/23/24 Tr Zaman MD [address] [place] [address] [place] [address] PCP - General Family Practice 08/24/24 Wilner Hare MD [address] [place] [address] [place] [address] 01/23/17 documented as of this encounter
--- OUTSIDE RECORDS SUMMARY | 2025-02-18 19:26 | XMS_ITS | Referral Summary ---
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 [...] on file Legal Sex Male 12:07 AM DAYCARE MANAGER Gender Identity Male 10/04/2020 1:22 PM DAYCARE MANAGER Sexual Orientation Something else 10/04/2020 1: 22 PM DAYCARE MANAGER Last Filed Vital Signs Vital Sign Reading Time Taken Comments Blood Pressure 122/80 08/24/2024 4:32 PM DAYCARE MANAGER Pulse 67 08/24/2024 4:32 PM DAYCARE MANAGER Temperature 36.7 C (98 F) 08/24/2024 4:32 PM DAYCARE MANAGER Respiratory Rate 20 08/24/2024 4:32 PM DAYCARE MANAGER Oxygen Saturation 97% 08/24/2024 4:32 PM DAYCARE MANAGER Inhaled Oxygen Concentration - - Weight 76.7 kg (169 lb) 08/24/2024 4:32 PM DAYCARE MANAGER Height 172.7 cm (5' 8 ) 12/04/2023 9:23 AM DAYCARE MANAGER Body Mass Index 25.7 12/04/2023 9:23 AM DAYCARE MANAGER Plan of Treatment Not on file Procedures Procedure Name Priority Date/Time Associated Diagnosis Comments BASIC METABOLIC PANEL Routine 09/26/2022 9:44 AM DAYCARE MANAGER HEMOGLOBIN A1C Routine 09/26/2022 9:44 AM DAYCARE MANAGER ALBUMIN CREATININE RATIO, URINE Routine 09/26/2022 9:44 AM DAYCARE MANAGER HM DIABETES FOOT EXAM Routine 06/07/2017 LIPID PANEL After X-Ray 02/28/2017 11:33 PM CDT PSA SCREENING Routine 01/03/2017 from Last 3 Months or Most Recently Relevant to Health Maintenance Results * Albumin Creatinine Ratio, Urine (09/26/2022 9:44 AM DAYCARE MANAGER) Creatinine ur 54.8 Not Estab. mg/dL [facility] - 01 Microalbumin, ur 7.0 Not Estab. ug/mL [facility] - 01 Microalbumin/cre at ratio 13 0 - 29 mg/g creat [facility] - 01 Comment: Normal: 0 - 29 Moderately increased: 30 - 300 Severely increased: >300 09/26/2022 9:44 AM DAYCARE MANAGER 09/26/2022 Narrative [facility] - 09/27/2022 8:14 AM DAYCARE MANAGER Performed at: [address] [place] [id number] [employer] Art Teacher: Imer Morgan PhD, Phone: [phone] Wilner Braxton MD LAB URINE ORDERABLES Fin al Result Performing Organization Address [facility] de Phone Number [facility]CO [facility] - 01 * (ABNORMAL) Hemoglobin A1c (09/26/2022 9:44 AM DAYCARE MANAGER) Hgb A1C 6.8(H) 4.8 - 5.6 % [facility] - 01 Comment: Prediabetes: 5.7 - 6.4 Diabetes: >6.4 Glycemic control for adults with diabetes: <7.0 09/26/2022 9:44 AM DAYCARE MANAGER 09/26/2022 Narrative [facility] - 09/27/2022 7:09 AM DAYCARE MANAGER Performed at: [address] [place] [id number] [employer] Art Teacher: Imer Morgan PhD, Phone: [phone] Wilner Braxton MD LAB BLOOD ORDERABLES Fin al Result Performing Organization Address [facility] Co de Phone Number [facility] - 01 * (ABNORMAL) Basic metabolic panel (09/26/2022 9:44 AM DAYCARE MANAGER) Pathologist [facility] Glucose 145(H) 70 - 99 mg/dL [facility] [...] mg/dL [facility] - 01 09/26/2022 9:44 AM DAYCARE MANAGER 09/26/2022 Narrative [facility] - 09/27/2022 7:09 AM DAYCARE MANAGER Performed at: - [facility] [address] [id number] [employer] Art Teacher: Imer Morgan PhD, Phone: [phone] Wilner Braxton MD LAB BLOOD ORDERABLES Fin al Result [facility] - 01 * DIABETES FOOT EXAM (06/07/2017) [facility] Diabetic Foot Exam Normal Historical Provider HEALTH MAINTENANCE Final Result * Lipid panel (02/28/2017 11:33 PM CDT) Pathologist [facility] Cholesterol 89 30 - 200 mg/dL [facility] [...] 2015. Triglycerides 49 0 - 150 mg/dL [facility] Comment: Interpretive Data Desirable: < 150 mg/dL Borderline High: 150 - 199 mg/dL High: 200 - 499 mg/dL Very High: > or = 499 mg/dL Literature Reference: See Cholesterol Current interpretive data was last revised on 2015. HDL 40 >=40 mg/dL [facility] Comment: Interpretive Data Less than 40 mg/dL - low; A major risk factor for heart disease. Greater than or equal to 60 mg/dL - High; considered protective of heart disease. Literature Reference: See Cholesterol Current interpretive data was last revised on 2015. LDL, calculated 39 10 - 129 mg/dL [facility] Comment: Interpretive Data Optimal: < 100 mg/dL Near Optimal: 100 - 129 mg/dL Borderline High: 130 - 159 mg/dL High: 160 - 189 mg/dL Very high: > or = 190 mg/dL Literature Reference: See Cholesterol Current interpretive data was last revised on 2015. Non-HDL Cholesterol 49 mg/dL [facility] Comment: Interpretive Data When triglycerides are >200 mg/dL, non-HDL C is a secondary target of therapy, with a goal 30 mg/dL higher than the identified LDL-C goal. Reference: See Cholesterol Reference. Current interpretive data was last revised 2015. Blood specimen (specimen) 02/28/2017 11:33 PM CDT 03/01/2017 12:43 AM CDT Sterling Hernandez MD LAB BLOOD ORDERABLES Ashlyn l Result [facility] [place] [address] * PSA SCREENING (01/03/2017) Pathologist [facility] PSA Normal Historical Provider HEALTH MAINTENANCE Final Result from Last 3 Months or Most Recently Relevant to Health Maintenance Insurance [facility] ADVANTAGE [facility] MDCR HMO REF [facility] MEDICARE ADVANTAGE Care Teams Waterworks Employee Relationship Specialty Start Date End Date Tr Zaman MD [facility] [place] [address] PCP - General Family Practice 08/24/24 Wilner Braxton MD [address] [place] [address] [place] [address] 01/23/17
--- OUTSIDE RECORDS SUMMARY | 2025-02-18 19:26 | XMS_ITS | Clinical Summary ---
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 I would [...] OA - Oste oarthritis of knee; Comments: [facility] 01/03/2017 - Benign prostatic hyperplasia BPH - Benign prostatic hypertrophy; Comments: [facility] 01/03/2017 - Decreased hearing Decreased hear ing; Comments: [facility] 01/03/2017 -; Laterality: left Cataract Cataract; Commen ts: [facility] 01/03/2017 -; Laterality: bilateral Hypertension [...] on file Legal Sex Male 12:07 AM UNDERGROUND FOREMAN Gender Identity Male 10/04/2020 1:22 PM UNDERGROUND FOREMAN Sexual Orientation Something else 10/04/2020 1: 22 PM UNDERGROUND FOREMAN Obstetrics History Last Filed Vital Signs Vital Sign Reading Time Taken Comments Blood Pressure 122/80 08/24/2024 4:32 PM UNDERGROUND FOREMAN Pulse 67 08/24/2024 4:32 PM UNDERGROUND FOREMAN Temperature 36.7 C (98 F) 08/24/2024 4:32 PM UNDERGROUND FOREMAN Respiratory Rate 20 08/24/2024 4:32 PM UNDERGROUND FOREMAN Oxygen Saturation 97% 08/24/2024 4:32 PM UNDERGROUND FOREMAN Inhaled Oxygen Concentration - - Weight 76.7 kg (169 lb) 08/24/2024 4:32 PM UNDERGROUND FOREMAN Height 172.7 cm (5' 8 ) 12/04/2023 9:23 AM UNDERGROUND FOREMAN Body Mass Index 25.7 12/04/2023 9:23 AM UNDERGROUND FOREMAN Plan of Treatment Health Maintenance Due Date [...] BASIC METABOLIC PANEL Routine 09/26/2022 9:44 AM UNDERGROUND FOREMAN HEMOGLOBIN A1C Routine 09/26/2022 9:44 AM UNDERGROUND FOREMAN ALBUMIN CREATININE RATIO, URINE Routine 09/26/2022 9:44 AM UNDERGROUND FOREMAN DIABETES FOOT EXAM Routine 06/07/2017 LIPID PANEL After X-Ray 02/28/2017 11:33 PM CDT PSA SCREENING Routine 01/03/2017 from Last 3 Months or Most Recently Relevant to Health Maintenance Results * Albumin Creatinine Ratio, Urine (09/26/2022 9:44 AM UNDERGROUND FOREMAN) Pathologist [facility] Creatinine ur 54.8 Not Estab. mg/dL [facility] - 01 Microalbumin, ur 7.0 Not Estab. ug/mL [facility] - 01 Microalbumin/cre at ratio 13 0 - 29 mg/g creat [facility] - 01 Comment: Normal: 0 - 29 Moderately increased: 30 - 300 Severely increased: >300 09/26/2022 9:44 AM UNDERGROUND FOREMAN 09/26/2022 Narrative [facility] - 09/27/2022 8:14 AM UNDERGROUND FOREMAN Performed at: [address] [place] [id number] Choir Member: Imer Morgan PhD, Phone: [phone] Wilner Braxton MD LAB URINE ORDERABLES Fin al Result Performing Organization Address [facility] de Phone Number [facility] - * (ABNORMAL) Hemoglobin A1c (09/26/2022 9:44 AM UNDERGROUND FOREMAN) Pathologist [facility] Hgb A1C 6.8(H) 4.8 - 5.6 % [facility] - 01 Comment: Prediabetes: 5.7 - 6.4 Diabetes: >6.4 Glycemic control for adults with diabetes: <7.0 09/26/2022 9:44 AM UNDERGROUND FOREMAN 09/26/2022 Narrative [facility] - 09/27/2022 7:09 AM UNDERGROUND FOREMAN Performed at: [address] [id number] Choir Member: Imer Morgan PhD, Phone: [phone] Wilner Braxton MD LAB BLOOD ORDERABLES Fin al Result Performing Organization Address [facility] de Phone Number [facility] - * (ABNORMAL) Basic metabolic panel (09/26/2022 9:44 AM UNDERGROUND FOREMAN) [facility] Glucose 145(H) 70 - 99 mg/dL [facility] [...] mg/dL [facility] - 01 09/26/2022 9:44 AM UNDERGROUND FOREMAN 09/26/2022 Narrative [facility] - 09/27/2022 7:09 AM UNDERGROUND FOREMAN Performed at: - [address] [id number] Choir Member: Imer Morgan PhD, Phone: [phone] Wilner Braxton MD LAB BLOOD ORDERABLES Fin al Result [facility] - 01 * DIABETES FOOT EXAM (06/07/2017) [facility] Diabetic Foot Exam Normal Historical Provider HEALTH MAINTENANCE Final Result * Lipid panel (02/28/2017 11:33 PM CDT) [facility] Cholesterol 89 30 - 200 mg/dL [facility] Comment: Interpretive Data Desirable: <200 [...] on 2015. HDL 40 >=40 mg/dL [facility] Comment: Interpretive Data Less than 40 mg/dL - low; A major risk factor for heart disease. Greater than or equal to 60 mg/dL - High; considered protective of heart disease. Literature Reference: See Cholesterol Current interpretive data was last revised on 2015. LDL, calculated 39 10 - 129 mg/dL [facility] Comment: Interpretive Data Optimal: < 100 mg/dL Near Optimal: 100 - 129 mg/dL Borderline High: 130 - 159 mg/dL High: 160 - 189 mg/dL Very high: > or = 190 mg/dL Literature Reference: See Cholesterol Current interpretive data was last revised on 2015. Non-HDL Cholesterol 49 mg/dL [facility] Comment: Interpretive Data When triglycerides are >200 mg/dL, non-HDL C is a secondary target of therapy, with a goal 30 mg/dL higher than the identified LDL-C goal. Reference: See Cholesterol Reference. Current interpretive data was last revised 2015. Blood specimen (specimen) 02/28/2017 11:33 PM CDT 03/01/2017 12:43 AM CDT us Sterling Hernandez MD LAB BLOOD ORDERABLES Ashlyn reed Result [facility] Department [place] [address] * PSA SCREENING (01/03/2017) PSA Normal us Historical Provider HEALTH MAINTENANCE Final Result from Last 3 Months or Most Recently Relevant to Health Maintenance Insurance [facility] MEDICARE ADVANTAGE R HMO REF Member Subscriber Plan / Payer ( fective 2021-) Name:Mark Patel Relation to Subscriber:Self Name:Mark Patel Payer ID:[id number] ([facility]) Type:UHC MEDICARE Address: [place] [id number] UHC MEDICARE ADVANTAGE [facility] MEDICARE Address: [facility] [address] [place] [address] Care Teams Modular Set Crew Member Relationship Specialty Start Date End Date Tr Zaman MD [address] [place] [address] [place] [id number] PCP - General Family Practice 08/24/24 Wilner Braxton MD [address] [place] [address] [place] [id number] 01/23/17
--- OUTSIDE RECORDS SUMMARY | 2025-02-18 19:26 | XMS_ITS | Encounter Summary ---
Author Organization [facility] Address [address] [place] [address] Phone Care Team Providers Care Fence Manufacture Supervisor Name Role Phone Wilner Hare MD Primary Care Provider + Wilner Hare MD Unavailable [phone] Tr Zaman MD Primary Care Provider [phone] Encounter Details Date Type Department Care Team [...] on file Legal Sex Male 12:07 AM FLOCCULATOR OPERATOR Gender Identity Male 10/04/2020 1:22 PM FLOCCULATOR OPERATOR Sexual Orientation Something else 10/04/2020 1: 22 PM FLOCCULATOR OPERATOR documented as of this encounter Plan [...] COVID: Suspected 08/24/2024 08/24/2024 08/24/2024 4:50 PM FLOCCULATOR OPERATOR documented as of this encounter Care Teams Fence Manufacture Supervisor Relationship Specialty Start Date End Date Wilner Hare MD [address] [place] [address] [place] [id number] PCP - General 01/29/17 08/23/24 Tr Zaman MD [address] [place] [address] [place] [address] PCP - General Family Practice 08/24/24 Wilner Hare MD [address] [place] [address] [place] [address] 01/23/17 documented as of this encounter
[2025-02-18 19:35] VITALS: BMI 26.4
--- NOTE | 2025-02-18 19:35 | ADMGEN ---
This patient, Mark Patel, was admitted to [address] [place] [address] Room 305-02 at 19:20. Patient/family oriented to hospital policies and general routines including ID bracelet, bed and alarms, visiting hours, pain management, procedures, bathroom and other care routines, personal items, smoking policy, room service/diet, and visiting hours. Information on how to activate the Rapid Response Team has been discussed. Patient/Family are encouraged to report perceived risks to care and to ask questions if they do not understand what they are told or what they should do.
--- NOTE | 2025-02-18 20:55 | PM.IMHP ---
H&P: HPI History of Present Illness Date/Time: 02/18/25 20:55 Chief Complaint: Near-syncope and possible cholecystitis. Narrative: This is an 89-year-old male with history of nonobstructive coronary artery disease, hypertension, hyperlipidemia, gastroesophageal reflux disease, and type 2 diabetes mellitus who is being directly admitted to the medical floor from the emergency department at the [facility] for further evaluation of near-syncope and possible cholecystitis. The last several years he has had intermittent episodes of lightheadedness and dizziness which he has attributed to the fact that he is getting older. It has been worse this year and has been occurring daily for the past week or so. He seems to notice it when going from a seated to standing position and tells me that he feels lightheaded, almost as though he is going to pass out, short time thereafter. He also mentions that his legs feel weak during these episodes and that he feels as though his balance is off. He monitors his blood pressures at home and has noticed that the diastolic number is may be a bit lower than usual however his systolics are typically in the 130s to 140s and he has not noticed any change there. He has gradually lost weight over the years but nothing significant or recent. There have been no recent changes in medications. Luckily he has not had any falls and denies syncope, headache, overt vertigo, visual changes, focal weakness, paresthesias, and difficulties speaking and swallowing. He also denies chest and pleuritic pain, palpitations, and shortness of breath. While in the emergency department he had an episode of upper abdominal discomfort, almost like a fullness or squeezing sensation which he calls indigestion. With further questioning he admits to having similar symptoms on occasion, most notably after eating fatty or fried foods. He had a similar episode last week with 1 episode of nonbloody and nonbilious emesis. He denies fever, chills, sweats, current abdominal pain, vomiting today, diarrhea, and dysuria.. In fact he reports intermittent issues with constipation. In the ED: He was afebrile on arrival. Blood pressures were in the 170s to 180s systolic but have improved. Labs were significant for WBC count of 12.6, sodium 135, creatinine 0.63, glucose 145, lactic acid 0.8, lipase 74, and normal LFTs. No acute findings were noted on head CT. CT of the abdomen pelvis showed cholelithiasis with trace amount of pericholecystic fluid suspicious for acute cholecystitis and diffuse wall thickening of the bladder. He was given a dose of piperacillin-tazobactam and transfer was initiated to [place] for surgery consultation. At the time my evaluation he is resting comfortably and has no complaints aside from fact that he is hungry Review of Systems Review of Systems: 12 systems were reviewed and are negative except for as per HPI. [facility] Past Medical History Medical History (Updated 02/18/25 @ 23:55 by Yoselyn Woodruff PA-C) Type 2 diabetes mellitus Urinary retention Osteoarthritis Adenomatous colon polyp (~05/2015) Gastroesophageal reflux disease Coronary artery disease Poorly documented in the EMR, patient apparently has nonocclusive coronary disease however he cannot provide me with any details regarding this. Carotid stenosis Status post bilateral carotid endarterectomy. Hypertension Hyperlipidemia Surgical History Surgical History History of bilateral cataract extraction History of bilateral carotid endarterectomy (~2016) Family History Family History Sibling Diabetes mellitus Hypertension Social History Social History Social History: Surrogate medical decision maker: Deb Patel, spouse. Code status: Full code. Smoking packs per day: 1 Smoking cigarettes per day: 20.0 Years smoked: 15 Smoking pack-years: 15.00 Smoking status: Former smoker Tobacco type: cigarettes Smoking end date: 10/07/69 Alcohol intake: current Drinks per week: 7 Substance use: never Substance use type: does not use Do You Feel Safe in your Home?: Yes Lack of Transportation: No Lack of Food: Never True Current Housing: I Have Housing Concerned About Future Housing: No Difficulty Paying Gas/Electric Bills: No Difficulty Paying for Meds: No Currently Unemployed: No Education: High School Diploma/GED Difficulty w/ Childcare or Family Care: No Living arrangements: with family Additional living arrangements comments: Lives in [place] with his . 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 Spiritual care concerns: No Meds Home Medications and Allergies Home Medications ?Medication ?Instructions ?Recorded ?Confirmed ?Type aspirin 325 mg tablet 325 mg PO HS 05/20/20 02/18/25 History cholecalciferol (vitamin D3) 25 25 mcg PO DAILY 09/09/20 02/18/25 History mcg (1,000 unit) tablet omeprazole 20 mg capsule,delayed See Rx Instructions .Route 11/13/21 02/18/25 Rx release .COMPLEX #90 caps metformin 500 mg tablet,extended See Rx Instructions .Route 10/28/24 02/18/25 Rx release 24 hr .COMPLEX #100 tabs lisinopril 40 mg tablet 40 mg PO DAILY #90 tabs 12/29/24 02/18/25 Rx carvedilol 6.25 mg tablet 6.25 mg PO DAILY #90 tabs 12/30/24 02/18/25 Rx amlodipine 5 mg tablet 5 mg PO QAM #90 tabs 01/29/25 02/18/25 Rx atorvastatin 80 mg tablet 80 mg PO QPM #90 tabs 02/11/25 02/18/25 Rx Allergies Allergy/AdvReac Type Severity Reaction Status Date / Time No Known Allergies Allergy Verified 02/18/25 13:25 Exam Narrative: General: Well-developed, nontoxic-appearing gentleman sitting up in bed in no acute distress. Weight: 70.8 kg. BMI: 26.4. HEENT: PERRL, EOMI. Sclera anicteric. Tacky mucous membranes. Neck: Supple. Respiratory: Lungs are clear to auscultation bilaterally. Cardiovascular: Regular rate and rhythm with S1-S2. Soft systolic murmur at the upper sternal border. Gastrointestinal: Abdomen is soft, nontender, and nondistended with positive bowel sounds. Negative Barker sign. Bladder feels a bit distended. Skin: Warm and dry. No rash or lesions on limited exam. Extremities: No cyanosis, clubbing, or edema. Radial and pedal pulses intact. Neurological: Alert. Cranial nerves 2-12 are grossly intact. No gross focal deficits to casual conversation. Psychiatric: Pleasant and cooperative with normal mood and affect. Judgment and insight intact. H&P: Results Labs Labs: Labs from outside facility: 02/18/25 02/18/25 Range/Units 13:41 14:05 WBC 12.6 H (4.8-10.8) K/mm3 RBC 4.18 L (4.70-6.10) M/mm3 Hgb 13.1 (12.4-15.3) g/dL Hct 39.1 (37.0-46.0) % MCV 93.5 (78.0-102.0) fL MCH 31.3 H (27.0-31.0) pg MCHC 33.5 (32-36) g/dL RDW 11.8 (11.6-14.4) % Plt Count 193 (150-420) K/mm3 MPV 10.7 (8.7-11.0) fl Immature Gran % (Auto) 0.3 H (0.0-0.0) % Neut % (Auto) 81.8 H (50.0-70.0) % Lymph % (Auto) 8.4 L (18.0-42.0) % [place] % (Auto) 7.9 (2.0-11.0) % Eos % (Auto) 1.0 (1.0-6.0) % Baso % (Auto) 0.6 (0.0-1.0) % Lymph # (Auto) 1.05 L (1.10-4.50) K/mm3 [place] # (Auto) 0.99 H (0.10-0.90) K/mm3 Eos # (Auto) 0.12 (0.02-0.50) K/mm3 Baso # (Auto) 0.07 (0.00-0.10) K/mm3 Abs Immat Gran (auto) 0.04 H (0.00-0.00) K/mm3 Absolute Neuts (auto) 10.28 H (1.70-7.20) K/mm3 Absolute Nucleated RBC 0.00 (0.00-0.00) K/mm3 Nucleated RBC % 0.0 (0-0.0) % PT 10.9 (9.50-12.1) Seconds INR 1.0 APTT 24.5 (23.9-30.70) Sec D-Dimer 0.48 (0.19-0.50) mg/L Sodium 135 L (137-145) mmol/L Potassium 4.1 (3.4-5.0) mmol/L Chloride 102 (98-107) mmol/L Carbon Dioxide 29 (22-30) mmol/L Anion Gap 4 (4-12) mmol/L BUN 15 D (9-20) mg/dL Creatinine 0.63 L (0.7-1.3) mg/dL Estim Creat Clear Calc 68 ml/min Estimated GFR > 60 (59 - ) Glucose 145 H (65-110) mg/dL Calculated Osmolality 283 L (285-295) mOsm/kg Lactic Acid 0.8 (0.4-2.0) mmol/L Calcium 8.9 (8.4-10.2) mg/dL Total Bilirubin 0.9 (0.2-1.3) mg/dL AST 24 (17-59) U/L ALT 18 (6-50) U/L Alkaline Phosphatase 44 (38-126) U/L Troponin I < 0.012 (0.000-0.034) ng/mL Total Protein 7.2 (6.3-8.2) g/dL Albumin 4.1 (3.5-5.1) g/dL Lipase 74 (23-300) U/L Urine Color Light yellow (Yellow) Urine Appearance Clear (Clear) Urine pH 7.0 (5.0-8.0) Ur Specific [place] 1.020 (1.010-1.020) Urine Protein Negative (Negative) Urine Glucose (UA) Negative (Negative) Urine Ketones Negative (Negative) Ur Blood (Man) Negative (Negative) Urine Nitrate Negative (Negative) Urine Bilirubin Negative (Negative) Urine Urobilinogen 1.0 (0.2-1.0) mg/dL Leukocyte Esterase Rfl 1+ H (Negative) NORMA/UL Urine RBC 0-2 (0-2) /hpf Urine WBC 4-6 H (0-3) /hpf Ur Squamous Epith Cells Rare (Few) /hpf Urine Bacteria 2+ (None) /hpf Imaging: EXAMINATION: CT abdomen pelvis w con DATE: 02/18/2025 15:05 INDICATION: Right-sided abdominal pain and episode of vomiting. TECHNIQUE: Computed tomography (CT) of the abdomen and pelvis was performed with 100 mL Omnipaque-350 intravenous contrast. Automated exposure control and iterative reconstruction technique were employed. The dose-length product was 578.66 mGy-cm. COMPARISON: None FINDINGS: Mild dependent atelectasis in the bilateral lower lobes and mild discoid atelectasis at the lingula. Heart size normal. Atherosclerotic coronary artery calcific lesion. No pericardial or pleural effusion. Focal hepatic steatosis at the ligamentum teres. There are multiple small calcite gallstones the dependent aspect of the gallbladder. There appears be a trace amount of pericholecystic fluid which could be seen with acute cholecystitis. Spleen, pancreas, bilateral adrenal glands and kidneys are normal. Bowels including the appendix are normal. Small bilateral fat-containing inguinal hernias. There is diffuse wall thickening of the incompletely distended bladder which could be related to chronic outlet obstruction from the enlarged prostate or due to cystitis either acute or chronic. No free intraperitoneal gas or fluid. No pathologically enlarged abdominal or pelvic lymphadenopathy. Mild to moderate scattered degenerative skeletal changes in the spine and pelvis. IMPRESSION: 1. Cholelithiasis with trace amount of pericholecystic fluid suspicious for acute cholecystitis. Correlate for Barker sign and could consider HIDA scan for further evaluation as clinically indicated. 2. Diffuse wall thickening of the bladder which could be due to chronic outlet obstruction from the enlarged prostate or due to cystitis either acute or chronic. Correlate with urinalysis. Assessment and Plan Assessment and plan (1) Near syncope: Code(s): R55 - Syncope and collapse Status: Acute (2) Cholecystitis with cholelithiasis: Code(s): K80.10 - Calculus of gallbladder with chronic cholecystitis without obstruction Status: Acute (3) Hypertension: Qualifiers: Hypertension type: primary hypertension Qualified Code(s): I10 - Essential (primary) hypertension Code(s): I10 - Essential (primary) hypertension Status: Acute (4) Type 2 diabetes mellitus: Code(s): E11.9 - Type 2 diabetes mellitus without complications Status: Acute Plan The patient presented to the outside facility for evaluation of dizziness and near-syncope over the past 1 week as detailed in HPI. Labs, imaging, EKG, and all reports were personally reviewed. Symptoms seem to occur shortly after going from a seated to standing position and orthostatic vital signs have been ordered. He will be monitored on telemetry to rule out cardiac dysrhythmias. Recent echocardiogram approximately 6 weeks ago was reviewed and will not be repeated. Check carotid Doppler ultrasounds. At the time of my evaluation he is without pain and has a benign abdominal exam. However it does sound as though he is having intermittent gallbladder attacks and surgery has been consulted. Blood pressures were high in the ED at the outside facility but have improved and will be monitored closely. Hold metformin for now. Initiate sliding scale insulin, Accu-Cheks, and hypoglycemic protocol. The rest of his home medications will be reviewed and resumed as appropriate. Findings and treatment plan were discussed with the patient. Questions were solicited and answered to satisfaction. The patient's medical management will be taken over by the hospitalist team in a.m. Quality VTE Prophylaxis VTE prophylaxis: mechanical ordered If No VTE Prophylaxis Answer both mechanical and pharmacologic: Reason no pharmacologic proph: medical contraindication (hold for now incase he requires a procedure) The patient has been admitted under observation status. Hospitalist [facility] Advance Care Plan I have confirmed that the patient's Advanced Care Plan is present, code status is documented, or surrogate decision maker is listed in patient medical record.: Yes Medication Reconciliation I have utilized all available resources to obtain, update and review the patients current medications (includes all prescriptions, OTC, herbals, cannabis, and nutritional supplements).: Yes
[2025-02-18 21:12] VITALS: BP 152/57; PULSE 74; RESP 16; TEMP 36.4; O2SAT 95
[2025-02-18 21:50] VITALS: BP 130/54; BP 132/60; BP 149/52; PULSE 68; PULSE 78; PULSE 82; RESP 18; TEMP 36.6; O2SAT 96; O2SAT 97
[2025-02-18] MEDS: ATORVASTATIN 40 MG TABLET 80 MG PO (22:15)
[2025-02-19] VITALS (11 sets, daily range): BP systolic 117–137; BP diastolic 47–68; PULSE 51–73; RESP 14–16; TEMP 36.4–37.2; O2SAT 95–96
[2025-02-19] MEDS: PIPERACILLN/TAZ 3.375GM/NS50ML 3.375 GM/50 ML BAG IVPB ×5 (00:30→23:54)
[2025-02-19 06:20] LABS: Basophils Absolute Auto 0.1 K/mm3 (0.0-0.1); Basophils Percent Auto 0.5 % (0.2-1.2); Eosinophils Absolute Auto 0.1 K/mm3 (0-0.3); Eosinophils Percent Auto 0.5 % (0-4.4); Hematocrit 37.1 % (42.0-52.0); Hemoglobin 12.4 g/dL (14.0-18.0); Immature Granulocyte Absolute 0.05 K/mm3 (0.00-0.031); Immature Granulocyte Percent A 0.5 % (0-0.5); Lymphocytes Absolute Auto 0.96 K/mm3 (0.9-3.2); Mean Corpuscular HGB Conc 33.4 g/dl (32-36); Mean Corpuscular Hemoglobin 31.4 pg (26-34); Mean Corpuscular Volume 93.9 fl (80-100); Mean Platelet Volume 11.9 fl (7.4-10.4); Monocytes Absolute Auto 1.1 K/mm3 (0.1-0.6); Neutrophils Absolute Auto 8.5 K/mm3 (1.3-6.7); Neutrophils Percent Auto 79.5 % (45.5-73.1); Platelet Count Result 169 k/mm3 (150-375); Red Blood Count 3.95 M/mm3 (4.6-6.20); White Blood Count 10.7 K/mm3 (4.5-10.0)
[2025-02-19 06:30] LABS: Alanine Aminotransferase 80 U/L (6-50); Albumin Level 3.7 g/dL (3.5-5.1); Alkaline Phosphatase 66 U/L (38-126); Anion Gap 4 mmol/L (4-12); Aspartate Amino Transferase 87 U/L (17-59); Bilirubin,Total 1.4 mg/dL (0.2-1.3); Blood Urea Nitrogen 16 mg/dL (9-20); Calcium 8.4 mg/dL (8.4-10.2); Carbon Dioxide 30 mmol/L (22-30); Chloride 100 mmol/L (98-107); Estimated CRCL calculation 56 ml/min; Estimated Glomerular Filt Rate > 60; Glucose 130 mg/dL (65-110); Magnesium 1.9 mg/dL (1.6-2.3); Potassium 3.7 mmol/L (3.4-5.0); Sodium 134 mmol/L (137-145)
[2025-02-19 07:58] LABS: Glucose Point of Care 143 mg/dl (65-105)
[2025-02-19] MEDS: MORPHINE SULFATE (*CRX) 2 MG/ML INJ IV PUSH (12:23)
[2025-02-19] MEDS: PANTOPRAZOLE 40 MG TABLET PO (13:43)
[2025-02-19] MEDS: CHOLECALCIFEROL 1,000 UNITS TABLET 1000 UNITS PO (13:43)
[2025-02-19] MEDS: amLODIPine BESYLATE 5 MG TABLET PO (13:44)
[2025-02-19] MEDS: lisinopriL 20 MG TABLET 40 MG PO (13:44)
--- NOTE | 2025-02-19 14:12 | P.PNIM_ITS ---
Progress Note: A&P Assessment and Plan (1) Near syncope: Code(s): R55 - Syncope and collapse Status: Acute (2) Cholecystitis with cholelithiasis: Code(s): K80.10 - Calculus of gallbladder with chronic cholecystitis without obstruction Status: Acute (3) Hypertension: Qualifiers: Hypertension type: primary hypertension Qualified Code(s): I10 - Essential (primary) hypertension Code(s): I10 - Essential (primary) hypertension Status: Acute (4) Type 2 diabetes mellitus: Code(s): E11.9 - Type 2 diabetes mellitus without complications Status: Acute Plan Acute cholecystitis Hyda scan and abd US concerning for acute cholecystitis. transaminitis zosyn NPO surgery team on board continue to monitor pre syncope recent echo LVEf 65% Carotid US showed 50-69% stenosis in the left internal carotid artery Pt/OT pending DM2 SSI and accu chesks hold metformin continue to monitor HTN coreg, lisinopril CAD coreg, ASA, statin Subjective Date/time seen: 02/19/25 14:12 Interval history: per HPI: This is an 89-year-old male with history of nonobstructive coronary artery disease, hypertension, hyperlipidemia, gastroesophageal reflux disease, and type 2 diabetes mellitus who is being directly admitted to the medical floor from the emergency department at the [facility] for further evaluation of near-syncope and possible cholecystitis. The last several years he has had intermittent episodes of lightheadedness and dizziness which he has attributed to the fact that he is getting older. It has been worse this year and has been occurring daily for the past week or so. He seems to notice it when going from a seated to standing position and tells me that he feels lightheaded, almost as though he is going to pass out, short time thereafter. He also mentions that his legs feel weak during these episodes and that he feels as though his balance is off. He monitors his blood pressures at home and has noticed that the diastolic number is may be a bit lower than usual however his systolics are typically in the 130s to 140s and he has not noticed any change there. He has gradually lost weight over the years but nothing significant or recent. There have been no recent changes in medications. Luckily he has not had any falls and denies syncope, headache, overt vertigo, visual changes, focal weakness, paresthesias, and difficulties speaking and swallowing. He also denies chest and pleuritic pain, palpitations, and shortness of breath. While in the emergency department he had an episode of upper abdominal discomfort, almost like a fullness or squeezing sensation which he calls indigestion. With further questioning he admits to having similar symptoms on occasion, most notably after eating fatty or fried foods. He had a similar episode last week with 1 episode of nonbloody and nonbilious emesis. He denies fever, chills, sweats, current abdominal pain, vomiting today, diarrhea, and dysuria.. In fact he reports intermittent issues with constipation. In the ED: He was afebrile on arrival. Blood pressures were in the 170s to 180s systolic but have improved. Labs were significant for WBC count of 12.6, sodium 135, creatinine 0.63, glucose 145, lactic acid 0.8, lipase 74, and normal LFTs. No acute findings were noted on head CT. CT of the abdomen pelvis showed cholelithiasis with trace amount of pericholecystic fluid suspicious for acute cholecystitis and diffuse wall thickening of the bladder. He was given a dose of piperacillin-tazobactam and transfer was initiated to [place] for surgery consultation. At the time my evaluation he is resting comfortably and has no complaints aside from fact that he is hungry 02/19/25 Patient was seen and examined at bedside. he is feeling fine, denies any chest pain abd pain, nausea vomiting. Has transaminitis. Hyda scan and abd US concerning for acute cholecystitis. surgery team on board. CArtoid US showed 50-69% stenosis in the left internal carotid artery Review of Systems Review of Systems: 12 systems were reviewed and are negativ e except for as per HPI. Exam Narrative: General: Well-developed, nontoxic-appearing gentleman sitting up in bed in no acute distress. Weight: 70.8 kg. BMI: 26.4. HEENT: PERRL, EOMI. Sclera anicteric. Tacky mucous membranes. Neck: Supple. Respiratory: Lungs are clear to auscultation bilaterally. Cardiovascular: Regular rate and rhythm with S1-S2. Soft systolic murmur at the upper sternal border. Gastrointestinal: Abdomen is soft, nontender, and nondistended with positive bowel sounds. Negative Barker sign. Bladder feels a bit distended. Skin: Warm and dry. No rash or lesions on limited exam. Extremities: No cyanosis, clubbing, or edema. Radial and pedal pulses intact. Neurological: Alert. Cranial nerves 2-12 are grossly intact. No gross focal deficits to casual conversation. Psychiatric: Pleasant and cooperative with normal mood and affect. Judgment and insight intact. Objective Data Vital Signs Vital Signs: Vital Signs - 24 hr 02/18/25 20:00 02/18/25 21:12 02/18/25 21:50 Temperature 97.5 F L 97.8 F Pulse Rate 74 68 Respiratory Rate 16 18 Blood Pressure 152/57 H 149/52 H Pulse Oximetry 95 96 Oxygen Delivery Room Air 02/18/25 21:50 02/18/25 21:50 02/19/25 00:00 Temperature 97.8 F 97.8 F Pulse Rate 78 82 57 L Respiratory Rate 18 18 Blood Pressure 132/60 130/54 L Pulse Oximetry 97 97 Oxygen Delivery 02/19/25 04:00 02/19/25 05:39 02/19/25 08:00 Temperature 98.0 F Pulse Rate 58 L 71 66 Respiratory Rate 14 Blood Pressure 123/51 L Pulse Oximetry 96 Oxygen Delivery 02/19/25 12:00 Temperature Pulse Rate 57 L Respiratory Rate Blood Pressure Pulse Oximetry Oxygen Delivery Intake/Output Intake/Output: Intake & Output 02/16/25 02/17/25 02/18/25 02/19/25 23:59 23:59 23:59 23:59 Intake Total 50 Output Total 450 Balance -450 50 Meds/Results Medications: Active Medications Generic Name Dose Route Start Last Admin Trade Name Freq PRN Reason Stop Dose Admin Acetaminophen 650 mg 02/18/25 19:25 Acetaminophen 325 Mg Tablet PO Q4H PRN Mild Pain (1-3) or Fever Hydrocodone Bitart/Acetaminophen 1 tab 02/18/25 19:25 Hydrocodone/Acetaminophen (*Crx) 5-325 Mg Tablet PO Q6H PRN Pain Rated 4-6 Amlodipine Besylate 5 mg 02/19/25 09:00 02/19/25 13:44 Amlodipine Besylate 5 Mg Tablet PO 5 mg QAM [facility] Administration Aspirin 325 mg 02/19/25 21:00 Aspirin 325 Mg Tablet PO HS [facility] Atorvastatin Calcium 80 mg 02/18/25 22:00 02/18/25 22:15 Atorvastatin 40 Mg Tablet PO 80 mg QPM LIZA Administration Carvedilol 6.25 mg 02/19/25 09:00 02/19/25 13:44 Carvedilol 6.25 Mg Tablet PO Not Given Q12HR [facility] Dextrose 12.5 gm 02/18/25 21:54 Dextrose 50% 25 Gm/50 Ml Syringe IV PUSH PRN PRN Hypoglycemia Protocol Glucagon 1 mg 02/18/25 21:54 Glucagon For Inj 1 Mg Vial IM PRN PRN Hypoglycemia Protocol Glucose 15 gm 02/18/25 21:54 Glucose Oral Gel 15 Gm Of Glucse In 37.5 Gm Tube PO PRN PRN Hypoglycemia Protocol Dextrose 1,000 mls @ 100 mls/hr 02/18/25 21:54 Dextrose 5% 1,000 Ml IVPB PRN PRN Hypoglycemia Protocol Piperacillin/Tazobactam/Dextrose 3.375 gm in 50 mls @ 100 mls/hr 02/19/25 06:00 02/19/25 13:43 Zosyn 3.375 Gm/Ns 50 Ml IVPB 100 mls/hr Q6H LIZA Administration Insulin Aspart 2 - 5 units 02/19/25 00:00 02/19/25 12:00 Insulin Aspart (*Bkc) 100 Units/Ml SUB-Q Not Given Q6HR [facility] Protocol Lisinopril 40 mg 02/19/25 09:00 02/19/25 13:44 Lisinopril 20 Mg Tablet PO 40 mg DAILY LIZA Administration Ondansetron HCl 4 mg 02/18/25 19:25 Ondansetron Inj 4 Mg/2 Ml Vial IV PUSH Q6H PRN Nausea And Vomiting Pantoprazole Sodium 40 mg 02/19/25 09:00 02/19/25 13:43 Pantoprazole 40 Mg Tablet PO 40 mg QAM LIZA Administration Vitamin D 1,000 units 02/19/25 09:00 02/19/25 13:43 Cholecalciferol 1,000 Units Tablet PO 1,000 units DAILY LIZA Administration Radiology Results: ITS Impressions Carotid Doppler Study 02/19/25 12:33 IMPRESSION: 1. Less than 50% stenosis in the right internal carotid artery by sonographic criteria. 2. 50-69% stenosis in the left internal carotid artery by sonographic criteria. Abdomen Ultrasound 02/19/25 12:51 IMPRESSION: 1: Cholelithiasis with gallbladder wall thickening. Consider cholecystitis in the appropriate clinical setting. Hepatobiliary Scan Nuclear Medicine 02/19/25 13:02 IMPRESSION: 1. No evident gallbladder activity including in the 30 minutes following following morphine administration consistent with acute cholecystitis. Labs Labs: Laboratory Results - last 24 hr 02/19/25 02/19/25 05:40 07:49 WBC 10.7 H RBC 3.95 L Hgb 12.4 L Hct 37.1 L MCV 93.9 MCH 31.4 MCHC 33.4 RDW 12.0 Plt Count 169 MPV 11.9 H Immature Gran % (Auto) 0.5 Neut % (Auto) 79.5 H Lymph % (Auto) 9.0 L [place] % (Auto) 10.0 H Eos % (Auto) 0.5 Baso % (Auto) 0.5 Lymph # (Auto) 0.96 [place] # (Auto) 1.1 H Eos # (Auto) 0.1 Baso # (Auto) 0.1 Abs Immat Gran (auto) 0.05 H Absolute Neuts (auto) 8.5 H Absolute Nucleated RBC 0.000 Nucleated RBC % 0.0 Sodium 134 L Potassium 3.7 Chloride 100 Carbon Dioxide 30 Anion Gap 4 BUN 16 Creatinine 0.78 Estim Creat Clear Calc 56 Estimated GFR > 60 Glucose 130 H POC Capillary Glucose 143 H Calcium 8.4 Magnesium 1.9 Total Bilirubin 1.4 H AST 87 H ALT 80 H Alkaline Phosphatase 66 Total Protein 7.0 Albumin 3.7 Quality VTE Prophylaxis VTE prophylaxis: mechanical ordered
[2025-02-19 16:41] LABS: Glucose Point of Care 116 mg/dl (65-105)
[2025-02-19] MEDS: CALCIUM CARBONATE (TUMS) 500 MG (200 MG ELEMENTAL) PO (20:53)
[2025-02-19] MEDS: carvediloL 6.25 MG TABLET PO (20:53)
[2025-02-19 23:59] LABS: Glucose Point of Care 109 mg/dl (65-105)
[2025-02-20] VITALS (13 sets, daily range): BP systolic 105–136; BP diastolic 40–52; PULSE 51–72; RESP 12–20; TEMP 36.4–36.7; O2SAT 91–97
[2025-02-20] MEDS: PIPERACILLN/TAZ 3.375GM/NS50ML 3.375 GM/50 ML BAG IVPB ×3 (05:25→18:19)
[2025-02-20 06:12] LABS: Hematocrit 37.4 % (42.0-52.0); Hemoglobin 12.3 g/dL (14.0-18.0); Mean Corpuscular HGB Conc 32.9 g/dl (32-36); Mean Corpuscular Hemoglobin 31.5 pg (26-34); Mean Corpuscular Volume 95.7 fl (80-100); Mean Platelet Volume 11.5 fl (7.4-10.4); Platelet Count Result 170 k/mm3 (150-375); Red Blood Count 3.91 M/mm3 (4.6-6.20); Red Cell Distribution Width 11.9 % (11.5-14.5); White Blood Count 7.7 K/mm3 (4.5-10.0)
[2025-02-20 06:33] LABS: Alanine Aminotransferase 55 U/L (6-50); Albumin Level 3.6 g/dL (3.5-5.1); Alkaline Phosphatase 62 U/L (38-126); Anion Gap 5 mmol/L (4-12); Aspartate Amino Transferase 43 U/L (17-59); Bilirubin,Total 1.2 mg/dL (0.2-1.3); Blood Urea Nitrogen 17 mg/dL (9-20); Calcium 8.4 mg/dL (8.4-10.2); Carbon Dioxide 29 mmol/L (22-30); Chloride 102 mmol/L (98-107); Estimated CRCL calculation 52 ml/min; Estimated Glomerular Filt Rate > 60; Glucose 118 mg/dL (65-110); Potassium 3.6 mmol/L (3.4-5.0); Sodium 136 mmol/L (137-145)
[2025-02-20 06:40] LABS: Glucose Point of Care 130 mg/dl (65-105)
[2025-02-20] MEDS: lisinopriL 20 MG TABLET 40 MG PO (10:01)
[2025-02-20] MEDS: PANTOPRAZOLE 40 MG TABLET PO (10:01)
[2025-02-20] MEDS: amLODIPine BESYLATE 5 MG TABLET PO (10:01)
[2025-02-20] MEDS: carvediloL 6.25 MG TABLET PO ×2 (10:02→20:45)
[2025-02-20] MEDS: CHOLECALCIFEROL 1,000 UNITS TABLET 1000 UNITS PO (10:02)
--- NOTE | 2025-02-20 11:30 | P.CONCA_ITS ---
Assessment and Plan Assessment and plan (1) Preop cardiovascular exam: Code(s): Z01.810 - Encounter for preprocedural cardiovascular examination Status: Acute Assessment and Plan: He can perform greater than 4 metabolic equivalents although he does things quite slowly. She does not have any chest pain or heart failure symptoms but he does have a history of issues while in the OR in the past resulting in an aborted ENT procedure ICU reportedly became pulseless due to drop in BP. Given his frequent PVCs, previously abnormal stress test, and past OR issues, I think it is reasonable to pursue a Lexiscan stress test prior to giving perioperative risk stratification. Echocardiogram recently performed which is unremarkable. No need to repeat. (2) CAD (coronary artery disease): Qualifiers: Coronary Disease-Associated Artery/Lesion type: [place] artery [place] vs. transplanted heart: [place] heart Associated angina: without angina Q ualified Code(s): I25.10 - Atherosclerotic heart disease of [place] coronary artery without angina pectoris Code(s): I25.10 - Atherosclerotic heart disease of [place] coronary artery without angina pectoris Status: Acute Assessment and Plan: Continue aspirin, atorvastatin, lisinopril and carvedilol. Stress test Saturday (3) Carotid stenosis: Qualifiers: Laterality: bilateral Qualified Code(s): I65.23 - Occlusion and stenosis of bilateral carotid arteries Code(s): I65.29 - Occlusion and stenosis of unspecified carotid artery Status: Acute Assessment and Plan: Carotid ultrasound pending (4) Hyperlipidemia: Qualifiers: Hyperlipidemia type: unspecified Qualified Code(s): E78.5 - Hyperlipidemia, unspecified Code(s): E78.5 - Hyperlipidemia, unspecified Status: Acute Assessment and Plan: Continue atorvastatin (5) Hypertension: Qualifiers: Hypertension type: primary hypertension Qualified Code(s): I10 - Essential (primary) hypertension Code(s): I10 - Essential (primary) hypertension Status: Acute Assessment and Plan: Continue amlodipine, carvedilol, lisinopril (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 May need uptitration. Potassium is low normal will give 40 mg potassium chloride p.o. x1 History of Present Illness History of Present Illness Consult date/time: 02/20/25 11:30 Requesting physician: Gonzalez Sexton MD Consult reason: pre-op evaluation and Other (pre syncope) Reason For Visit: Cholelithiasis Narrative: date of service 02/20/2025 Reason for consultation: Preop, presyncope Requesting provider: Dr. Sexton History: Patient is an 89-year-old male who has seen Dr. Valdovinos in the past. He came to the hospital be he had not been feeling very well. He threw up last week. His stomach has been bloated. At some point he happened to mention he felt dizzy and lightheaded at times. He actually tells me that his lightheadedness is very random and will last for a 2nd or 2 and has been present for the past 6 months or so. Will regardless though because of how he was feeling, he went to [facility] for further workup and evaluation. In the emergency room he is blood pressures in the 170s to 180 systolic. White count was elevated. CT scan of the abdomen and pelvis showed cholelithiasis with some amount of alanis cholecystic fluid suspicious for acute cholecystitis. He also had diffuse gallbladder wall thickening. He was given antibiotics and transferred to [facility] further workup evaluation. In 2019 he was having an ENT procedure and supposedly had an episode in which she became pulseless and the procedure was aborted. He was seen in consultation by Dr. Valdovinos at that time. Outpatient stress test performed which showed some inferior ischemia but since the patient was asymptomatic, it was decided pursue medical management. He has had bilateral carotid endarterectomies and does have peripheral vascular disease. He can perform greater than 4 metabolic equivalents of activity without chest pain or shortness of breath but admittedly he does do things at a slowed paste given his advanced age. In general he denies any chest pain, shortness of breath, syncope, paroxysmal nocturnal dyspnea, orthopnea, edema or palpitations. [facility] Past Medical History Medical History (Updated 02/20/25 @ 11:44 by Willard Ricci MD) Type 2 diabetes mellitus Urinary retention Osteoarthritis Adenomatous colon polyp (~05/2015) Gastroesophageal reflux disease Coronary artery disease Poorly documented in the EMR, patient apparently has nonocclusive coronary disease however he cannot provide me with any details regarding this. Carotid stenosis Status post bilateral carotid endarterectomy. Hypertension Hyperlipidemia Surgical History Surgical History History of bilateral cataract extraction History of bilateral carotid endarterectomy (~2017) Family History Family History Sibling Diabetes mellitus Hypertension Social History Social History Social History: Surrogate medical decision maker: Deb Patel, spouse. Code status: Full code. Smoking packs per day: 1 Smoking cigarettes per day: 20.0 Years smoked: 15 Smoking pack-years: 15.00 Smoking status: Former smoker Tobacco type: cigarettes Smoking end date: 10/07/69 Alcohol intake: current Drinks per week: 7 Substance use: never Substance use type: does not use Do You Feel Safe in your Home?: Yes Lack of Transportation: No Lack of Food: Never True Current Housing: I Have Housing Concerned About Future Housing: No Difficulty Paying Gas/Electric Bills: No Difficulty Paying for Meds: No Currently Unemployed: No Education: High School Diploma/GED Difficulty w/ Childcare or Family Care: No Living arrangements: with family Additional living arrangements comments: Lives in [place] with his . 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 Spiritual care concerns: No Meds Home Medications and Allergies Home Medications ?Medication ?Instructions ?Recorded ?Confirmed ?Type aspirin 325 mg tablet 325 mg PO HS 05/20/20 02/18/25 History cholecalciferol (vitamin D3) 25 25 mcg PO DAILY 09/09/20 02/18/25 History mcg (1,000 unit) tablet omeprazole 20 mg capsule,delayed See Rx Instructions .Route 11/13/21 02/18/25 Rx release .COMPLEX #90 caps metformin 500 mg tablet,extended See Rx Instructions .Route 10/28/24 02/18/25 Rx release 24 hr .COMPLEX #100 tabs lisinopril 40 mg tablet 40 mg PO DAILY #90 tabs 12/29/24 02/18/25 Rx carvedilol 6.25 mg tablet 6.25 mg PO DAILY #90 tabs 12/30/24 02/18/25 Rx amlodipine 5 mg tablet 5 mg PO QAM #90 tabs 01/29/25 02/18/25 Rx atorvastatin 80 mg tablet 80 mg PO QPM #90 tabs 02/11/25 02/18/25 Rx Allergies Allergy/AdvReac Type Severity Reaction Status Date / Time No Known Allergies Allergy Verified 02/18/25 13:25 Vital Signs Vital Signs - 24 hr 02/19/25 12:00 02/19/25 14:00 02/19/25 16:00 Temperature 36.4 C L Pulse Rate 57 L 66 73 Respiratory Rate Blood Pressure 137/68 Pulse Oximetry 95 Oxygen Delivery 02/19/25 20:00 02/19/25 20:00 02/19/25 20:31 Temperature 37.2 C Pulse Rate 62 54 L Respiratory Rate 16 Blood Pressure 117/47 L Pulse Oximetry 95 Oxygen Delivery Room Air 02/19/25 20:33 02/19/25 20:53 02/20/25 00:00 Temperature 37.2 C Pulse Rate 51 L 68 52 L Respiratory Rate 16 Blood Pressure 123/55 L Pulse Oximetry 95 Oxygen Delivery 02/20/25 04:00 02/20/25 04:46 02/20/25 10:45 Temperature 36.7 C Pulse Rate 56 L 63 59 L Respiratory Rate 16 Blood Pressure 132/52 L 136/51 L Pulse Oximetry 91 Oxygen Delivery 02/20/25 10:50 02/20/25 10:54 Temperature Pulse Rate 65 72 Respiratory Rate Blood Pressure 119/51 L 105/49 L Pulse Oximetry Oxygen Delivery Exam 2 Narrative: Awake alert oriented appears stated age Const: General: comfortable and no acute distress HENMT: Face/Nose/Sinus: Normal nares present Mouth: Yes moist mucous membranes Eyes: General: appearance normal, both eyes and all related structures S clera: sclerae normal Neck: Neck: supple and no JVD Carotids: bruit Chest: Other: No reproducible chest wall pain to palpation Resp: Effort & Inspection: normal respiratory effort Auscultation: clear to auscultation bilaterally Cardio: Rate: regular rate Rhythm: regular rhythm Heart sounds: Murmur heart sound present Other: 2/6 systolic ejection murmur at base GI: Inspection: non-distended GI Palp: Yes Soft to palpation A uscultation: normal bowel sounds Skin: General skin exam: normal color and no rashes or lesions noted Neuro: Speech: normal speech Sensory Exam: normal sensation Extrem: General: normal to inspection and no edema Psych: Mental Status: mental status grossly normal Affect: normal affect Results Labs and Meds 02/20/25 05:13 02/20/25 05:13 Lab results: Cardiac Enzymes 02/20/25 Range/Units 05:13 AST 43 (17-59) U/L CBC 02/20/25 Range/Units 05:13 WBC 7.7 (4.5-10.0) K/mm3 RBC 3.91 L (4.6-6.20) M/mm3 Hgb 12.3 L (14.0-18.0) g/dL Hct 37.4 L (42.0-52.0) % Plt Count 170 (150-375) k/mm3 Comprehensive Metabolic Panel 02/20/25 Range/Units 05:13 Sodium 136 L (137-145) mmol/L Potassium 3.6 (3.4-5.0) mmol/L Chloride 102 (98-107) mmol/L Carbon Dioxide 29 (22-30) mmol/L BUN 17 (9-20) mg/dL Creatinine 0.85 (0.7-1.3) mg/dL Glucose 118 H (65-110) mg/dL Calcium 8.4 (8.4-10.2) mg/dL AST 43 (17-59) U/L ALT 55 H (6-50) U/L Alkaline Phosphatase 62 (38-126) U/L Total Protein 7.0 (6.3-8.2) g/dL Albumin 3.6 (3.5-5.1) g/dL Intake and Output 02/19/25 02/20/25 02/20/25 23:59 07:59 15:59 Intake Total 1050 300 Output Total 450 375 Balance 600 -75 Intake: IV 50 100 Piperacilln/Damon 3.375GM/Ns50ml 50 100 3.375 gm In 50 ml @ 100 mls/hr IVPB Q6H [facility] Rx#:[id number] Oral 1000 200 Output: Urine 450 375 EKG is personally reviewed and independently interpreted showing sinus rhythm with frequent PVCs Previous Lexiscan stress test showing inferior ischemia
[2025-02-20 12:04] LABS: Glucose Point of Care 115 mg/dl (65-105)
--- NOTE | 2025-02-20 12:13 | P.PNIM_ITS ---
Progress Note: A&P Assessment and Plan (1) Near syncope: Code(s): R55 - Syncope and collapse Status: Acute (2) Cholecystitis with cholelithiasis: Code(s): K80.10 - Calculus of gallbladder with chronic cholecystitis without obstruction Status: Acute (3) Hypertension: Qualifiers: Hypertension type: primary hypertension Qualified Code(s): I10 - Essential (primary) hypertension Code(s): I10 - Essential (primary) hypertension Status: Acute (4) Type 2 diabetes mellitus: Code(s): E11.9 - Type 2 diabetes mellitus without complications Status: Acute Plan Acute cholecystitis Hida scan and abd US concerning for acute cholecystitis. transaminitis improving zosyn NPO on Saturday for stress test surgery team on board continue to monitor pre syncope recent echo LVEf 65% Carotid US showed 50-69% stenosis in the left internal carotid artery Pt/OT pending DM2 SSI and accu chesks hold metformin continue to monitor HTN coreg, lisinopril CAD coreg, ASA, statin Subjective Date/time seen: 02/20/25 12:13 Interval history: per HPI: This is an 89-year-old male with history of nonobstructive coronary artery disease, hypertension, hyperlipidemia, gastroesophageal reflux disease, and type 2 diabetes mellitus who is being directly admitted to the medical floor from the emergency department at the [facility] for further evaluation of near-syncope and possible cholecystitis. The last several years he has had intermittent episodes of lightheadedness and dizziness which he has attributed to the fact that he is getting older. It has been worse this year and has been occurring daily for the past week or so. He seems to notice it when going from a seated to standing position and tells me that he feels lightheaded, almost as though he is going to pass out, short time thereafter. He also mentions that his legs feel weak during these episodes and that he feels as though his balance is off. He monitors his blood pressures at home and has noticed that the diastolic number is may be a bit lower than usual however his systolics are typically in the 130s to 140s and he has not noticed any change there. He has gradually lost weight over the years but nothing significant or recent. There have been no recent changes in medications. Luckily he has not had any falls and denies syncope, headache, overt vertigo, visual changes, focal weakness, paresthesias, and difficulties speaking and swallowing. He also denies chest and pleuritic pain, palpitations, and shortness of breath. While in the emergency department he had an episode of upper abdominal discomfort, almost like a fullness or squeezing sensation which he calls indigestion. With further questioning he admits to having similar symptoms on occasion, most notably after eating fatty or fried foods. He had a similar episode last week with 1 episode of nonbloody and nonbilious emesis. He denies fever, chills, sweats, current abdominal pain, vomiting today, diarrhea, and dysuria.. In fact he reports intermittent issues with constipation. In the ED: He was afebrile on arrival. Blood pressures were in the 170s to 180s systolic but have improved. Labs were significant for WBC count of 12.6, sodium 135, creatinine 0.63, glucose 145, lactic acid 0.8, lipase 74, and normal LFTs. No acute findings were noted on head CT. CT of the abdomen pelvis showed cholelithiasis with trace amount of pericholecystic fluid suspicious for acute cholecystitis and diffuse wall thickening of the bladder. He was given a dose of piperacillin-tazobactam and transfer was initiated to [place] for surgery consultation. At the time my evaluation he is resting comfortably and has no complaints aside from fact that he is hungry 02/19/25 Patient was seen and examined at bedside. he is feeling fine, denies any chest pain abd pain, nausea vomiting. Has transaminitis. hida scan and abd US concerning for acute cholecystitis. surgery team on board. CArtoid US showed 50-69% stenosis in the left internal carotid artery 02/20/25 patient was seen and examined at bedside. he is feeling fine, denies chest pain, SOB ,abd pain, Nausea vomiting. Hida scan positive. cardiology team on board plan for stress test on Saturday before surgery. Review of Systems Review of Systems: 12 systems were reviewed and are negativ e except for as per HPI. Exam Narrative: General: Well-developed, nontoxic-appearing gentleman sitting up in bed in no acute distress. Weight: 70.8 kg. BMI: 26.4. HEENT: PERRL, EOMI. Sclera anicteric. Tacky mucous membranes. Neck: Supple. Respiratory: Lungs are clear to auscultation bilaterally. Cardiovascular: Regular rate and rhythm with S1-S2. Soft systolic murmur at the upper sternal border. Gastrointestinal: Abdomen is soft, nontender, and nondistended with positive bowel sounds. Negative Barker sign. Bladder feels a bit distended. Skin: Warm and dry. No rash or lesions on limited exam. Extremities: No cyanosis, clubbing, or edema. Radial and pedal pulses intact. Neurological: Alert. Cranial nerves 2-12 are grossly intact. No gross focal deficits to casual conversation. Psychiatric: Pleasant and cooperative with normal mood and affect. Judgment and insight intact. Objective Data Vital Signs Vital Signs: Vital Signs - 24 hr 02/19/25 14:00 02/19/25 16:00 02/19/25 20:00 Temperature 97.5 F L Pulse Rate 66 73 Respiratory Rate Blood Pressure 137/68 Pulse Oximetry 95 Oxygen Delivery Room Air 02/19/25 20:00 02/19/25 20:31 02/19/25 20:33 Temperature 99.0 F 99.0 F Pulse Rate 62 54 L 51 L Respiratory Rate 16 16 Blood Pressure 117/47 L 123/55 L Pulse Oximetry 95 95 Oxygen Delivery 02/19/25 20:53 02/20/25 00:00 02/20/25 04:00 Temperature Pulse Rate 68 52 L 56 L Respiratory Rate Blood Pressure Pulse Oximetry Oxygen Delivery 02/20/25 04:46 02/20/25 10:45 02/20/25 10:50 Temperature 98.1 F Pulse Rate 63 59 L 65 Respiratory Rate 16 Blood Pressure 132/52 L 136/51 L 119/51 L Pulse Oximetry 91 Oxygen Delivery 02/20/25 10:54 Temperature Pulse Rate 72 Respiratory Rate Blood Pressure 105/49 L Pulse Oximetry Oxygen Delivery Intake/Output Intake/Output: Intake & Output 02/17/25 02/18/25 02/19/25 02/20/25 23:59 23:59 23:59 23:59 Intake Total 1200 300 Output Total 450 850 375 Balance -450 350 -75 Meds/Results Medications: Active Medications Generic Name Dose Route Start Last Admin Trade Name Freq PRN Reason Stop Dose Admin Acetaminophen 650 mg 02/18/25 19:25 Acetaminophen 325 Mg Tablet PO Q4H PRN Mild Pain (1-3) or Fever Hydrocodone Bitart/Acetaminophen 1 tab 02/18/25 19:25 Hydrocodone/Acetaminophen (*Crx) 5-325 Mg Tablet PO Q6H PRN Pain Rated 4-6 Amlodipine Besylate 5 mg 02/19/25 09:00 02/20/25 10:01 Amlodipine Besylate 5 Mg Tablet PO 5 mg QAM LIZA Administration Aspirin 325 mg 02/19/25 21:00 02/19/25 20:42 Aspirin 325 Mg Tablet PO Not Given HS LIZA Atorvastatin Calcium 80 mg 02/18/25 22:00 02/18/25 22:15 Atorvastatin 40 Mg Tablet PO 80 mg QPM LIZA Administration Calcium Carbonate 200 mg 02/19/25 20:41 02/19/25 20:53 Calcium Carbonate (Tums) 500 Mg (200 Mg Elemental) PO 200 mg Q6H PRN Administration Indigestion Carvedilol 6.25 mg 02/19/25 09:00 02/20/25 10:02 Carvedilol 6.25 Mg Tablet PO 6.25 mg Q12HR LIZA Administration Dextrose 12.5 gm 02/18/25 21:54 Dextrose 50% 25 Gm/50 Ml Syringe IV PUSH PRN PRN Hypoglycemia Protocol Glucagon 1 mg 02/18/25 21:54 Glucagon For Inj 1 Mg Vial IM PRN PRN Hypoglycemia Protocol Glucose 15 gm 02/18/25 21:54 Glucose Oral Gel 15 Gm Of Glucse In 37.5 Gm Tube PO PRN PRN Hypoglycemia Protocol Dextrose 1,000 mls @ 100 mls/hr 02/18/25 21:54 Dextrose 5% 1,000 Ml IVPB PRN PRN Hypoglycemia Protocol Piperacillin/Tazobactam/Dextrose 3.375 gm in 50 mls @ 100 mls/hr 02/19/25 06:00 02/20/25 05:55 Zosyn 3.375 Gm/Ns 50 Ml IVPB Infused Q[facility]H [facility] Infusion Insulin Aspart 2 - 5 units 02/19/25 00:00 02/20/25 12:10 Insulin Aspart (*Bkc) 100 Units/Ml SUB-Q Not Given Q6HR [facility] Protocol Lisinopril 40 mg 02/19/25 09:00 02/20/25 10:01 Lisinopril 20 Mg Tablet PO 40 mg DAILY LIZA Administration Ondansetron HCl 4 mg 02/18/25 19:25 Ondansetron Inj 4 Mg/2 Ml Vial IV PUSH Q6H PRN Nausea And Vomiting Pantoprazole Sodium 40 mg 02/19/25 09:00 02/20/25 10:01 Pantoprazole 40 Mg Tablet PO 40 mg QAM LIZA Administration Vitamin D 1,000 units 02/19/25 09:00 02/20/25 10:02 Cholecalciferol 1,000 Units Tablet PO 1,000 units DAILY LIZA Administration Radiology Results: ITS Impressions Carotid Doppler Study 02/19/25 12:33 IMPRESSION: 1. Less than 50% stenosis in the right internal carotid artery by sonographic criteria. 2. 50-69% stenosis in the left internal carotid artery by sonographic criteria. Abdomen Ultrasound 02/19/25 12:51 IMPRESSION: 1: Cholelithiasis with gallbladder wall thickening. Consider cholecystitis in the appropriate clinical setting. Hepatobiliary Scan Nuclear Medicine 02/19/25 13:02 IMPRESSION: 1. No evident gallbladder activity including in the 30 minutes following following morphine administration consistent with acute cholecystitis. Labs Labs: Laboratory Results - last 24 hr 02/19/25 02/19/25 02/20/25 16:32 23:54 05:13 WBC 7.7 RBC 3.91 L Hgb 12.3 L Hct 37.4 L MCV 95.7 MCH 31.5 MCHC 32.9 RDW 11.9 Plt Count 170 MPV 11.5 H Sodium 136 L Potassium 3.6 Chloride 102 Carbon Dioxide 29 Anion Gap 5 BUN 17 Creatinine 0.85 Estim Creat Clear Calc 52 Estimated GFR > 60 Glucose 118 H POC Capillary Glucose 116 H 109 H Calcium 8.4 Total Bilirubin 1.2 AST 43 ALT 55 H Alkaline Phosphatase 62 Total Protein 7.0 Albumin 3.6 02/20/25 02/20/25 06:35 11:56 WBC RBC Hgb Hct MCV MCH MCHC RDW Plt Count MPV Sodium Potassium Chloride Carbon Dioxide Anion Gap BUN Creatinine Estim Creat Clear Calc Estimated GFR Glucose POC Capillary Glucose 130 H 115 H Calcium Total Bilirubin AST ALT Alkaline Phosphatase Total Protein Albumin Quality VTE Prophylaxis VTE prophylaxis: mechanical ordered
[2025-02-20] MEDS: POTASSIUM CHLORIDE 20 MEQ ER TABLET 40 MEQ PO (12:16)
--- NOTE | 2025-02-20 14:49 | PM.CNGS ---
Assessment and Plan Assessment and plan (1) Cholecystitis with cholelithiasis: Qualifiers: Cholelithiasis location: gallbladder Cholecystitis acuity: acute and chronic Biliary obstruction: without biliary obstruction Qualified Code(s): K80.12 - Calculus of gallbladder with acute and chronic cholecystitis without obstruction Code(s): K80.10 - Calculus of gallbladder with chronic cholecystitis without obstruction Status: Chronic Assessment and Plan: I discussed this with the patient and his . The patient's son and [id number] were listening on a cell phone at the same time. I definitely feel the patient needs to have cholecystectomy. His symptoms are very typical of chronic cholecystitis. They have been getting more frequent. I explained that even though these symptoms are unpleasant, further complications such is acute cholecystitis, common bile duct stones, pancreatitis are all potential problems without gallbladder removal. I described the procedure of laparoscopic cholecystectomy in some detail. I described the usual recovery and length of convalescence. All questions were answered. Patient would like to go ahead when appropriate. (2) Near syncope: Code(s): R55 - Syncope and collapse Status: Acute Assessment and Plan: Hospitalist evaluating. May have been worsened by gallbladder disease. (3) Diabetes type 2, controlled: Qualifiers: Diabetes mellitus director long term care insulin use: without director long term care use Diabetes mellitus complication status: without complication Qualified Code(s): E11.9 - Type 2 diabetes mellitus without complications Code(s): E11.9 - Type 2 diabetes mellitus without complications Status: Chronic (4) Carotid stenosis: Qualifiers: Laterality: bilateral Qualified Code(s): I65.23 - Occlusion and stenosis of bilateral carotid arteries Code(s): I65.29 - Occlusion and stenosis of unspecified carotid artery Status: Chronic Assessment and Plan: Had bilateral endarterectomy in 2017. Appears to have some recurrent disease on the left side but is not symptomatic. (5) CAD (coronary artery disease): Qualifiers: Coronary Disease-Associated Artery/Lesion type: [place] artery [place] vs. transplanted heart: [place] heart Associated angina: without angina Qualified Code(s): I25.10 - Atherosclerotic heart disease of [place] coronary artery without angina pectoris Code(s): I25.10 - Atherosclerotic heart disease of [place] coronary artery without angina pectoris Status: Chronic Assessment and Plan: Patient had cardiac arrest during outpatient ENT procedure 5 years ago. There is no real records of outpatient testing or information regarding a cardiology follow-up in the electronic health record. I will go ahead and consult the heart care group for a preop cardiac evaluation. I did speak to Dr. Ricci, compound filler navigation teacher, who feels a Lexiscan on Saturday is appropriate. Okay for patient to go ahead any low-fat diet and continue antibiotics until this testing is done and surgery can be performed. 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 He has had this lightheaded feeling particularly when getting up from sitting for quite some time. In the last month her to however he has noticed it almost daily. He never passes out but just feels lightheaded and at a balance on standing. He also was noted in the emergency room to be experiencing some discomfort especially after fatty meals in the epigastrium and right upper quadrant. He describes this as a fullness or squeezing. He likes to have braunschweiger sandwiches about 7 in the evening and sometimes notices this afterward but sometimes does not. In the emergency room he had a CT scan which showed evidence of cholecystitis. He subsequently had an ultrasound showing gallstones with some gallbladder wall thickening. Common bile duct was estimated to be 3.5 mm, no sonographic Barker sign was noted. HIDA scan did show nonvisualization of the gallbladder consistent with cholecystitis. His liver function tests were very slightly elevated. Patient was transferred to [facility] for admission both for his pre syncopal episodes and abdominal complaints. Patient does have a history of cerebrovascular disease. He had bilateral carotid endarterectomies in 2017. Carotid Doppler studies on this admission show the right internal carotid artery to have less than 50% stenosis but the left internal carotid was felt to have a 50-69% stenosis. He also has a history of being taken to surgery for biopsy of a nasal septal ulcer as an outpatient. He experienced a cardiac arrest during that procedure and was taken to the ICU. Cardiology evaluated him at that time but he has not followed up with cardiac evaluation since then. Looking at his primary care provider's office notes, patient had epigastric abdominal pain listed as a complaint in June of 2024. Patient is seen now in consultation. He currently denies any abdominal pain but has not really eaten very much. He has no nausea or vomiting. He has not really noticed any additional symptoms of dizziness or lightheadedness. Review of Systems Review of Systems: All systems reviewed & are unremarkable except as noted in HPI and below (HPI) [facility] Past Medical History Medical History Type 2 diabetes mellitus Urinary retention Osteoarthritis Adenomatous colon polyp (~05/2015) Gastroesophageal reflux disease Coronary artery disease Poorly documented in the EMR, patient apparently has nonocclusive coronary disease however he cannot provide me with any details regarding this. Carotid stenosis Status post bilateral carotid endarterectomy. Hypertension Hyperlipidemia Surgical History Surgical History History of bilateral cataract extraction History of bilateral carotid endarterectomy (~2016) Family History Family History Sibling Diabetes mellitus Hypertension Social History Social History Social History: Surrogate medical decision maker: Deb Patel, spouse. Code status: Full code. Smoking packs per day: 1 Smoking cigarettes per day: 20.0 Years smoked: 15 Smoking pack-years: 15.00 Smoking status: Former smoker Tobacco type: cigarettes Smoking end date: 10/07/69 Alcohol intake: current Drinks per week: 7 Substance use: never Substance use type: does not use Do You Feel Safe in your Home?: Yes Lack of Transportation: No Lack of Food: Never True Current Housing: I Have Housing Concerned About Future Housing: No Difficulty Paying Gas/Electric Bills: No Difficulty Paying for Meds: No Currently Unemployed: No Education: High School Diploma/GED Difficulty w/ Childcare or Family Care: No Living arrangements: with family Additional living arrangements comments: Lives in [place] with his . 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 Spiritual care concerns: No Meds Home Medications and Allergies Home Medications ?Medication ?Instructions ?Recorded ?Confirmed ?Type aspirin 325 mg tablet 325 mg PO HS 05/20/20 02/18/25 History cholecalciferol (vitamin D3) 25 25 mcg PO DAILY 09/09/20 02/18/25 History mcg (1,000 unit) tablet omeprazole 20 mg capsule,delayed See Rx Instructions .Route 11/13/21 02/18/25 Rx release .COMPLEX #90 caps metformin 500 mg tablet,extended See Rx Instructions .Route 10/28/24 02/18/25 Rx release 24 hr .COMPLEX #100 tabs lisinopril 40 mg tablet 40 mg PO DAILY #90 tabs 12/29/24 02/18/25 Rx carvedilol 6.25 mg tablet 6.25 mg PO DAILY #90 tabs 12/30/24 02/18/25 Rx amlodipine 5 mg tablet 5 mg PO QAM #90 tabs 01/29/25 02/18/25 Rx atorvastatin 80 mg tablet 80 mg PO QPM #90 tabs 02/11/25 02/18/25 Rx Allergies Allergy/AdvReac Type Severity Reaction Status Date / Time No Known Allergies Allergy Verified 02/18/25 13:25 Vital Signs Vital Signs - 24 hr 02/19/25 16:00 02/19/25 20:00 02/19/25 20:00 Temperature Pulse Rate 73 62 Respiratory Rate Blood Pressure Pulse Oximetry Oxygen Delivery Room Air 02/19/25 20:31 02/19/25 20:33 02/19/25 20:53 Temperature 37.2 C 37.2 C Pulse Rate 54 L 51 L 68 Respiratory Rate 16 16 Blood Pressure 117/47 L 123/55 L Pulse Oximetry 95 95 Oxygen Delivery 02/20/25 00:00 02/20/25 04:00 02/20/25 04:46 Temperature 36.7 C Pulse Rate 52 L 56 L 63 Respiratory Rate 16 Blood Pressure 132/52 L Pulse Oximetry 91 Oxygen Delivery 02/20/25 08:00 02/20/25 10:45 02/20/25 10:50 Temperature Pulse Rate 56 L 59 L 65 Respiratory Rate Blood Pressure 136/51 L 119/51 L Pulse Oximetry Oxygen Delivery 02/20/25 10:54 02/20/25 12:00 Temperature Pulse Rate 72 59 L Respiratory Rate Blood Pressure 105/49 L Pulse Oximetry Oxygen Delivery Exam Const: General: comfortable, no acute distress, alert and awake Nutritional Appearance: well nourished and thin Orientation/consciousness: patient oriented x3 and No confusion HENMT: Head: normocephalic and atraumatic Mouth: Yes Normal oral and palatal mucosa present Eyes: Conjunctivae: conjunctivae normal Pupils: Equal, round and reactive pupils present EOM: EOMs intact bilaterally Neck: Neck: normal visual inspection, no lymphadenopathy and nontender Resp: Effort & Inspection: normal respiratory effort Auscultation: clear to auscultation bilaterally Cardio: Rate: regular rate Rhythm: regular rhythm Heart sounds: no gallops, no murmurs and no rubs GI: Inspection: no abdominal wall ecchymosis, non-distended, scaphoid and no visible herniation GI Palp: Yes Soft to palpation, No Tenderness to palpation present (GI), No Hepatomegaly present, No Splenomegaly present, No Hernia present and No Palpable mass present Auscultation: normal bowel sounds Skin: Lesions: no lesions Rashes: no rashes Neuro: General: no focal motor deficits and CN's II-XI intact bilaterally Cranial nerves: Yes Equal, round and reactive pupils present, Yes Bilaterally intact EOM present, Yes facial symmetry and Yes Midline tongue present Speech: normal speech Motor exam (neuro): 5/5 motor strength present throughout and Motor abnormalities not present Extrem: General: no clubbing, cyanosis or edema and edema Psych: Affect: normal affect Thought process: Normal thought process present Insight: Good insight present (Psych) Results Labs 02/20/25 05:13 02/20/25 05:13 Labs: Abnormal lab results 02/19/25 02/19/25 02/20/25 Range/Units 16:32 23:54 05:13 RBC 3.91 L (4.6-6.20) M/mm3 Hgb 12.3 L (14.0-18.0) g/dL Hct 37.4 L (42.0-52.0) % MPV 11.5 H (7.4-10.4) fl Sodium 136 L (137-145) mmol/L Glucose 118 H (65-110) mg/dL POC Capillary Glucose 116 H 109 H (65-105) mg/dl ALT 55 H (6-50) U/L 02/20/25 02/20/25 Range/Units 06:35 11:56 RBC (4.6-6.20) M/mm3 Hgb (14.0-18.0) g/dL Hct (42.0-52.0) % MPV (7.4-10.4) fl Sodium (137-145) mmol/L Glucose (65-110) mg/dL POC Capillary Glucose 130 H 115 H (65-105) mg/dl ALT (6-50) U/L Diabetes panel 02/20/25 Range/Units 05:13 Sodium 136 L (137-145) mmol/L Potassium 3.6 (3.4-5.0) mmol/L Chloride 102 (98-107) mmol/L Carbon Dioxide 29 (22-30) mmol/L BUN 17 (9-20) mg/dL Creatinine 0.85 (0.7-1.3) mg/dL Glucose 118 H (65-110) mg/dL Calcium 8.4 (8.4-10.2) mg/dL AST 43 (17-59) U/L ALT 55 H (6-50) U/L Alkaline Phosphatase 62 (38-126) U/L Total Protein 7.0 (6.3-8.2) g/dL Albumin 3.6 (3.5-5.1) g/dL Calcium panel 02/20/25 Range/Units 05:13 Calcium 8.4 (8.4-10.2) mg/dL Albumin 3.6 (3.5-5.1) g/dL Pituitary panel 02/20/25 Range/Units 05:13 Sodium 136 L (137-145) mmol/L Potassium 3.6 (3.4-5.0) mmol/L Chloride 102 (98-107) mmol/L Carbon Dioxide 29 (22-30) mmol/L BUN 17 (9-20) mg/dL Creatinine 0.85 (0.7-1.3) mg/dL Glucose 118 H (65-110) mg/dL Calcium 8.4 (8.4-10.2) mg/dL Adrenal panel 02/20/25 Range/Units 05:13 Sodium 136 L (137-145) mmol/L Potassium 3.6 (3.4-5.0) mmol/L Chloride 102 (98-107) mmol/L Carbon Dioxide 29 (22-30) mmol/L BUN 17 (9-20) mg/dL Creatinine 0.85 (0.7-1.3) mg/dL Glucose 118 H (65-110) mg/dL Calcium 8.4 (8.4-10.2) mg/dL Total Bilirubin 1.2 (0.2-1.3) mg/dL AST 43 (17-59) U/L ALT 55 H (6-50) U/L Alkaline Phosphatase 62 (38-126) U/L Total Protein 7.0 (6.3-8.2) g/dL Albumin 3.6 (3.5-5.1) g/dL All other labs normal. Imaging Abdomen CT scan report/results: report reviewed and image reviewed CT scan - pelvis: report reviewed and image reviewed Abdominal ultrasound report/results: report reviewed Additional studies: HIDA scan, report reviewed
[2025-02-20 18:19] LABS: Glucose Point of Care 205 mg/dl (65-105)
[2025-02-20] MEDS: ENOXAPARIN 40 MG/0.4 ML SYRINGE SUB-Q (18:19)
[2025-02-20] MEDS: INSULIN ASPART (*BKC) 100 UNITS/ML SUB-Q (18:20)
[2025-02-20] MEDS: CALCIUM CARBONATE (TUMS) 500 MG (200 MG ELEMENTAL) PO (20:44)
[2025-02-20] MEDS: ASPIRIN 325 MG TABLET PO (20:44)
[2025-02-21] VITALS (10 sets, daily range): BP systolic 133–142; BP diastolic 49–65; PULSE 51–68; RESP 20; TEMP 36.1–36.9; O2SAT 96–98
[2025-02-21] MEDS: PIPERACILLN/TAZ 3.375GM/NS50ML 3.375 GM/50 ML BAG IVPB ×5 (00:05→23:02)
[2025-02-21 00:12] LABS: Glucose Point of Care 95 mg/dl (65-105)
[2025-02-21 06:00] LABS: Alanine Aminotransferase 43 U/L (6-50); Albumin Level 3.6 g/dL (3.5-5.1); Alkaline Phosphatase 54 U/L (38-126); Anion Gap 8 mmol/L (4-12); Aspartate Amino Transferase 33 U/L (17-59); Bilirubin,Total 0.8 mg/dL (0.2-1.3); Blood Urea Nitrogen 17 mg/dL (9-20); Calcium 8.5 mg/dL (8.4-10.2); Carbon Dioxide 27 mmol/L (22-30); Chloride 103 mmol/L (98-107); Estimated CRCL calculation 55 ml/min; Estimated Glomerular Filt Rate > 60; Glucose 112 mg/dL (65-110); Potassium 4.1 mmol/L (3.4-5.0); Sodium 138 mmol/L (137-145)
[2025-02-21 06:49] LABS: Hematocrit 37.2 % (42.0-52.0); Hemoglobin 11.9 g/dL (14.0-18.0); Mean Corpuscular Hemoglobin 31.1 pg (26-34); Mean Corpuscular Volume 97.1 fl (80-100); Mean Platelet Volume 12.1 fl (7.4-10.4); Platelet Count Result 173 k/mm3 (150-375); Red Blood Count 3.83 M/mm3 (4.6-6.20); Red Cell Distribution Width 11.9 % (11.5-14.5); White Blood Count 6.3 K/mm3 (4.5-10.0)
[2025-02-21] MEDS: PANTOPRAZOLE 40 MG TABLET PO (08:59)
[2025-02-21] MEDS: CHOLECALCIFEROL 1,000 UNITS TABLET 1000 UNITS PO (08:59)
[2025-02-21] MEDS: carvediloL 6.25 MG TABLET PO (08:59)
[2025-02-21] MEDS: amLODIPine BESYLATE 5 MG TABLET PO (08:59)
[2025-02-21] MEDS: ENOXAPARIN 40 MG/0.4 ML SYRINGE SUB-Q (09:01)
--- NOTE | 2025-02-21 09:52 | PM.PNCARD ---
Progress Note: A&P Assessment and Plan (1) Preop cardiovascular exam: Code(s): Z01.810 - Encounter for preprocedural cardiovascular examination Status: Acute Assessment and Plan: He can perform greater than 4 metabolic equivalents although he does things quite slowly. She does not have any chest pain or heart failure symptoms but he does have a history of issues while in the OR in the past resulting in an aborted ENT procedure ICU reportedly became pulseless due to drop in BP. Given his frequent PVCs, previously abnormal stress test, and past OR issues, I think it is reasonable to pursue a Lexiscan stress test prior to giving perioperative risk stratification. Echocardiogram recently performed which is unremarkable. No need to repeat. (2) CAD (coronary artery disease): Qualifiers: Coronary Disease-Associated Artery/Lesion type: [place] artery [place] vs. transplanted heart: [place] heart Associated angina: without angina Qualified Code(s): I25.10 - Atherosclerotic heart disease of [place] coronary artery without angina pectoris Code(s): I25.10 - Atherosclerotic heart disease of [place] coronary artery without angina pectoris Status: Chronic Assessment and Plan: Continue aspirin, atorvastatin, lisinopril and carvedilol. Stress test tomorrow (3) Carotid stenosis: Qualifiers: Laterality: bilateral Qualified Code(s): I65.23 - Occlusion and stenosis of bilateral carotid arteries Code(s): I65.29 - Occlusion and stenosis of unspecified carotid artery Status: Chronic Assessment and Plan: At most moderate disease. 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 May need uptitration. Potassium today is 4.1. Subjective Date/time seen: 02/21/25 09:52 Interval history: 89-year-old admitted with dizziness, weakness found have cholecystitis. Date of service 02/21/2025: Preoperative evaluation to include a stress test to be performed tomorrow. Has no chest pain or shortness breath. Review of Systems Cardiovascular: Cardiovascular: Denies chest pain Respiratory: Respiratory: Denies dyspnea Musculoskeletal: Musculoskeletal: Denies arthralgias Exam Narrative: Awake alert oriented appears stated age Const: General: comfortable and no acute distress HENMT: Face/Nose/Sinus: Normal nares present Mouth: Yes moist mucous membranes Eyes: General: appearance normal, both eyes and all related structures Sclera: sclerae normal Pupils: Equal, round and reactive pupils present Neck: Neck: supple and no JVD Thyroid: thyroid normal Carotids: bruit Other: Bilateral carotid endarterectomy scars noted Chest: Other: No reproducible chest wall pain to palpation Resp: Effort & Inspection: normal respiratory effort Auscultation: clear to auscultation bilaterally Cardio: Rate: regular rate Rhythm: regular rhythm Heart sounds: Murmur heart sound present Other: 2/6 systolic ejection murmur at base GI: Inspection: non-distended GI Palp: Yes Soft to palpation Auscultation: normal bowel sounds Skin: General skin exam: normal color and no rashes or lesions noted Neuro: Cognition (Neuro): normal cognition Speech: normal speech Sensory Exam: normal sensation Extrem: General: normal to inspection and no edema Psych: Mental Status: mental status grossly normal Affect: normal affect Objective Data Vital Signs Vital Signs: Vital Signs - 24 hr 02/20/25 10:45 02/20/25 10:50 02/20/25 10:54 Temperature Pulse Rate 59 L 65 72 Respiratory Rate Blood Pressure 136/51 L 119/51 L 105/49 L Pulse Oximetry Oxygen Delivery 02/20/25 12:00 02/20/25 14:42 02/20/25 15:52 Temperature 36.7 C Pulse Rate 59 L 52 L Respiratory Rate 12 Blood Pressure 124/43 L Pulse Oximetry 97 Oxygen Delivery Room Air 02/20/25 16:00 02/20/25 20:00 02/20/25 20:00 Temperature Pulse Rate 51 L 59 L Respiratory Rate Blood Pressure Pulse Oximetry Oxygen Delivery Room Air 02/20/25 20:45 02/20/25 21:52 02/21/25 00:00 Temperature 36.4 C Pulse Rate 60 60 68 Respiratory Rate 20 Blood Pressure 126/40 L Pulse Oximetry 95 Oxygen Delivery 02/21/25 04:00 02/21/25 06:00 02/21/25 08:59 Temperature 36.9 C Pulse Rate 55 L 54 L 58 L Respiratory Rate 20 Blood Pressure 133/49 L Pulse Oximetry 97 Oxygen Delivery Intake/Output Intake/Output: Intake & Output 02/18/25 02/19/25 02/20/25 02/21/25 23:59 23:59 23:59 23:59 Intake Total 1200 880 50 Output Total 450 850 375 300 Balance -450 350 505 -250 Meds/Results Medications: Active Medications Generic Name Dose Route Start Last Admin Trade Name Freq PRN Reason Stop Dose Admin Acetaminophen 650 mg 02/18/25 19:25 Acetaminophen 325 Mg Tablet PO Q4H PRN Mild Pain (1-3) or Fever Hydrocodone Bitart/Acetaminophen 1 tab 02/18/25 19:25 Hydrocodone/Acetaminophen (*Crx) 5-325 Mg Tablet PO Q6H PRN Pain Rated 4-6 Amlodipine Besylate 5 mg 02/19/25 09:00 02/21/25 08:59 Amlodipine Besylate 5 Mg Tablet PO 5 mg QAM LIZA Administration Aspirin 325 mg 02/19/25 21:00 02/20/25 20:44 Aspirin 325 Mg Tablet PO 325 mg HS LIZA Administration Atorvastatin Calcium 80 mg 02/18/25 22:00 02/18/25 22:15 Atorvastatin 40 Mg Tablet PO 80 mg QPM LIZA Administration Calcium Carbonate 200 mg 02/19/25 20:41 02/20/25 20:44 Calcium Carbonate (Tums) 500 Mg (200 Mg Elemental) PO 200 mg Q6H PRN Administration Indigestion Carvedilol 6.25 mg 02/19/25 09:00 02/21/25 08:59 Carvedilol 6.25 Mg Tablet PO 6.25 mg Q12HR LIZA Administration Dextrose 12.5 gm 02/18/25 21:54 Dextrose 50% 25 Gm/50 Ml Syringe IV PUSH PRN PRN Hypoglycemia Protocol Enoxaparin Sodium 40 mg 02/21/25 09:00 02/21/25 09:01 Enoxaparin 40 Mg/0.4 Ml Syringe SUB-Q 40 mg DAILY LIZA Administration Glucagon 1 mg 02/18/25 21:54 Glucagon For Inj 1 Mg Vial IM PRN PRN Hypoglycemia Protocol Glucose 15 gm 02/18/25 21:54 Glucose Oral Gel 15 Gm Of Glucse In 37.5 Gm Tube PO PRN PRN Hypoglycemia Protocol Dextrose 1,000 mls @ 100 mls/hr 02/18/25 21:54 Dextrose 5% 1,000 Ml IVPB PRN PRN Hypoglycemia Protocol Piperacillin/Tazobactam/Dextrose 3.375 gm in 50 mls @ 100 mls/hr 02/19/25 06:00 02/21/25 05:02 Zosyn 3.375 Gm/Ns 50 Ml IVPB 100 mls/hr Q6H LIZA Administration Insulin Aspart 2 - 5 units 02/19/25 00:00 02/21/25 06:10 Insulin Aspart (*Bkc) 100 Units/Ml SUB-Q Not Given Q6HR LIZA Protocol Lisinopril 40 mg 02/19/25 09:00 02/21/25 09:02 Lisinopril 20 Mg Tablet PO Not Given DAILY LIZA Ondansetron HCl 4 mg 02/18/25 19:25 Ondansetron Inj 4 Mg/2 Ml Vial IV PUSH Q6H PRN Nausea And Vomiting Pantoprazole Sodium 40 mg 02/19/25 09:00 02/21/25 08:59 Pantoprazole 40 Mg Tablet PO 40 mg QAM LIZA Administration Vitamin D 1,000 units 02/19/25 09:00 02/21/25 08:59 Cholecalciferol 1,000 Units Tablet PO 1,000 units DAILY LIZA Administration Radiology Results: ITS Impressions Carotid Doppler Study 02/19/25 12:33 IMPRESSION: 1. Less than 50% stenosis in the right internal carotid artery by sonographic criteria. 2. 50-69% stenosis in the left internal carotid artery by sonographic criteria. Abdomen Ultrasound 02/19/25 12:51 IMPRESSION: 1: Cholelithiasis with gallbladder wall thickening. Consider cholecystitis in the appropriate clinical setting. Hepatobiliary Scan Nuclear Medicine 02/19/25 13:02 IMPRESSION: 1. No evident gallbladder activity including in the 30 minutes following following morphine administration consistent with acute cholecystitis. Labs Labs: Laboratory Results - last 24 hr 02/20/25 02/20/25 02/21/25 11:56 18:11 00:02 WBC RBC Hgb Hct MCV MCH MCHC RDW Plt Count MPV Sodium Potassium Chloride Carbon Dioxide Anion Gap BUN Creatinine Estim Creat Clear Calc Estimated GFR Glucose POC Capillary Glucose 115 H 205 H 95 Calcium Total Bilirubin AST ALT Alkaline Phosphatase Total Protein Albumin 02/21/25 05:14 WBC 6.3 RBC 3.83 L Hgb 11.9 L Hct 37.2 L MCV 97.1 MCH 31.1 MCHC 32.0 RDW 11.9 Plt Count 173 MPV 12.1 H Sodium 138 Potassium 4.1 Chloride 103 Carbon Dioxide 27 Anion Gap 8 BUN 17 Creatinine 0.79 Estim Creat Clear Calc 55 Estimated GFR > 60 Glucose 112 H POC Capillary Glucose Calcium 8.5 Total Bilirubin 0.8 AST 33 ALT 43 Alkaline Phosphatase 54 Total Protein 7.0 Albumin 3.6 Quality VTE Prophylaxis VTE prophylaxis: pharmacologic ordered
[2025-02-21 11:43] LABS: Glucose Point of Care 190 mg/dl (65-105)
--- NOTE | 2025-02-21 12:52 | P.PNIM_ITS ---
Progress Note: A&P Assessment and Plan (1) Near syncope: Code(s): R55 - Syncope and collapse Status: Acute (2) Cholecystitis with cholelithiasis: Qualifiers: Cholelithiasis location: gallbladder Cholecystitis acuity: acute and chronic Biliary obstruction: without biliary obstruction Qualified Code(s): K80.12 - Calculus of gallbladder with acute and chronic cholecystitis without obstruction Code(s): K80.10 - Calculus of gallbladder with chronic cholecystitis without obstruction Status: Chronic (3) Hypertension: Qualifiers: Hypertension type: primary hypertension Qualified Code(s): I10 - Essential (primary) hypertension Code(s): I10 - Essential (primary) hypertension Status: Acute (4) Type 2 diabetes mellitus: Code(s): E11.9 - Type 2 diabetes mellitus without complications Status: Acute Plan Acute cholecystitis Hida scan and abd US concerning for acute cholecystitis. transaminitis improving zosyn NPO on Saturday for stress test surgery team on board continue to monitor pre syncope recent echo LVEf 65% Carotid US showed 50-69% stenosis in the left internal carotid artery Pt/OT pending DM2 SSI and accu chesks hold metformin continue to monitor HTN coreg, lisinopril CAD coreg, ASA, statin Subjective Date/time seen: 02/21/25 12:52 Interval history: per HPI: This is an 89-year-old male with history of nonobstructive coronary artery disease, hypertension, hyperlipidemia, gastroesophageal reflux disease, and type 2 diabetes mellitus who is being directly admitted to the medical floor from the emergency department at the [facility] for further evaluation of near-syncope and possible cholecystitis. The last several years he has had intermittent episodes of lightheadedness and dizziness which he has attributed to the fact that he is getting older. It has been worse this year and has been occurring daily for the past week or so. He seems to notice it when going from a seated to standing position and tells me that he feels lightheaded, almost as though he is going to pass out, short time thereafter. He also mentions that his legs feel weak during these episodes and that he feels as though his balance is off. He monitors his blood pressures at home and has noticed that the diastolic number is may be a bit lower than usual however his s ystolics are typically in the 130s to 140s and he has not noticed any change there. He has gradually lost weight over the years but nothing significant or recent. There have been no recent changes in medications. Luckily he has not had any falls and denies syncope, headache, overt vertigo, visual changes, focal weakness, paresthesias, and difficulties speaking and swallowing. He also denies chest and pleuritic pain, palpitations, and shortness of breath. While in the emergency department he had an episode of upper abdominal discomfort, almost like a fullness or squeezing sensation which he calls indigestion. With further questioning he admits to having similar symptoms on occasion, most notably after eating fatty or fried foods. He had a similar episode last week with 1 episode of nonbloody and nonbilious emesis. He denies fever, chills, sweats, current abdominal pain, vomiting today, diarrhea, and dysuria.. In fact he reports intermittent issues with constipation. In the ED: He was afebrile on arrival. Blood pressures were in the 170s to 180s systolic but have improved. Labs were significant for WBC count of 12.6, sodium 135, creatinine 0.63, glucose 145, lactic acid 0.8, lipase 74, and normal LFTs. No acute findings were noted on head CT. CT of the abdomen pelvis showed cholelithiasis with trace amount of pericholecystic fluid suspicious for acute cholecystitis and diffuse wall thickening of the bladder. He was given a dose of piperacillin-tazobactam and transfer was initiated to [place] for surgery consultation. At the time my evaluation he is resting comfortably and has no complaints aside from fact that he is hungry 02/19/25 Patient was seen and examined at bedside. he is feeling fine, denies any chest pain abd pain, nausea vomiting. Has transaminitis. hida scan and abd US concerning for acute cholecystitis. surgery team on board. CArtoid US showed 50-69% stenosis in the left internal carotid artery 02/21/25 patient was seen and examined at bedside. he is feeling fine, denies chest pain, SOB ,abd pain, Nausea vomiting. Hida scan positive. cardiology team on board plan for stress test on Saturday before surgery. Review of Systems Review of Systems: 12 systems were reviewed and are negativ e except for as per HPI. Exam Narrative: General: Well-developed, nontoxic-appearing gentleman sitting up in bed in no acute distress. Weight: 70.8 kg. BMI: 26.4. HEENT: PERRL, EOMI. Sclera anicteric. Tacky mucous membranes. Neck: Supple. Respiratory: Lungs are clear to auscultation bilaterally. Cardiovascular: Regular rate and rhythm with S1-S2. Soft systolic murmur at the upper sternal border. Gastrointestinal: Abdomen is soft, nontender, and nondistended with positive bowel sounds. Negative Barker sign. Bladder feels a bit distended. Skin: Warm and dry. No rash or lesions on limited exam. Extremities: No cyanosis, clubbing, or edema. Radial and pedal pulses intact. Neurological: Alert. Cranial nerves 2-12 are grossly intact. No gross focal deficits to casual conversation. Psychiatric: Pleasant and cooperative with normal mood and affect. Judgment and insight intact. Objective Data Vital Signs Vital Signs: Vital Signs - 24 hr 02/20/25 14:42 02/20/25 15:52 02/20/25 16:00 Temperature 98.1 F Pulse Rate 52 L 51 L Respiratory Rate 12 Blood Pressure 124/43 L Pulse Oximetry 97 Oxygen Delivery Room Air 02/20/25 20:00 02/20/25 20:00 02/20/25 20:45 Temperature Pulse Rate 59 L 60 Respiratory Rate Blood Pressure Pulse Oximetry Oxygen Delivery Room Air 02/20/25 21:52 02/21/25 00:00 02/21/25 04:00 Temperature 97.6 F Pulse Rate 60 68 55 L Respiratory Rate 20 Blood Pressure 126/40 L Pulse Oximetry 95 Oxygen Delivery 02/21/25 06:00 02/21/25 08:00 02/21/25 08:00 Temperature 98.5 F Pulse Rate 54 L 55 L Respiratory Rate 20 Blood Pressure 133/49 L Pulse Oximetry 97 Oxygen Delivery Room Air 02/21/25 08:59 02/21/25 12:00 Temperature Pulse Rate 58 L 55 L Respiratory Rate Blood Pressure Pulse Oximetry Oxygen Delivery Intake/Output Intake/Output: Intake & Output 02/18/25 02/19/25 02/20/25 02/21/25 23:59 23:59 23:59 23:59 Intake Total 1200 880 340 Output Total 450 850 375 300 Balance -450 350 505 40 Meds/Results Medications: Active Medications Generic Name Dose Route Start Last Admin Trade Name Freq PRN Reason Stop Dose Admin Acetaminophen 650 mg 02/18/25 19:25 Acetaminophen 325 Mg Tablet PO Q4H PRN Mild Pain (1-3) or Fever Hydrocodone Bitart/Acetaminophen 1 tab 02/18/25 19:25 Hydrocodone/Acetaminophen (*Crx) 5-325 Mg Tablet PO Q6H PRN Pain Rated 4-6 Amlodipine Besylate 5 mg 02/19/25 09:00 02/21/25 08:59 Amlodipine Besylate 5 Mg Tablet PO 5 mg QAM [facility] Administration Aspirin 325 mg 02/19/25 21:00 02/20/25 20:44 Aspirin 325 Mg Tablet PO 325 mg HS [facility] Administration Atorvastatin Calcium 80 mg 02/18/25 22:00 02/18/25 22:15 Atorvastatin 40 Mg Tablet PO 80 mg QPM [facility] Administration Calcium Carbonate 200 mg 02/19/25 20:41 02/20/25 20:44 Calcium Carbonate (Tums) 500 Mg (200 Mg Elemental) PO 200 mg Q6H PRN Administration Indigestion Carvedilol 6.25 mg 02/19/25 09:00 02/21/25 08:59 Carvedilol 6.25 Mg Tablet PO 6.25 mg Q12HR [facility] Administration Dextrose 12.5 gm 02/18/25 21:54 Dextrose 50% 25 Gm/50 Ml Syringe IV PUSH PRN PRN Hypoglycemia Protocol Enoxaparin Sodium 40 mg 02/21/25 09:00 02/21/25 09:01 Enoxaparin 40 Mg/0.4 Ml Syringe SUB-Q 40 mg DAILY [facility] Administration Glucagon 1 mg 02/18/25 21:54 Glucagon For Inj 1 Mg Vial IM PRN PRN Hypoglycemia Protocol Glucose 15 gm 02/18/25 21:54 Glucose Oral Gel 15 Gm Of Glucse In 37.5 Gm Tube PO PRN PRN Hypoglycemia Protocol Dextrose 1,000 mls @ 100 mls/hr 02/18/25 21:54 Dextrose 5% 1,000 Ml IVPB PRN PRN Hypoglycemia Protocol Piperacillin/Tazobactam/Dextrose 3.375 gm in 50 mls @ 100 mls/hr 02/19/25 06:00 02/21/25 12:38 Zosyn 3.375 Gm/Ns 50 Ml IVPB 100 mls/hr Q6H [facility] Administration Insulin Aspart 2 - 5 units 02/19/25 00:00 02/21/25 12:32 Insulin Aspart (*Bkc) 100 Units/Ml SUB-Q Not Given Q6HR [facility] Protocol Lisinopril 40 mg 02/19/25 09:00 02/21/25 09:02 Lisinopril 20 Mg Tablet PO Not Given DAILY [facility] Ondansetron HCl 4 mg 02/18/25 19:25 Ondansetron Inj 4 Mg/2 Ml Vial IV PUSH Q6H PRN Nausea And Vomiting Pantoprazole Sodium 40 mg 02/19/25 09:00 02/21/25 08:59 Pantoprazole 40 Mg Tablet PO 40 mg QAM [facility] Administration Vitamin D 1,000 units 02/19/25 09:00 02/21/25 08:59 Cholecalciferol 1,000 Units Tablet PO 1,000 units DAILY [facility] Administration Radiology Results: ITS Impressions Carotid Doppler Study 02/19/25 12:33 IMPRESSION: 1. Less than 50% stenosis in the right internal carotid artery by sonographic criteria. 2. 50-69% stenosis in the left internal carotid artery by sonographic criteria. Abdomen Ultrasound 02/19/25 12:51 IMPRESSION: 1: Cholelithiasis with gallbladder wall thickening. Consider cholecystitis in the appropriate clinical setting. Hepatobiliary Scan Nuclear Medicine 02/19/25 13:02 IMPRESSION: 1. No evident gallbladder activity including in the 30 minutes following following morphine administration consistent with acute cholecystitis. Labs Labs: Laboratory Results - last 24 hr 02/20/25 02/21/25 02/21/25 18:11 00:02 05:14 WBC 6.3 RBC 3.83 L Hgb 11.9 L Hct 37.2 L MCV 97.1 MCH 31.1 MCHC 32.0 RDW 11.9 Plt Count 173 MPV 12.1 H Sodium 138 Potassium 4.1 Chloride 103 Carbon Dioxide 27 Anion Gap 8 BUN 17 Creatinine 0.79 Estim Creat Clear Calc 55 Estimated GFR > 60 Glucose 112 H POC Capillary Glucose 205 H 95 Calcium 8.5 Total Bilirubin 0.8 AST 33 ALT 43 Alkaline Phosphatase 54 Total Protein 7.0 Albumin 3.6 02/21/25 11:21 WBC RBC Hgb Hct MCV MCH MCHC RDW Plt Count MPV Sodium Potassium Chloride Carbon Dioxide Anion Gap BUN Creatinine Estim Creat Clear Calc Estimated GFR Glucose POC Capillary Glucose 190 H Calcium Total Bilirubin AST ALT Alkaline Phosphatase Total Protein Albumin Quality VTE Prophylaxis VTE prophylaxis: mechanical ordered
--- NOTE | 2025-02-21 14:28 | PM.PNGS ---
Progress Note: A&P Assessment and Plan (1) Cholecystitis with cholelithiasis: Qualifiers: Cholelithiasis location: gallbladder Cholecystitis acuity: acute and chronic Biliary obstruction: without biliary obstruction Qualified Code(s): K80.12 - Calculus of gallbladder with acute and chronic cholecystitis without obstruction Code(s): K80.10 - Calculus of gallbladder with chronic cholecystitis without obstruction Status: Chronic Assessment and Plan: Pain better on low-fat diet. Patient expressing some desire to go home and come back for surgery. Will get Lexiscan tomorrow and, if negative, hopefully proceed with laparoscopic cholecystectomy soon thereafter. (2) CAD (coronary artery disease): Qualifiers: Coronary Disease-Associated Artery/Lesion type: [place] artery [place] vs. transplanted heart: [place] heart Associated angina: without angina Qualified Code(s): I25.10 - Atherosclerotic heart disease of [place] coronary artery without angina pectoris Code(s): I25.10 - Atherosclerotic heart disease of [place] coronary artery without angina pectoris Status: Chronic Assessment and Plan: Dr. Keiry Miguel evaluation appreciated. To have Lexiscan tomorrow. Subjective Subjective Date/Time Seen: 02/21/25 14:28 Patient reports: no new complaints, pain is less (Not having any pain) and tolerating a regular diet (Tolerating low-fat diet) Review of Systems Review of Systems: All systems reviewed & are unremarkable except as noted in HPI and below (HPI) Exam Const: General: healthy appearing, alert and awake GI: Inspection: non-distended GI Palp: Yes Soft to palpation and No Tenderness to palpation present (GI) Objective Data Vital Signs Vital Signs: Vital Signs - 24 hr 02/20/25 14:42 02/20/25 15:52 02/20/25 16:00 Temperature 36.7 C Pulse Rate 52 L 51 L Respiratory Rate 12 Blood Pressure 124/43 L Pulse Oximetry 97 Oxygen Delivery Room Air 02/20/25 20:00 02/20/25 20:00 02/20/25 20:45 Temperature Pulse Rate 59 L 60 Respiratory Rate Blood Pressure Pulse Oximetry Oxygen Delivery Room Air 02/20/25 21:52 02/21/25 00:00 02/21/25 04:00 Temperature 36.4 C Pulse Rate 60 68 55 L Respiratory Rate 20 Blood Pressure 126/40 L Pulse Oximetry 95 Oxygen Delivery 02/21/25 06:00 02/21/25 08:00 02/21/25 08:00 Temperature 36.9 C Pulse Rate 54 L 55 L Respiratory Rate 20 Blood Pressure 133/49 L Pulse Oximetry 97 Oxygen Delivery Room Air 02/21/25 08:59 02/21/25 12:00 Temperature Pulse Rate 58 L 55 L Respiratory Rate Blood Pressure Pulse Oximetry Oxygen Delivery Intake/Output Intake/Output: Intake & Output 02/18/25 02/19/25 02/20/25 02/21/25 23:59 23:59 23:59 23:59 Intake Total 1200 880 580 Output Total 450 850 375 300 Balance -450 350 505 280 Meds/Results Medications: Active Medications Generic Name Dose Route Start Last Admin Trade Name Freq PRN Reason Stop Dose Admin Acetaminophen 650 mg 02/18/25 19:25 Acetaminophen 325 Mg Tablet PO Q4H PRN Mild Pain (1-3) or Fever Hydrocodone Bitart/Acetaminophen 1 tab 02/18/25 19:25 Hydrocodone/Acetaminophen (*Crx) 5-325 Mg Tablet PO Q6H PRN Pain Rated 4-6 Amlodipine Besylate 5 mg 02/19/25 09:00 02/21/25 08:59 Amlodipine Besylate 5 Mg Tablet PO 5 mg QAM [facility] Administration Aspirin 325 mg 02/19/25 21:00 02/20/25 20:44 Aspirin 325 Mg Tablet PO 325 mg HS [facility] Administration Atorvastatin Calcium 80 mg 02/18/25 22:00 02/18/25 22:15 Atorvastatin 40 Mg Tablet PO 80 mg QPM [facility] Administration Calcium Carbonate 200 mg 02/19/25 20:41 02/20/25 20:44 Calcium Carbonate (Tums) 500 Mg (200 Mg Elemental) PO 200 mg Q6H PRN Administration Indigestion Carvedilol 6.25 mg 02/19/25 09:00 02/21/25 08:59 Carvedilol 6.25 Mg Tablet PO 6.25 mg Q12HR [facility] Administration Dextrose 12.5 gm 02/18/25 21:54 Dextrose 50% 25 Gm/50 Ml Syringe IV PUSH PRN PRN Hypoglycemia Protocol Enoxaparin Sodium 40 mg 02/21/25 09:00 02/21/25 09:01 Enoxaparin 40 Mg/0.4 Ml Syringe SUB-Q 40 mg DAILY [facility] Administration Glucagon 1 mg 02/18/25 21:54 Glucagon For Inj 1 Mg Vial IM PRN PRN Hypoglycemia Protocol Glucose 15 gm 02/18/25 21:54 Glucose Oral Gel 15 Gm Of Glucse In 37.5 Gm Tube PO PRN PRN Hypoglycemia Protocol Dextrose 1,000 mls @ 100 mls/hr 02/18/25 21:54 Dextrose 5% 1,000 Ml IVPB PRN PRN Hypoglycemia Protocol Piperacillin/Tazobactam/Dextrose 3.375 gm in 50 mls @ 100 mls/hr 02/19/25 06:00 02/21/25 12:38 Zosyn 3.375 Gm/Ns 50 Ml IVPB 100 mls/hr Q6H [facility] Administration Insulin Aspart 2 - 5 units 02/19/25 00:00 02/21/25 12:32 Insulin Aspart (*Bkc) 100 Units/Ml SUB-Q Not Given Q6HR [facility] Protocol Lisinopril 40 mg 02/19/25 09:00 02/21/25 09:02 Lisinopril 20 Mg Tablet PO Not Given DAILY [facility] Ondansetron HCl 4 mg 02/18/25 19:25 Ondansetron Inj 4 Mg/2 Ml Vial IV PUSH Q6H PRN Nausea And Vomiting Pantoprazole Sodium 40 mg 02/19/25 09:00 02/21/25 08:59 Pantoprazole 40 Mg Tablet PO 40 mg QAM [facility] Administration Vitamin D 1,000 units 02/19/25 09:00 02/21/25 08:59 Cholecalciferol 1,000 Units Tablet PO 1,000 units DAILY [facility] Administration Radiology Results: ITS Impressions Carotid Doppler Study 02/19/25 12:33 IMPRESSION: 1. Less than 50% stenosis in the right internal carotid artery by sonographic criteria. 2. 50-69% stenosis in the left internal carotid artery by sonographic criteria. Abdomen Ultrasound 02/19/25 12:51 IMPRESSION: 1: Cholelithiasis with gallbladder wall thickening. Consider cholecystitis in the appropriate clinical setting. Hepatobiliary Scan Nuclear Medicine 02/19/25 13:02 IMPRESSION: 1. No evident gallbladder activity including in the 30 minutes following following morphine administration consistent with acute cholecystitis. Labs Labs: Laboratory Results - last 24 hr 02/20/25 02/21/25 02/21/25 18:11 00:02 05:14 WBC 6.3 RBC 3.83 L Hgb 11.9 L Hct 37.2 L MCV 97.1 MCH 31.1 MCHC 32.0 RDW 11.9 Plt Count 173 MPV 12.1 H Sodium 138 Potassium 4.1 Chloride 103 Carbon Dioxide 27 Anion Gap 8 BUN 17 Creatinine 0.79 Estim Creat Clear Calc 55 Estimated GFR > 60 Glucose 112 H POC Capillary Glucose 205 H 95 Calcium 8.5 Total Bilirubin 0.8 AST 33 ALT 43 Alkaline Phosphatase 54 Total Protein 7.0 Albumin 3.6 02/21/25 11:21 WBC RBC Hgb Hct MCV MCH MCHC RDW Plt Count MPV Sodium Potassium Chloride Carbon Dioxide Anion Gap BUN Creatinine Estim Creat Clear Calc Estimated GFR Glucose POC Capillary Glucose 190 H Calcium Total Bilirubin AST ALT Alkaline Phosphatase Total Protein Albumin
[2025-02-21 18:27] LABS: Glucose Point of Care 124 mg/dl (65-105)
[2025-02-21] MEDS: ASPIRIN 325 MG TABLET PO (21:10)
[2025-02-21 23:09] LABS: Glucose Point of Care 127 mg/dl (65-105)
[2025-02-22] VITALS (17 sets, daily range): BP systolic 142–198; BP diastolic 50–75; PULSE 51–79; RESP 16–20; TEMP 35.8–36.6; O2SAT 92–100
[2025-02-22] MEDS: PIPERACILLN/TAZ 3.375GM/NS50ML 3.375 GM/50 ML BAG IVPB ×3 (04:55→23:15)
[2025-02-22 06:31] LABS: Hematocrit 37.2 % (42.0-52.0); Hemoglobin 12.2 g/dL (14.0-18.0); Mean Corpuscular HGB Conc 32.8 g/dl (32-36); Mean Corpuscular Hemoglobin 31.4 pg (26-34); Mean Corpuscular Volume 95.9 fl (80-100); Mean Platelet Volume 11.9 fl (7.4-10.4); Platelet Count Result 193 k/mm3 (150-375); Red Blood Count 3.88 M/mm3 (4.6-6.20); Red Cell Distribution Width 11.9 % (11.5-14.5); White Blood Count 6.4 K/mm3 (4.5-10.0)
[2025-02-22 06:47] LABS: Alanine Aminotransferase 35 U/L (6-50); Albumin Level 3.6 g/dL (3.5-5.1); Alkaline Phosphatase 53 U/L (38-126); Anion Gap 7 mmol/L (4-12); Aspartate Amino Transferase 30 U/L (17-59); Bilirubin,Total 0.7 mg/dL (0.2-1.3); Blood Urea Nitrogen 7 mg/dL (9-20); Calcium 8.2 mg/dL (8.4-10.2); Carbon Dioxide 26 mmol/L (22-30); Chloride 105 mmol/L (98-107); Estimated CRCL calculation 63 ml/min; Estimated Glomerular Filt Rate > 60; Glucose 114 mg/dL (65-110); Potassium 3.5 mmol/L (3.4-5.0); Sodium 138 mmol/L (137-145)
--- NOTE | 2025-02-22 07:27 | PM.PNGS ---
Progress Note: A&P Assessment and Plan (1) Cholecystitis with cholelithiasis: Qualifiers: Cholelithiasis location: gallbladder Cholecystitis acuity: acute and chronic Biliary obstruction: without biliary obstruction Qualified Code(s): K80.12 - Calculus of gallbladder with acute and chronic cholecystitis without obstruction Code(s): K80.10 - Calculus of gallbladder with chronic cholecystitis without obstruction Status: Chronic Assessment and Plan: If Lexiscan is negative, proceed with laparoscopic cholecystectomy around 4:00 p.m. today. (2) CAD (coronary artery disease): Qualifiers: Coronary Disease-Associated Artery/Lesion type: [place] artery [place] vs. transplanted heart: [place] heart Associated angina: without angina Qualified Code(s): I25.10 - Atherosclerotic heart disease of [place] coronary artery without angina pectoris Code(s): I25.10 - Atherosclerotic heart disease of [place] coronary artery without angina pectoris Status: Chronic Subjective Subjective Date/Time Seen: 02/22/25 07:27 Patient reports: no new complaints, feels better, tolerating a regular diet and afebrile Exam Const: General: comfortable GI: Inspection: non-distended and scaphoid GI Palp: Yes Soft to palpation and No Tenderness to palpation present (GI) Objective Data Vital Signs Vital Signs: Vital Signs - 24 hr 02/21/25 08:00 02/21/25 08:00 02/21/25 08:59 Temperature Pulse Rate 55 L 58 L Respiratory Rate Blood Pressure Pulse Oximetry Oxygen Delivery Room Air 02/21/25 12:00 02/21/25 15:14 02/21/25 16:00 Temperature 36.2 C L Pulse Rate 55 L 52 L 54 L Respiratory Rate 20 Blood Pressure 141/54 H Pulse Oximetry 96 Oxygen Delivery 02/21/25 20:00 02/21/25 20:00 02/21/25 20:40 Temperature 36.1 C L Pulse Rate 56 L 51 L Respiratory Rate 20 Blood Pressure 142/65 H Pulse Oximetry 98 Oxygen Delivery Room Air 02/22/25 00:00 02/22/25 04:00 02/22/25 05:00 Temperature 35.8 C L Pulse Rate 54 L 66 56 L Respiratory Rate 18 Blood Pressure 142/50 H Pulse Oximetry 96 Oxygen Delivery Intake/Output Intake/Output: Intake & Output 02/19/25 02/20/25 02/21/25 02/22/25 23:59 23:59 23:59 23:59 Intake Total 7672 063 2077 250 Output Total 850 375 300 Balance 688 840 2185 250 Meds/Results Medications: Active Medications Generic Name Dose Route Start Last Admin Trade Name Freq PRN Reason Stop Dose Admin Acetaminophen 650 mg 02/18/25 19:25 Acetaminophen 325 Mg Tablet PO Q4H PRN Mild Pain (1-3) or Fever Hydrocodone Bitart/Acetaminophen 1 tab 02/18/25 19:25 Hydrocodone/Acetaminophen (*Crx) 5-325 Mg Tablet PO Q6H PRN Pain Rated 4-6 Amlodipine Besylate 5 mg 02/19/25 09:00 02/21/25 08:59 Amlodipine Besylate 5 Mg Tablet PO 5 mg QAM [facility] Administration Aspirin 325 mg 02/19/25 21:00 02/21/25 21:10 Aspirin 325 Mg Tablet PO 325 mg HS [facility] Administration Atorvastatin Calcium 80 mg 02/18/25 22:00 02/18/25 22:15 Atorvastatin 40 Mg Tablet PO 80 mg QPM [facility] Administration Calcium Carbonate 200 mg 02/19/25 20:41 02/20/25 20:44 Calcium Carbonate (Tums) 500 Mg (200 Mg Elemental) PO 200 mg Q6H PRN Administration Indigestion Carvedilol 6.25 mg 02/19/25 09:00 02/21/25 22:42 Carvedilol 6.25 Mg Tablet PO Not Given Q12HR [facility] Dextrose 12.5 gm 02/18/25 21:54 Dextrose 50% 25 Gm/50 Ml Syringe IV PUSH PRN PRN Hypoglycemia Protocol Enoxaparin Sodium 40 mg 02/21/25 09:00 02/21/25 09:01 Enoxaparin 40 Mg/0.4 Ml Syringe SUB-Q 40 mg DAILY [facility] Administration Glucagon 1 mg 02/18/25 21:54 Glucagon For Inj 1 Mg Vial IM PRN PRN Hypoglycemia Protocol Glucose 15 gm 02/18/25 21:54 Glucose Oral Gel 15 Gm Of Glucse In 37.5 Gm Tube PO PRN PRN Hypoglycemia Protocol Dextrose 1,000 mls @ 100 mls/hr 02/18/25 21:54 Dextrose 5% 1,000 Ml IVPB PRN PRN Hypoglycemia Protocol Piperacillin/Tazobactam/Dextrose 3.375 gm in 50 mls @ 100 mls/hr 02/19/25 06:00 02/22/25 04:55 Zosyn 3.375 Gm/Ns 50 Ml IVPB 100 mls/hr Q6H [facility] Administration Insulin Aspart 2 - 5 units 02/19/25 00:00 02/22/25 06:48 Insulin Aspart (*Bkc) 100 Units/Ml SUB-Q Not Given Q6HR [facility] Protocol Lisinopril 40 mg 02/19/25 09:00 02/21/25 09:02 Lisinopril 20 Mg Tablet PO Not Given DAILY [facility] Ondansetron HCl 4 mg 02/18/25 19:25 Ondansetron Inj 4 Mg/2 Ml Vial IV PUSH Q6H PRN Nausea And Vomiting Pantoprazole Sodium 40 mg 02/19/25 09:00 02/21/25 08:59 Pantoprazole 40 Mg Tablet PO 40 mg QAM [facility] Administration Vitamin D 1,000 units 02/19/25 09:00 02/21/25 08:59 Cholecalciferol 1,000 Units Tablet PO 1,000 units DAILY [facility] Administration Radiology Results: ITS Impressions Carotid Doppler Study 02/19/25 12:33 IMPRESSION: 1. Less than 50% stenosis in the right internal carotid artery by sonographic criteria. 2. 50-69% stenosis in the left internal carotid artery by sonographic criteria. Abdomen Ultrasound 02/19/25 12:51 IMPRESSION: 1: Cholelithiasis with gallbladder wall thickening. Consider cholecystitis in the appropriate clinical setting. Hepatobiliary Scan Nuclear Medicine 02/19/25 13:02 IMPRESSION: 1. No evident gallbladder activity including in the 30 minutes following following morphine administration consistent with acute cholecystitis. Labs Labs: Laboratory Results - last 24 hr 02/21/25 02/21/25 02/21/25 11:21 18:17 23:00 WBC RBC Hgb Hct MCV MCH MCHC RDW Plt Count MPV Sodium Potassium Chloride Carbon Dioxide Anion Gap BUN Creatinine Estim Creat Clear Calc Estimated GFR Glucose POC Capillary Glucose 190 H 124 H 127 H Calcium Total Bilirubin AST ALT Alkaline Phosphatase Total Protein Albumin 02/22/25 05:33 WBC 6.4 RBC 3.88 L Hgb 12.2 L Hct 37.2 L MCV 95.9 MCH 31.4 MCHC 32.8 RDW 11.9 Plt Count 193 MPV 11.9 H Sodium 138 Potassium 3.5 Chloride 105 Carbon Dioxide 26 Anion Gap 7 BUN 7 L D Creatinine 0.69 L Estim Creat Clear Calc 63 Estimated GFR > 60 Glucose 114 H POC Capillary Glucose Calcium 8.2 L Total Bilirubin 0.7 AST 30 ALT 35 Alkaline Phosphatase 53 Total Protein 7.0 Albumin 3.6
--- NOTE | 2025-02-22 08:48 | EST_ITS ---
Patient Info Name: Mark Patel Age: 89 years : 1935 Gender: Male Ht: 68 in Wt: 173 lbs BSA: 1.95 m2 Exam Date: 02/22/2025 8:48 AM Patient Status: I Admit Date: 02/20/2025 Exam Type: CA stress gideon w NM A regadenoson stress test was performed. Staff Referring Physician: Willard Ricci MD Attending Provider: Tessa Iglesias Nurse: Ivis See Summary 1. No abnormal ST-T wave changes with lexiscan. 2. Please correlate with nuclear medicine images, reported separately. Protocol: Lexiscan Stress ECG Details Stage: REST Duration (min): 0 min : 19 sec HR (bpm): 54 SBP (mmHg): --- DBP (mmHg): --- Stage: REST Duration (min): 1 min : 2 sec HR (bpm): 54 SBP (mmHg): --- DBP (mmHg): --- Stage: REST Duration (min): 7 min : 10 sec HR (bpm): 56 SBP (mmHg): 176 DBP (mmHg): 68 Stage: STAGE 1 Duration (min): 1 min : 0 sec HR (bpm): 60 SBP (mmHg): 176 DBP (mmHg): 68 Stage: RECOVERY Duration (min): 1 min : 0 sec HR (bpm): 70 SBP (mmHg): 167 DBP (mmHg): 58 Stage: RECOVERY Duration (min): 2 min : 0 sec HR (bpm): 68 SBP (mmHg): 167 DBP (mmHg): 58 Stage: RECOVERY Duration (min): 3 min : 0 sec HR (bpm): 70 SBP (mmHg): 152 DBP (mmHg): 63 Stage: RECOVERY Duration (min): 3 min : 3 sec HR (bpm): 69 SBP (mmHg): 152 DBP (mmHg): 63 Rest HR: 56 bpm Peak HR: 71 bpm Rest Sys BP: 176 mmHg Peak Sys BP: 167 mmHg Max Pred HR: 133 bpm % Max Pred HR: 53 % Target HR: 113 bpm Max RPP: 11,857 bpm*mmHg Total Time: 1 min : 0 sec Rest [place] BP: 68 mmHg Peak [place] BP: 58 mmHg Total Dose: 0.4 mg Resting ECG Sinus bradycardia with a ventricular rate of 54 beats per minute. 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 Stress ECG No ischemic EKG changes. Arrhythmias Occasional premature ventricular contractions. Report Signatures
[2025-02-22] MEDS: PANTOPRAZOLE 40 MG TABLET PO (09:09)
[2025-02-22] MEDS: carvediloL 6.25 MG TABLET PO ×2 (09:09→20:02)
[2025-02-22] MEDS: CHOLECALCIFEROL 1,000 UNITS TABLET 1000 UNITS PO (09:09)
[2025-02-22] MEDS: amLODIPine BESYLATE 5 MG TABLET PO (09:09)
[2025-02-22] MEDS: lisinopriL 20 MG TABLET 40 MG PO (09:09)
[2025-02-22 11:43] LABS: Glucose Point of Care 140 mg/dl (65-105)
--- NOTE | 2025-02-22 12:09 | P.PNIM_ITS ---
Progress Note: A&P Assessment and Plan (1) Near syncope: Code(s): R55 - Syncope and collapse Status: Acute (2) Cholecystitis with cholelithiasis: Qualifiers: Cholelithiasis location: gallbladder Cholecystitis acuity: acute and chronic Biliary obstruction: without biliary obstruction Qualified Code(s): K80.12 - Calculus of gallbladder with acute and chronic cholecystitis without obstruction Code(s): K80.10 - Calculus of gallbladder with chronic cholecystitis without obstruction Status: Chronic (3) Hypertension: Qualifiers: Hypertension type: primary hypertension Qualified Code(s): I10 - Essential (primary) hypertension Code(s): I10 - Essential (primary) hypertension Status: Acute (4) Type 2 diabetes mellitus: Code(s): E11.9 - Type 2 diabetes mellitus without complications Status: Acute Plan Acute cholecystitis Hida scan and abd US concerning for acute cholecystitis. transaminitis improving zosyn NPO for stress test and possible surgery at 4 PM surgery team on board continue to monitor pre syncope recent echo LVEf 65% Carotid US showed 50-69% stenosis in the left internal carotid artery Pt/OT pending DM2 SSI and accu chesks hold metformin continue to monitor HTN coreg, lisinopril CAD coreg, ASA, statin Subjective Date/time seen: 02/22/25 12:09 Interval history: per HPI: This is an 89-year-old male with history of nonobstructive coronary artery disease, hypertension, hyperlipidemia, gastroesophageal reflux disease, and type 2 diabetes mellitus who is being directly admitted to the medical floor from the emergency department at the [facility] for further evaluation of near-syncope and possible cholecystitis. The last several years he has had intermittent episodes of lightheadedness and dizziness which he has attributed to the fact that he is getting older. It has been worse this year and has been occurring daily for the past week or so. He seems to notice it when going from a seated to standing position and tells me that he feels lightheaded, almost as though he is going to pass out, short time thereafter. He also mentions that his legs feel weak during these episodes and that he feels as though his balance is off. He monitors his blood pressures at home and has noticed that the diastolic number is may be a bit lower than usual however his systolics are typically in the 130s to 140s and he has not noticed any change there. He has gradually lost weight over the years but nothing significant or recent. There have been no recent changes in medications. Luckily he has not had any falls and denies syncope, headache, overt vertigo, visual changes, focal weakness, paresthesias, and difficulties speaking and swallowing. He also denies chest and pleuritic pain, palpitations, and shortness of breath. While in the emergency department he had an episode of upper abdominal discomfort, almost like a fullness or squeezing sensation which he calls indigestion. With further questioning he admits to having similar symptoms on occasion, most notably after eating fatty or fried foods. He had a similar episode last week with 1 episode of nonbloody and nonbilious emesis. He denies fever, chills, sweats, current abdominal pain, vomiting today, diarrhea, and dysuria.. In fact he reports intermittent issues with constipation. In the ED: He was afebrile on arrival. Blood pressures were in the 170s to 180s systolic but have improved. Labs were significant for WBC count of 12.6, sodium 135, creatinine 0.63, glucose 145, lactic acid 0.8, lipase 74, and normal LFTs. No acute findings were noted on head CT. CT of the abdomen pelvis showed cholelithiasis with trace amount of pericholecystic fluid suspicious for acute cholecystitis and diffuse wall thickening of the bladder. He was given a dose of piperacillin-tazobactam and transfer was initiated to [place] for surgery co nsultation. At the time my evaluation he is resting comfortably and has no complaints aside from fact that he is hungry 02/19/25 Patient was seen and examined at bedside. he is feeling fine, denies any chest pain abd pain, nausea vomiting. Has transaminitis. hida scan and abd US concerning for acute cholecystitis. surgery team on board. CArtoid US showed 50-69% stenosis in the left internal carotid artery 02/21/25 patient was seen and examined at bedside. he is feeling fine, denies chest pain, SOB ,abd pain, Nausea vomiting. Hida scan positive. cardiology team on board plan for stress test on Saturday before surgery. 02/22/25 Patient was seen and examined at bedside. he is feeling fine. No acute event overnight. plan for stress test today and possible surgery at 4 Pm. Review of Systems Review of Systems: 12 systems were reviewed and are negativ e except for as per HPI. Exam Narrative: General: Well-developed, nontoxic-appearing gentleman sitting up in bed in no acute distress. Weight: 70.8 kg. BMI: 26.4. HEENT: PERRL, EOMI. Sclera anicteric. Tacky mucous membranes. Neck: Supple. Respiratory: Lungs are clear to auscultation bilaterally. Cardiovascular: Regular rate and rhythm with S1-S2. Soft systolic murmur at the upper sternal border. Gastrointestinal: Abdomen is soft, nontender, and nondistended with positive bowel sounds. Negative Barker sign. Bladder feels a bit distended. Skin: Warm and dry. No rash or lesions on limited exam. Extremities: No cyanosis, clubbing, or edema. Radial and pedal pulses intact. Neurological: Alert. Cranial nerves 2-12 are grossly intact. No gross focal deficits to casual conversation. Psychiatric: Pleasant and cooperative with normal mood and affect. Judgment and insight intact. Objective Data Vital Signs Vital Signs: Vital Signs - 24 hr 02/21/25 15:14 02/21/25 16:00 02/21/25 20:00 Temperature 97.1 F L Pulse Rate 52 L 54 L Respiratory Rate 20 Blood Pressure 141/54 H Pulse Oximetry 96 Oxygen Delivery Room Air 02/21/25 20:00 02/21/25 20:40 02/22/25 00:00 Temperature 97 F L Pulse Rate 56 L 51 L 54 L Respiratory Rate 20 Blood Pressure 142/65 H Pulse Oximetry 98 Oxygen Delivery 02/22/25 04:00 02/22/25 05:00 Temperature 96.5 F L Pulse Rate 66 56 L Respiratory Rate 18 Blood Pressure 142/50 H Pulse Oximetry 96 Oxygen Delivery Intake/Output Intake/Output: Intake & Output 02/19/25 02/20/25 02/21/25 02/22/25 23:59 23:59 23:59 23:59 Intake Total 7979 317 0895 250 Output Total 850 375 300 Balance 856 514 4118 250 Meds/Results Medications: Active Medications Generic Name Dose Route Start Last Admin Trade Name Freq PRN Reason Stop Dose Admin Acetaminophen 650 mg 02/18/25 19:25 Acetaminophen 325 Mg Tablet PO Q4H PRN Mild Pain (1-3) or Fever Hydrocodone Bitart/Acetaminophen 1 tab 02/18/25 19:25 Hydrocodone/Acetaminophen (*Crx) 5-325 Mg Tablet PO Q6H PRN Pain Rated 4-6 Amlodipine Besylate 5 mg 02/19/25 09:00 02/22/25 09:09 Amlodipine Besylate 5 Mg Tablet PO 5 mg QAM LIZA Administration Aspirin 325 mg 02/19/25 21:00 02/21/25 21:10 Aspirin 325 Mg Tablet PO 325 mg HS LIZA Administration Atorvastatin Calcium 80 mg 02/18/25 22:00 02/18/25 22:15 Atorvastatin 40 Mg Tablet PO 80 mg QPM LIZA Administration Calcium Carbonate 200 mg 02/19/25 20:41 02/20/25 20:44 Calcium Carbonate (Tums) 500 Mg (200 Mg Elemental) PO 200 mg Q6H PRN Administration Indigestion Carvedilol 6.25 mg 02/19/25 09:00 02/22/25 09:09 Carvedilol 6.25 Mg Tablet PO 6.25 mg Q12HR LIZA Administration Dextrose 12.5 gm 02/18/25 21:54 Dextrose 50% 25 Gm/50 Ml Syringe IV PUSH PRN PRN Hypoglycemia Protocol Enoxaparin Sodium 40 mg 02/21/25 09:00 02/22/25 07:49 Enoxaparin 40 Mg/0.4 Ml Syringe SUB-Q Not Given DAILY LIZA Glucagon 1 mg 02/18/25 21:54 Glucagon For Inj 1 Mg Vial IM PRN PRN Hypoglycemia Protocol Glucose 15 gm 02/18/25 21:54 Glucose Oral Gel 15 Gm Of Glucse In 37.5 Gm Tube PO PRN PRN Hypoglycemia Protocol Dextrose 1,000 mls @ 100 mls/hr 02/18/25 21:54 Dextrose 5% 1,000 Ml IVPB PRN PRN Hypoglycemia Protocol Piperacillin/Tazobactam/Dextrose 3.375 gm in 50 mls @ 100 mls/hr 02/19/25 06:00 02/22/25 04:55 Zosyn 3.375 Gm/Ns 50 Ml IVPB 100 mls/hr Q6H LIZA Administration Insulin Aspart 2 - 5 units 02/19/25 00:00 02/22/25 11:51 Insulin Aspart (*Bkc) 100 Units/Ml SUB-Q Not Given Q6HR [facility] Protocol Lisinopril 40 mg 02/19/25 09:00 02/22/25 09:09 Lisinopril 20 Mg Tablet PO 40 mg DAILY LIZA Administration Ondansetron HCl 4 mg 02/18/25 19:25 Ondansetron Inj 4 Mg/2 Ml Vial IV PUSH Q6H PRN Nausea And Vomiting Pantoprazole Sodium 40 mg 02/19/25 09:00 02/22/25 09:09 Pantoprazole 40 Mg Tablet PO 40 mg QAM LIZA Administration Vitamin D 1,000 units 02/19/25 09:00 02/22/25 09:09 Cholecalciferol 1,000 Units Tablet PO 1,000 units DAILY LIZA Administration Radiology Results: ITS Impressions Carotid Doppler Study 02/19/25 12:33 IMPRESSION: 1. Less than 50% stenosis in the right internal carotid artery by sonographic criteria. 2. 50-69% stenosis in the left internal carotid artery by sonographic criteria. Abdomen Ultrasound 02/19/25 12:51 IMPRESSION: 1: Cholelithiasis with gallbladder wall thickening. Consider cholecystitis in the appropriate clinical setting. Hepatobiliary Scan Nuclear Medicine 02/19/25 13:02 IMPRESSION: 1. No evident gallbladder activity including in the 30 minutes following following morphine administration consistent with acute cholecystitis. Chest X-Ray 02/22/25 11:59 IMPRESSION: Small left-sided pleural effusion, without focal infiltrate. Labs Labs: Laboratory Results - last 24 hr 02/21/25 02/21/25 02/22/25 18:17 23:00 05:33 WBC 6.4 RBC 3.88 L Hgb 12.2 L Hct 37.2 L MCV 95.9 MCH 31.4 MCHC 32.8 RDW 11.9 Plt Count 193 MPV 11.9 H Sodium 138 Potassium 3.5 Chloride 105 Carbon Dioxide 26 Anion Gap 7 BUN 7 L D Creatinine 0.69 L Estim Creat Clear Calc 63 Estimated GFR > 60 Glucose 114 H POC Capillary Glucose 124 H 127 H Calcium 8.2 L Total Bilirubin 0.7 AST 30 ALT 35 Alkaline Phosphatase 53 Total Protein 7.0 Albumin 3.6 Blood Type Antibody Screen 02/22/25 02/22/25 07:49 11:40 WBC RBC Hgb Hct MCV MCH MCHC RDW Plt Count MPV Sodium Potassium Chloride Carbon Dioxide Anion Gap BUN Creatinine Estim Creat Clear Calc Estimated GFR Glucose POC Capillary Glucose 140 H Calcium Total Bilirubin AST ALT Alkaline Phosphatase Total Protein Albumin Blood Type B Positive Antibody Screen Negative Quality VTE Prophylaxis VTE prophylaxis: mechanical ordered
--- NOTE | 2025-02-22 13:16 | PM.PNCARD ---
Progress Note: A&P Assessment and Plan (1) Preop cardiovascular exam: Code(s): Z01.810 - Encounter for preprocedural cardiovascular examination Status: Acute Assessment and Plan: He can perform greater than 4 metabolic equivalents although he does things quite slowly. She does not have any chest pain or heart failure symptoms but he does have a history of issues while in the OR in the past resulting in an aborted ENT procedure ICU reportedly became pulseless due to drop in BP. Given his frequent PVCs, previously abnormal stress test, and past OR issues, Lexiscan stress test performed today. Results pending. (2) CAD (coronary artery disease): Qualifiers: Coronary Disease-Associated Artery/Lesion type: [place] artery [place] vs. transplanted heart: [place] heart Associated angina: without angina Qualified Code(s): I25.10 - Atherosclerotic heart disease of [place] coronary artery without angina pectoris Code(s): I25.10 - Atherosclerotic heart disease of [place] coronary artery without angina pectoris Status: Chronic Assessment and Plan: Continue aspirin, atorvastatin, lisinopril and carvedilol. Stress test done - awaiting results (3) Carotid stenosis: Qualifiers: Laterality: bilateral Qualified Code(s): I65.23 - Occlusion and stenosis of bilateral carotid arteries Code(s): I65.29 - Occlusion and stenosis of unspecified carotid artery Status: Chronic Assessment and Plan: At most moderate disease. 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 May need uptitration. Potassium today is 3.5. Willgive 40 mEq KCL IV x 1 (NPO for surgery this afternoon). Subjective Date/time seen: 02/22/25 13:16 Interval history: 89-year-old admitted with dizziness, weakness found have cholecystitis. Date of service 02/21/2025: Preoperative evaluation to include a stress test to be performed tomorrow. Has no chest pain or shortness breath. 02/22/2025: Stress test performed. Tolerated well with no side effects. He denies chest pain, shortness of breath. Review of Systems Cardiovascular: Cardiovascular: Denies chest pain and Denies dyspnea Respiratory: Respiratory: Denies dyspnea Musculoskeletal: Musculoskeletal: Denies arthralgias Exam Narrative: Awake alert oriented appears stated age Const: General: comfortable and no acute distress HENMT: Face/Nose/Sinus: Normal nares present Mouth: Yes moist mucous membranes Eyes: General: appearance normal, both eyes and all related structures Sclera: sclerae normal Pupils: Equal, round and reactive pupils present Neck: Neck: supple and no JVD Thyroid: thyroid normal Carotids: bruit Other: Bilateral carotid endarterectomy scars noted Chest: Other: No reproducible chest wall pain to palpation Resp: Effort & Inspection: normal respiratory effort Auscultation: clear to auscultation bilaterally Cardio: Rate: regular rate Rhythm: regular rhythm Heart sounds: Murmur heart sound present Other: 2/6 systolic ejection murmur at base GI: Inspection: non-distended Auscultation: normal bowel sounds Skin: General skin exam: normal color and no rashes or lesions noted Neuro: Cranial nerves: Yes Equal, round and reactive pupils present Cognition (Neuro): normal cognition Speech: normal speech Sensory Exam: normal sensation Extrem: General: normal to inspection and no edema Psych: Mental Status: mental status grossly normal Affect: normal affect Objective Data Vital Signs Vital Signs: Vital Signs - 24 hr 02/21/25 15:14 02/21/25 16:00 02/21/25 20:00 Temperature 36.2 C L Pulse Rate 52 L 54 L Respiratory Rate 20 Blood Pressure 141/54 H Pulse Oximetry 96 Oxygen Delivery Room Air 02/21/25 20:00 02/21/25 20:40 02/22/25 00:00 Temperature 36.1 C L Pulse Rate 56 L 51 L 54 L Respiratory Rate 20 Blood Pressure 142/65 H Pulse Oximetry 98 Oxygen Delivery 02/22/25 04:00 02/22/25 05:00 02/22/25 08:00 Temperature 35.8 C L Pulse Rate 66 56 L Respiratory Rate 18 Blood Pressure 142/50 H Pulse Oximetry 96 Oxygen Delivery Room Air 02/22/25 08:00 02/22/25 12:00 Temperature Pulse Rate 53 L 51 L Respiratory Rate Blood Pressure Pulse Oximetry Oxygen Delivery Intake/Output Intake/Output: Intake & Output 02/19/25 02/20/25 02/21/25 02/22/25 23:59 23:59 23:59 23:59 Intake Total 2526 219 5709 250 Output Total 850 375 300 Balance 161 790 9745 250 Meds/Results Medications: Active Medications Generic Name Dose Route Start Last Admin Trade Name Freq PRN Reason Stop Dose Admin Acetaminophen 650 mg 02/18/25 19:25 Acetaminophen 325 Mg Tablet PO Q4H PRN Mild Pain (1-3) or Fever Hydrocodone Bitart/Acetaminophen 1 tab 02/18/25 19:25 Hydrocodone/Acetaminophen (*Crx) 5-325 Mg Tablet PO Q6H PRN Pain Rated 4-6 Amlodipine Besylate 5 mg 02/19/25 09:00 02/22/25 09:09 Amlodipine Besylate 5 Mg Tablet PO 5 mg QAM LIZA Administration Aspirin 325 mg 02/19/25 21:00 02/21/25 21:10 Aspirin 325 Mg Tablet PO 325 mg HS LIZA Administration Atorvastatin Calcium 80 mg 02/18/25 22:00 02/18/25 22:15 Atorvastatin 40 Mg Tablet PO 80 mg QPM LIZA Administration Calcium Carbonate 200 mg 02/19/25 20:41 02/20/25 20:44 Calcium Carbonate (Tums) 500 Mg (200 Mg Elemental) PO 200 mg Q6H PRN Administration Indigestion Carvedilol 6.25 mg 02/19/25 09:00 02/22/25 09:09 Carvedilol 6.25 Mg Tablet PO 6.25 mg Q12HR LIZA Administration Dextrose 12.5 gm 02/18/25 21:54 Dextrose 50% 25 Gm/50 Ml Syringe IV PUSH PRN PRN Hypoglycemia Protocol Enoxaparin Sodium 40 mg 02/21/25 09:00 02/22/25 07:49 Enoxaparin 40 Mg/0.4 Ml Syringe SUB-Q Not Given DAILY LIZA Glucagon 1 mg 02/18/25 21:54 Glucagon For Inj 1 Mg Vial IM PRN PRN Hypoglycemia Protocol Glucose 15 gm 02/18/25 21:54 Glucose Oral Gel 15 Gm Of Glucse In 37.5 Gm Tube PO PRN PRN Hypoglycemia Protocol Dextrose 1,000 mls @ 100 mls/hr 02/18/25 21:54 Dextrose 5% 1,000 Ml IVPB PRN PRN Hypoglycemia Protocol Piperacillin/Tazobactam/Dextrose 3.375 gm in 50 mls @ 100 mls/hr 02/19/25 06:00 02/22/25 12:00 Zosyn 3.375 Gm/Ns 50 Ml IVPB Not Given Q6H [facility] Insulin Aspart 2 - 5 units 02/19/25 00:00 02/22/25 11:51 Insulin Aspart (*Bkc) 100 Units/Ml SUB-Q Not Given Q6HR [facility] Protocol Lisinopril 40 mg 02/19/25 09:00 02/22/25 09:09 Lisinopril 20 Mg Tablet PO 40 mg DAILY LIZA Administration Ondansetron HCl 4 mg 02/18/25 19:25 Ondansetron Inj 4 Mg/2 Ml Vial IV PUSH Q6H PRN Nausea And Vomiting Pantoprazole Sodium 40 mg 02/19/25 09:00 02/22/25 09:09 Pantoprazole 40 Mg Tablet PO 40 mg QAM LIZA Administration Vitamin D 1,000 units 02/19/25 09:00 02/22/25 09:09 Cholecalciferol 1,000 Units Tablet PO 1,000 units DAILY LIZA Administration Radiology Results: ITS Impressions Carotid Doppler Study 02/19/25 12:33 IMPRESSION: 1. Less than 50% stenosis in the right internal carotid artery by sonographic criteria. 2. 50-69% stenosis in the left internal carotid artery by sonographic criteria. Abdomen Ultrasound 02/19/25 12:51 IMPRESSION: 1: Cholelithiasis with gallbladder wall thickening. Consider cholecystitis in the appropriate clinical setting. Hepatobiliary Scan Nuclear Medicine 02/19/25 13:02 IMPRESSION: 1. No evident gallbladder activity including in the 30 minutes following following morphine administration consistent with acute cholecystitis. Chest X-Ray 02/22/25 11:59 IMPRESSION: Small left-sided pleural effusion, without focal infiltrate. Labs Labs: Laboratory Results - last 24 hr 02/21/25 02/21/25 02/22/25 18:17 23:00 05:33 WBC 6.4 RBC 3.88 L Hgb 12.2 L Hct 37.2 L MCV 95.9 MCH 31.4 MCHC 32.8 RDW 11.9 Plt Count 193 MPV 11.9 H Sodium 138 Potassium 3.5 Chloride 105 Carbon Dioxide 26 Anion Gap 7 BUN 7 L D Creatinine 0.69 L Estim Creat Clear Calc 63 Estimated GFR > 60 Glucose 114 H POC Capillary Glucose 124 H 127 H Calcium 8.2 L Total Bilirubin 0.7 AST 30 ALT 35 Alkaline Phosphatase 53 Total Protein 7.0 Albumin 3.6 Blood Type Antibody Screen 02/22/25 02/22/25 07:49 11:40 WBC RBC Hgb Hct MCV MCH MCHC RDW Plt Count MPV Sodium Potassium Chloride Carbon Dioxide Anion Gap BUN Creatinine Estim Creat Clear Calc Estimated GFR Glucose POC Capillary Glucose 140 H Calcium Total Bilirubin AST ALT Alkaline Phosphatase Total Protein Albumin Blood Type B Positive Antibody Screen Negative Quality VTE Prophylaxis VTE prophylaxis: mechanical ordered
[2025-02-22] MEDS: LACTATED RINGERS 1,000 ML 30 ML IV CONT ×3 (15:45→18:05)
[2025-02-22] MEDS: POTASSIUM CHLORIDE INJ 40 MEQ in SODIUM CHLORIDE 0.9% IV 500 ML 130 MEQ IVPB (15:45)
[2025-02-22 16:16] LABS: Glucose Point of Care 107 mg/dl (65-105)
--- NOTE | 2025-02-22 16:32 | WPDHPUPDATE1 ---
History and Physical Update Update Date/Time: 02/22/25 16:32 Lexiscan stress test showed very small area of reperfuse a bowl defect. I spoke with Dr. Oswald about this. He read the stress test EKG portion and is familiar with the patient. While his Lexiscan is not completely normal, the mild abnormalities are insufficient to hold off on surgery and proceed with cardiac catheterization. I discussed this with the patient, his , and his daughter. We will go ahead with the surgery. Patient is in agreement with proceeding. History and Physical has been reviewed, including an updated exam of the patient. There are NO changes in the patient's condition. Risks, benefits, and alternatives have been discussed and questions answered. Patient agrees to proceed with procedure.
--- NOTE | 2025-02-22 16:49 | P.PNAN_ITS ---
Anes - Initial Pre Proc Eval Procedure: Operation Date: 02/22/25 16:30 Proposed Procedures p Laparoscopic Cholecystectomy - Gonzalez Sexton MD Date/Time: 02/22/25 16:49 Surgeon: Tessa Iglesias MD Pre Op Diagnosis: Cholelithiasis Patient Data Age: 89 Gender: M Height: 1.73 m Weight: 78.8 kg Last Vital Signs Temp 36.4 C 02/22/25 15:00 Pulse 52 L 02/22/25 15:00 Resp 16 02/22/25 15:00 BP 146/56 H 02/22/25 15:00 Pulse Ox 92 02/22/25 15:00 O2 Del Method Room Air 02/22/25 15:00 Allergies Allergy/AdvReac Type Severity Reaction Status Date / Time No Known Allergies Allergy Verified 02/22/25 15:55 Home Medications ?Medication ?Instructions ?Recorded ?Confirmed ?Type aspirin 325 mg tablet 325 mg PO HS 05/20/20 02/18/25 History cholecalciferol (vitamin D3) 25 25 mcg PO DAILY 09/09/20 02/18/25 History mcg (1,000 unit) tablet omeprazole 20 mg capsule,delayed See Rx Instructions .Route 11/13/21 02/18/25 Rx release .COMPLEX #90 caps metformin 500 mg tablet,extended See Rx Instructions .Route 10/28/24 02/18/25 Rx release 24 hr .COMPLEX #100 tabs lisinopril 40 mg tablet 40 mg PO DAILY #90 tabs 12/29/24 02/18/25 Rx carvedilol 6.25 mg tablet 6.25 mg PO DAILY #90 tabs 12/30/24 02/18/25 Rx amlodipine 5 mg tablet 5 mg PO QAM #90 tabs 01/29/25 02/18/25 Rx atorvastatin 80 mg tablet 80 mg PO QPM #90 tabs 02/11/25 02/18/25 Rx Laboratory Tests 02/21/25 02/21/25 02/22/25 18:17 23:00 05:33 WBC 6.4 K/mm3 (4.5-10.0) RBC 3.88 L M/mm3 (4.6-6.20) Hgb 12.2 L g/dL (14.0-18.0) Hct 37.2 L % (42.0-52.0) MCV 95.9 fl (80-100) MCH 31.4 pg (26-34) MCHC 32.8 g/dl (32-36) RDW 11.9 % (11.5-14.5) Plt Count 193 k/mm3 (150-375) MPV 11.9 H fl (7.4-10.4) Sodium 138 mmol/L (137-145) Potassium 3.5 mmol/L (3.4-5.0) Chloride 105 mmol/L (98-107) Carbon Dioxide 26 mmol/L (22-30) Anion Gap 7 mmol/L (4-12) BUN 7 L D mg/dL (9-20) Creatinine 0.69 L mg/dL (0.7-1.3) Estim Creat Clear Calc 63 ml/min Estimated GFR > 60 (59 - ) Glucose 114 H mg/dL (65-110) POC Capillary Glucose 124 H mg/dl 127 H mg/dl (65-105) (65-105) Calcium 8.2 L mg/dL (8.4-10.2) Total Bilirubin 0.7 mg/dL (0.2-1.3) AST 30 U/L (17-59) ALT 35 U/L (6-50) Alkaline Phosphatase 53 U/L (38-126) Total Protein 7.0 g/dL (6.3-8.2) Albumin 3.6 g/dL (3.5-5.1) Blood Type Antibody Screen 02/22/25 02/22/25 02/22/25 07:49 11:40 16:09 WBC RBC Hgb Hct MCV MCH MCHC RDW Plt Count MPV Sodium Potassium Chloride Carbon Dioxide Anion Gap BUN Creatinine Estim Creat Clear Calc Estimated GFR Glucose POC Capillary Glucose 140 H mg/dl 107 H mg/dl (65-105) (65-105) Calcium Total Bilirubin AST ALT Alkaline Phosphatase Total Protein Albumin Blood Type B Positive Antibody Screen Negative Patient hx anesthesia problems: none Family hx anesthesia problems: none Results Review: All pre-operative results and documents have been reviewed as part of the pre- operative evaluation. [facility] Past Medical History Medical History Type 2 diabetes mellitus Urinary retention Osteoarthritis Adenomatous colon polyp (~05/2015) Gastroesophageal reflux disease Coronary artery disease Poorly documented in the EMR, patient apparently has nonocclusive coronary disease however he cannot provide me with any details regarding this. Carotid stenosis Status post bilateral carotid endarterectomy. Hypertension Hyperlipidemia Surgical History Surgical History History of bilateral cataract extraction History of bilateral carotid endarterectomy (~2017) Family History Family History Sibling Diabetes mellitus Hypertension Social History Social History Social History: Surrogate medical decision maker: Deb Patel, spouse. Code status: Full code. Smoking packs per day: 1 Smoking cigarettes per day: 20.0 Years smoked: 15 Smoking pack-years: 15.00 Smoking status: Former smoker Tobacco type: cigarettes Smoking end date: 10/07/69 Alcohol intake: current Drinks per week: 7 Substance use: never Substance use type: does not use Do You Feel Safe in your Home?: Yes Lack of Transportation: No Lack of Food: Never True Current Housing: I Have Housing Concerned About Future Housing: No Difficulty Paying Gas/Electric Bills: No Difficulty Paying for Meds: No Currently Unemployed: No Education: High School Diploma/GED Difficulty w/ Childcare or Family Care: No Living arrangements: with family Additional living arrangements comments: Lives in [place] with his . 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 Spiritual care concerns: No Anes - Eval Final PreProcedure Day of Procedure 02/22/25 16:49 Patient weight: normal Heart: regular rate and rhythm Lungs: clear to auscultation Airway: Mallampati scale class II Neurological: alert and oriented Last oral intake: >/= 8 hours ASA classification: III Emergent: no Anesthetic plan: proceed Anesthesia type and monitoring: general ETT and standard monitoring Results Review: All pre-operative results and documents have been reviewed as part of the pre- operative evaluation. Informed Consent: The patient's anesthetic plan and its attendant risks and benefits were discussed with the patient/family/POA. Questions were solicited and answers provided to the satisfaction of the patient/family/POA.
[2025-02-22] MEDS: BUPIVACAINE/EPINEPHRINE 0.5% 50 ML VIAL 30 ML INFILTRATE (17:07)
--- NOTE | 2025-02-22 18:10 | W.PM.PROC2 ---
Procedure Note - Detailed Date of Procedure 02/22/25 Pre-op Diagnosis Acute and chronic cholecystitis, cholelithiasis Post-op Diagnosis Same Procedure Performed Laparoscopic cholecystectomy Surgeon Gonzalez Sexton MD It Business Process Architect Amy HOPKINS Anesthesia General and Local Indications Patient came to the hospital with a complaint of lightheadedness and dizziness. For the discussion revealed that he was having postprandial right upper quadrant abdominal pain and nausea especially after fatty meals. His imaging showed gallstones and some evidence of cholecystitis. He had a HIDA scan which showed nonvisualization of the gallbladder. He is taken to surgery now after cardiac evaluation for laparoscopic cholecystectomy Findings Mostly chronic inflammation was noted all there were there was some edema and evidence of acute inflammation. No biliary ductal dilatation was noted and liver was firm with some evidence of fatty liver. Description of Procedure Patient was taken to surgery and induced into general anesthesia. The abdomen is prepped and draped. Trocars were placed in usual fashion using applied Medical optical trocars and a 5 mm camera gallbladder was decompressed with a laparoscopic aspirator. The cholecystotomy was closed with a Vicryl endoloop. The gallbladder was then retracted anterosuperiorly. We took down additional adhesions which were very prominent in the lower half of the gallbladder. These adhesions were also quite dense. The gallbladder wall had a fibrotic nature and there was some edema and signs of acute inflammation. The dissection was hypervascular but cautery was used judiciously and bleeding was minimal. Eventually we dissected down to the infundibulum of the gallbladder. With traction on the infundibulum, we continued our dissection taking down adhesions on the medial side of the gallbladder. The cystic duct and cystic artery were identified. We dissected out each of these structures thoroughly. We also dissected out the gallbladder over at least its lower 3rd. Critical view was achieved. I then securely clipped and divided the cystic duct and cystic artery. We dissected the gallbladder free from its remaining attachments to the liver. Once the gallbladder was freed, we placed it in an Endo-Catch bag and retrieved it through the 10 11 epigastric trocar site. I did have to dilate the epigastric trocar site to accommodate the gallbladder with its thickened nichols and still quite a bit of intraluminal content. Once the gallbladder was removed, the epigastric trocar was replaced and we used a towel clip to occlude the skin and subcutaneous so that we could insufflate. We then reviewed the gallbladder fossa. No additional cautery was needed. We irrigated and suctioned the area 2 or 3 additional times. There was no evidence of bleeding or bile leakage. We then used the Mahad cone and 0 Vicryl suture. The fascia at the epigastric trocar site was closed. We evacuated CO2 and removed the trocar sleeves. 3-0 Vicryl subcutaneous suture were placed at the epigastric trocar site. All skin incisions were then closed with subcuticular 4-0 Monocryl skin suture. The wounds were dressed with Exofin surgical adhesive. The patient was awakened and taken to recovery in good condition. Sponge and needle counts were correct x2. Estimated Blood Loss -5 Urine Output 300 Drains No Packing No Pathology Yes (Gallbladder) Complications None Condition Stable Disposition PACU [facility] Billing Surgery - Charge Forward: Surgery Billing (Laparoscopic cholecystectomy)
[2025-02-22 18:28] LABS: Glucose Point of Care 157 mg/dl (65-105)
[2025-02-22] MEDS: ONDANSETRON INJ 4 MG/2 ML VIAL IV PUSH (18:43)
[2025-02-22] MEDS: LACTATED RINGERS 1,000 ML 100 ML IV CONT (20:01)
[2025-02-22] MEDS: ASPIRIN 325 MG TABLET PO (20:02)
[2025-02-22] MEDS: oxyCODONE/ACETAMINOPHEN (*CRX) 5-325 MG TABLET 1 TABLET PO (20:02)
[2025-02-22] MEDS: fentaNYL CITRATE INJ (*CRX) 100 MCG/2 ML VIAL 12.5 MCG IV PUSH (21:03)
[2025-02-22] MEDS: ACETAMINOPHEN 500 MG TABLET PO (23:14)
[2025-02-22 23:15] LABS: Glucose Point of Care 108 mg/dl (65-105)
[2025-02-23] VITALS: PULSE 65
[2025-02-23 00:40] VITALS: BP 134/60; PULSE 60; RESP 18; TEMP 36.1; O2SAT 95
[2025-02-23 04:00] VITALS: PULSE 56
[2025-02-23] MEDS: PIPERACILLN/TAZ 3.375GM/NS50ML 3.375 GM/50 ML BAG IVPB (05:13)
[2025-02-23] MEDS: oxyCODONE/ACETAMINOPHEN (*CRX) 5-325 MG TABLET 1 TABLET PO (05:13)
[2025-02-23 05:40] VITALS: BP 153/62; PULSE 61; RESP 20; TEMP 36.1; O2SAT 94
[2025-02-23 06:56] LABS: Hematocrit 39.9 % (42.0-52.0); Hemoglobin 12.8 g/dL (14.0-18.0); Mean Corpuscular HGB Conc 32.1 g/dl (32-36); Mean Corpuscular Hemoglobin 31.4 pg (26-34); Mean Corpuscular Volume 97.8 fl (80-100); Platelet Count Result 191 k/mm3 (150-375); Red Blood Count 4.08 M/mm3 (4.6-6.20); Red Cell Distribution Width 11.9 % (11.5-14.5); White Blood Count 7.4 K/mm3 (4.5-10.0)
[2025-02-23 07:06] LABS: Alanine Aminotransferase 48 U/L (6-50); Albumin Level 3.6 g/dL (3.5-5.1); Alkaline Phosphatase 57 U/L (38-126); Anion Gap 6 mmol/L (4-12); Aspartate Amino Transferase 56 U/L (17-59); Bilirubin,Total 0.9 mg/dL (0.2-1.3); Blood Urea Nitrogen 9 mg/dL (9-20); Calcium 8.2 mg/dL (8.4-10.2); Carbon Dioxide 27 mmol/L (22-30); Chloride 104 mmol/L (98-107); Estimated CRCL calculation 60 ml/min; Estimated Glomerular Filt Rate > 60; Glucose 104 mg/dL (65-110); Sodium 137 mmol/L (137-145)
[2025-02-23 08:00] VITALS: PULSE 60; RESP 18; O2SAT 94
[2025-02-23 08:40] VITALS: BP 167/64; PULSE 60; RESP 18; TEMP 36.5; O2SAT 94
[2025-02-23] MEDS: amLODIPine BESYLATE 5 MG TABLET PO (08:59)
[2025-02-23] MEDS: CHOLECALCIFEROL 1,000 UNITS TABLET 1000 UNITS PO (09:00)
[2025-02-23] MEDS: PANTOPRAZOLE 40 MG TABLET PO (09:00)
[2025-02-23] MEDS: carvediloL 6.25 MG TABLET PO (09:00)
[2025-02-23] MEDS: lisinopriL 20 MG TABLET 40 MG PO (09:00)
[2025-02-23] MEDS: ENOXAPARIN 40 MG/0.4 ML SYRINGE SUB-Q (09:00)
--- NOTE | 2025-02-23 09:09 | PM.PNGS ---
Progress Note: A&P Assessment and Plan (1) Cholecystitis with cholelithiasis: Qualifiers: Cholelithiasis location: gallbladder Cholecystitis acuity: acute and chronic Biliary obstruction: without biliary obstruction Qualified Code(s): K80.12 - Calculus of gallbladder with acute and chronic cholecystitis without obstruction Code(s): K80.10 - Calculus of gallbladder with chronic cholecystitis without obstruction Status: Chronic Assessment and Plan: Patient's surgery went very well. I explained this to him. He has not yet been out of bed or eaten anything today. He very much wants to be discharged. If he can ambulate relatively independently and is tolerating oral intake, I would be fine with him going home today. He can have a regular diet. He should see me in follow-up in 2 weeks. I will write discharge instructions and meds to that effect. Subjective Subjective Date/Time Seen: 02/23/25 09:09 Post Op day: 1 Patient reports: no new complaints (Wants to go home today), pain is less (Minimal postoperative abdominal pain), voiding w/o difficulty and afebrile Exam Const: General: comfortable, alert and awake Nutritional Appearance: thin GI: Inspection: non-distended, incision (All wounds healing well) and scaphoid GI Palp: Yes Soft to palpation and Yes Tenderness to palpation present (GI) (Expected and appropriate amount of tenderness) Objective Data Vital Signs Vital Signs: Vital Signs - 24 hr 02/22/25 12:00 02/22/25 14:00 02/22/25 15:00 Temperature 36.6 C 36.4 C Pulse Rate 51 L 65 52 L Respiratory Rate 18 16 Blood Pressure 163/58 H 146/56 H Pulse Oximetry 95 92 Oxygen Delivery Room Air Oxygen Flow Rate 02/22/25 18:05 02/22/25 18:20 02/22/25 18:35 Temperature 36.1 C L Pulse Rate 76 72 79 Respiratory Rate 16 16 17 Blood Pressure 170/58 H 192/73 H 177/75 H Pulse Oximetry 99 100 96 Oxygen Delivery Simple Face Mask Simple Face Mask Room Air Oxygen Flow Rate 8 8 02/22/25 18:50 02/22/25 18:55 02/22/25 19:35 Temperature 36.4 C L 36.3 C L Pulse Rate 76 64 65 Respiratory Rate 16 18 18 Blood Pressure 170/58 H 167/72 H 179/74 H Pulse Oximetry 99 94 94 Oxygen Delivery Room Air Oxygen Flow Rate 02/22/25 20:00 02/22/25 20:00 02/22/25 20:02 Temperature Pulse Rate 64 66 Respiratory Rate Blood Pressure Pulse Oximetry Oxygen Delivery Room Air Oxygen Flow Rate 02/22/25 20:05 02/22/25 21:05 02/23/25 00:00 Temperature 36.5 C 36.3 C L Pulse Rate 62 65 65 Respiratory Rate 20 16 Blood Pressure 198/64 H 148/64 H Pulse Oximetry 95 95 Oxygen Delivery Oxygen Flow Rate 02/23/25 00:40 02/23/25 04:00 02/23/25 05:40 Temperature 36.1 C L 36.1 C L Pulse Rate 60 56 L 61 Respiratory Rate 18 20 Blood Pressure 134/60 153/62 H Pulse Oximetry 95 94 Oxygen Delivery Oxygen Flow Rate Intake/Output Intake/Output: Intake & Output 02/20/25 02/21/25 02/22/25 02/23/25 23:59 23:59 23:59 23:59 Intake Total 880 1470 2020 200 Output Total 375 322 870 1362 Balance 505 1170 1720 -975 Meds/Results Medications: Active Medications Generic Name Dose Route Start Last Admin Trade Name Freq PRN Reason Stop Dose Admin Acetaminophen 500 mg 02/22/25 18:55 02/22/25 23:14 Acetaminophen 500 Mg Tablet PO 500 mg Q6H PRN Administration Pain Rated 1-3 Amlodipine Besylate 5 mg 02/19/25 09:00 02/23/25 08:59 Amlodipine Besylate 5 Mg Tablet PO 5 mg QAM LIZA Administration Aspirin 325 mg 02/19/25 21:00 02/22/25 20:02 Aspirin 325 Mg Tablet PO 325 mg HS LIZA Administration Atorvastatin Calcium 80 mg 02/18/25 22:00 02/18/25 22:15 Atorvastatin 40 Mg Tablet PO 80 mg QPM LIZA Administration Calcium Carbonate 200 mg 02/19/25 20:41 02/20/25 20:44 Calcium Carbonate (Tums) 500 Mg (200 Mg Elemental) PO 200 mg Q6H PRN Administration Indigestion Carvedilol 6.25 mg 02/19/25 09:00 02/23/25 09:00 Carvedilol 6.25 Mg Tablet PO 6.25 mg Q12HR LIZA Administration Dextrose 12.5 gm 02/18/25 21:54 Dextrose 50% 25 Gm/50 Ml Syringe IV PUSH PRN PRN Hypoglycemia Protocol Enoxaparin Sodium 40 mg 02/21/25 09:00 02/23/25 09:00 Enoxaparin 40 Mg/0.4 Ml Syringe SUB-Q 40 mg DAILY LIZA Administration Fentanyl Citrate 12.5 mcg 02/22/25 18:55 02/22/25 21:03 Fentanyl Citrate Inj (*Crx) 100 Mcg/2 Ml Vial IV PUSH 12.5 mcg Q2H PRN Administration Breakthrough Pain Rated 4-6 or NPO Fentanyl Citrate 25 mcg 02/22/25 18:55 Fentanyl Citrate Inj (*Crx) 100 Mcg/2 Ml Vial IV PUSH Q2H PRN Breakthrough Pain Rated 7-10 or NPO Glucagon 1 mg 02/18/25 21:54 Glucagon For Inj 1 Mg Vial IM PRN PRN Hypoglycemia Protocol Glucose 15 gm 02/18/25 21:54 Glucose Oral Gel 15 Gm Of Glucse In 37.5 Gm Tube PO PRN PRN Hypoglycemia Protocol Dextrose 1,000 mls @ 100 mls/hr 02/18/25 21:54 Dextrose 5% 1,000 Ml IVPB PRN PRN Hypoglycemia Protocol Piperacillin/Tazobactam/Dextrose 3.375 gm in 50 mls @ 100 mls/hr 02/19/25 06:00 02/23/25 05:13 Zosyn 3.375 Gm/Ns 50 Ml IVPB 100 mls/hr Q6H LIZA Administration Ibuprofen 800 mg in 200 mls @ 400 mls/hr 02/22/25 18:55 Caldolor 800 Mg/200 Ml IVPB Q6H PRN Breakthrough Pain Rated 1-3 or NPO Insulin Aspart 2 - 5 units 02/19/25 00:00 02/23/25 07:24 Insulin Aspart (*Bkc) 100 Units/Ml SUB-Q Not Given Q6HR LIZA Protocol Lisinopril 40 mg 02/19/25 09:00 02/23/25 09:00 Lisinopril 20 Mg Tablet PO 40 mg DAILY LIZA Administration Naloxone HCl 0.1 mg 02/22/25 18:55 Naloxone Hcl 0.4 Mg/Ml Vial IV PUSH Q2M PRN Opiate Reversal Ondansetron HCl 4 mg 02/18/25 19:25 02/22/25 18:43 Ondansetron Inj 4 Mg/2 Ml Vial IV PUSH 4 mg Q6H PRN Administration Nausea And Vomiting Oxycodone/Acetaminophen 1 tablet 02/22/25 18:55 02/23/25 05:13 Oxycodone/Acetaminophen (*Crx) 5-325 Mg Tablet PO 1 tablet Q4H PRN Administration Pain Rated 4-6 Pantoprazole Sodium 40 mg 02/19/25 09:00 02/23/25 09:00 Pantoprazole 40 Mg Tablet PO 40 mg QAM LIZA Administration Vitamin D 1,000 units 02/19/25 09:00 02/23/25 09:00 Cholecalciferol 1,000 Units Tablet PO 1,000 units DAILY LIZA Administration Radiology Results: ITS Impressions Carotid Doppler Study 02/19/25 12:33 IMPRESSION: 1. Less than 50% stenosis in the right internal carotid artery by sonographic criteria. 2. 50-69% stenosis in the left internal carotid artery by sonographic criteria. Abdomen Ultrasound 02/19/25 12:51 IMPRESSION: 1: Cholelithiasis with gallbladder wall thickening. Consider cholecystitis in the appropriate clinical setting. Hepatobiliary Scan Nuclear Medicine 02/19/25 13:02 IMPRESSION: 1. No evident gallbladder activity including in the 30 minutes following following morphine administration consistent with acute cholecystitis. Chest X-Ray 02/22/25 11:59 IMPRESSION: Small left-sided pleural effusion, without focal infiltrate. Lexiscan Stress Test 02/22/25 14:07 IMPRESSION: 1. Small mild reversible perfusion defect consistent with ischemia at the apical lateral, apical inferior and mid inferior segments. 2. Left ventricular ejection fraction measuring 62%. Labs Labs: Laboratory Results - last 24 hr 02/22/25 02/22/25 02/22/25 11:40 16:09 18:26 WBC RBC Hgb Hct MCV MCH MCHC RDW Plt Count MPV Sodium Potassium Chloride Carbon Dioxide Anion Gap BUN Creatinine Estim Creat Clear Calc Estimated GFR Glucose POC Capillary Glucose 140 H 107 H 157 H Calcium Total Bilirubin AST ALT Alkaline Phosphatase Total Protein Albumin 02/22/25 02/23/25 23:09 05:51 WBC 7.4 RBC 4.08 L Hgb 12.8 L Hct 39.9 L MCV 97.8 MCH 31.4 MCHC 32.1 RDW 11.9 Plt Count 191 MPV 12.0 H Sodium 137 Potassium 4.0 Chloride 104 Carbon Dioxide 27 Anion Gap 6 BUN 9 Creatinine 0.73 Estim Creat Clear Calc 60 Estimated GFR > 60 Glucose 104 POC Capillary Glucose 108 H Calcium 8.2 L Total Bilirubin 0.9 AST 56 ALT 48 Alkaline Phosphatase 57 Total Protein 7.0 Albumin 3.6
--- NOTE | 2025-02-23 10:21 | PM.DS ---
DS: Admitting Diagnosis Discharge Date 02/23/25 Admitting Diagnosis cholecystitis DS: Discharge Diagnosis Discharge Diagnosis (1) Near syncope: Code(s): R55 - Syncope and collapse Status: Acute (2) Cholecystitis with cholelithiasis: Qualifiers: Biliary obstruction: without biliary obstruction Cholecystitis acuity: acute and chronic Cholelithiasis location: gallbladder Qualified Code(s): K80.12 - Calculus of gallbladder with acute and chronic cholecystitis without obstruction Code(s): K80.10 - Calculus of gallbladder with chronic cholecystitis without obstruction Status: Chronic (3) Hypertension: Qualifiers: Hypertension type: primary hypertension Qualified Code(s): I10 - Essential (primary) hypertension Code(s): I10 - Essential (primary) hypertension Status: Acute (4) Type 2 diabetes mellitus: Code(s): E11.9 - Type 2 diabetes mellitus without complications Status: Acute Plan Acute cholecystitis S/P laparoscopic cholecystectomy Hida scan and abd US concerning for acute cholecystitis. transaminitis improved surgery team on board, follow in 2 weeks pre syncope recent echo LVEf 65% Carotid US showed 50-69% stenosis in the left internal carotid artery DM2 SSI and accu chesks hold metformin continue to monitor HTN coreg, lisinopril CAD coreg, ASA, statin DS: Summary Hospital Course Hospital Course: This is an 89-year-old male with history of nonobstructive coronary artery disease, hypertension, hyperlipidemia, gastroesophageal reflux disease, and type 2 diabetes mellitus who is being directly admitted to the medical floor from the emergency department at the [facility] for further evaluation of near-syncope and possible cholecystitis. The last several years he has had intermittent episodes of lightheadedness and dizziness which he has attributed to the fact that he is getting older. It has been worse this year and has been occurring daily for the past week or so. He seems to notice it when going from a seated to standing position and tells me that he feels lightheaded, almost as though he is going to pass out, short time thereafter. He also mentions that his legs feel weak during these episodes and that he feels as though his balance is off. He monitors his blood pressures at home and has noticed that the diastolic number is may be a bit lower than usual however his systolics are typically in the 130s to 140s and he has not noticed any change there. He has gradually lost weight over the years but nothing significant or recent. There have been no recent changes in medications. Luckily he has not had any falls and denies syncope, headache, overt vertigo, visual changes, focal weakness, paresthesias, and difficulties speaking and swallowing. He also denies chest and pleuritic pain, palpitations, and shortness of breath. While in the emergency department he had an episode of upper abdominal discomfort, almost like a fullness or squeezing sensation which he calls indigestion. With further questioning he admits to having similar symptoms on occasion, most notably after eating fatty or fried foods. He had a similar episode last week with 1 episode of nonbloody and nonbilious emesis. He denies fever, chills, sweats, current abdominal pain, vomiting today, diarrhea, and dysuria.. In fact he reports intermittent issues with constipation. In the ED: He was afebrile on arrival. Blood pressures were in the 170s to 180s systolic but have improved. Labs were significant for WBC count of 12.6, sodium 135, creatinine 0.63, glucose 145, lactic acid 0.8, lipase 74, and normal LFTs. No acute findings were noted on head CT. CT of the abdomen pelvis showed cholelithiasis with trace amount of pericholecystic fluid suspicious for acute cholecystitis and diffuse wall thickening of the bladder. He was given a dose of piperacillin-tazobactam and transfer was initiated to [facility] for surgery consultation. At the time my evaluation he is resting comfortably and has no complaints aside from fact that he is hungry 02/19/25 Patient was seen and examined at bedside. he is feeling fine, denies any chest pain abd pain, nausea vomiting. Has transaminitis. hida scan and abd US concerning for acute cholecystitis. surgery team on board. CArtoid US showed 50-69% stenosis in the left internal carotid artery 02/21/25 Hida scan positive. cardiology team on board plan for stress test on Saturday before surgery. 02/22/25 stress test:1. Small mild reversible perfusion defect consistent with ischemia at the apical lateral, apical inferior and mid inferior segments. 2. Left ventricular ejection fraction measuring 62%. underwent Laparoscopic cholecystectomy 02/23/25 Patient was seen and examined at bedside. he is feeling fine, denies chest pain, SOB ,abd pain, N/V. liver enzyme back to normal. Status at Discharge Functional status at discharge: independent ambulation Overall status at discharge: patient is back to baseline Time Spent with Patient Time attestation: Total time spent providing and/or coordinating discharge services: Time spent: Greater than 30 minutes Exam Narrative: General: Well-developed, nontoxic-appearing gentleman sitting up in bed in no acute distress. HEENT: PERRL, EOMI. Sclera anicteric. Tacky mucous membranes. Neck: Supple. Respiratory: Lungs are clear to auscultation bilaterally. Cardiovascular: Regular rate and rhythm with S1-S2. Soft systolic murmur at the upper sternal border. Gastrointestinal: Abdomen is soft, nontender, and nondistended with positive bowel sounds. Negative Barker sign. Skin: Warm and dry. No rash or lesions on limited exam. Extremities: No cyanosis, clubbing, or edema. Radial and pedal pulses intact. Neurological: Alert. Cranial nerves 2-12 are grossly intact. No gross focal deficits to casual conversation. Psychiatric: Pleasant and cooperative with normal mood and affect. Judgment and insight intact. DS: Data Data Completed and Pending Pending studies at discharge: Pending at discharge 02/22/25 17:14 Surgical [PTH] Routine Labs on day of discharge: Labs from last 24 hours 02/23/25 02/22/25 02/22/25 05:51 23:09 18:26 WBC 7.4 RBC 4.08 L Hgb 12.8 L Hct 39.9 L MCV 97.8 MCH 31.4 MCHC 32.1 RDW 11.9 Plt Count 191 MPV 12.0 H Sodium 137 Potassium 4.0 Chloride 104 Carbon Dioxide 27 Anion Gap 6 BUN 9 Creatinine 0.73 Estim Creat Clear Calc 60 Estimated GFR > 60 Glucose 104 POC Capillary Glucose 108 H 157 H Calcium 8.2 L Total Bilirubin 0.9 AST 56 ALT 48 Alkaline Phosphatase 57 Total Protein 7.0 Albumin 3.6 02/22/25 02/22/25 16:09 11:40 WBC RBC Hgb Hct MCV MCH MCHC RDW Plt Count MPV Sodium Potassium Chloride Carbon Dioxide Anion Gap BUN Creatinine Estim Creat Clear Calc Estimated GFR Glucose POC Capillary Glucose 107 H 140 H Calcium Total Bilirubin AST ALT Alkaline Phosphatase Total Protein Albumin Discharge Plan Discharge Attending physician on discharge: Tessa Iglesias Consulting providers: Gonzalez Sexton; Willard Ricci Discharging Clinician: Tessa Iglesias Anticipated Discharge Date/Time: 02/23/25 10:31 Patient Disposition: Home Activity: may shower, no straining and as tolerated Diet: regular Wound Care Instructions: incision open to air Discharge Instructions: 1. May shower the day after surgery over incisions. 2. Call office for: -Wound increasingly painful or bleeding -Vomiting -Fever of greater than 101 degrees 3. Expect some blood on dressing and old blood on skin. 4. If no bowel movement for three days, take 1 oz. (30 ml) Milk of Magnesia, if no results, take Fleets enema. 5. No heavy lifting > 15-20 pounds for 2 weeks. 6. No driving for 3 days or while taking narcotic pain medications. 7. Up walking 10-30 minutes three times per day. 8. Resume previous home medications. 9. Follow-up 10-14 days in office for wound check or as previously scheduled. 10. Oral pain medications prescription to be sent home with patient. Patient Instructions: Antibiotic Form Patient Language: Ugandan Stand Alone Forms: General Discharge Information Follow-up/Referrals: Willard Ricci MD [Physician] - Call for Appointment Tr Zaman MD [Primary Care Provider] - 1 Week Gonzalez Sexton MD [Physician] - 2 Weeks (Call to make appointment to see Dr. Sexton in 2 weeks.) Discharge Medications: New oxycodone-acetaminophen [Percocet] 5-325 mg tablet 0.5 - 1 tablet PO Q4H PRN (Reason: pain) Qty: 10 0RF cefdinir 300 mg capsule 300 mg PO Q12H Qty: 7 0RF metronidazole 500 mg tablet 500 mg PO Q8H 3 Days Qty: 9 0RF Continued cholecalciferol (vitamin D3) 25 mcg (1,000 unit) Tablet 25 mcg PO DAILY aspirin 325 mg Tablet 325 mg PO HS omeprazole 20 mg capsule,delayed release(/EC) See Rx Instructions .ROUTE .COMPLEX Qty: 90 4RF Dose Instruction: TAKE 1 CAPSULE BY MOUTH EVERY DAY Rx Instructions: TAKE 1 CAPSULE BY MOUTH EVERY DAY metformin 500 mg tablet extended release 24 hr See Rx Instructions .ROUTE .COMPLEX Qty: 100 2RF Dose Instruction: TAKE 1 TABLET BY MOUTH DAILY Rx Instructions: TAKE 1 TABLET BY MOUTH DAILY lisinopril 40 mg tablet 40 mg PO DAILY Qty: 90 0RF carvedilol 6.25 mg tablet 6.25 mg PO DAILY Qty: 90 1RF amlodipine 5 mg tablet 5 mg PO QAM Qty: 90 1RF atorvastatin 80 mg tablet 80 mg PO QPM Qty: 90 1RF Date of admission: 02/20/25 09:33 Primary Care Provider: Tr Zaman Admitting Provider: Aaliyah Boyd Attending physician on admission: Tessa Iglesias Condition: Stable Quality VTE Prophylaxis VTE prophylaxis: mechanical ordered
== END 2025-02-23 13:05 | disposition home or self-care (01) | DRG 419 ==
PROVIDERS: Student in an Organized Health Care Education/Training Program; Surgery; Admitting Provider Internal Medicine; PCP Family Medicine; Visit Provider Internal Medicine
PROC: 0FT44ZZ Resection of Gallbladder, Percutaneous Endoscopic Approach (ICD-10-PCS; CPT 47562; principal; 2025-02-22 16:30)
DX: K80.10 Calculus of gallbladder with chronic cholecystitis without obstruction (principal); I25.10 Atherosclerotic heart disease of native coronary artery without angina pectoris; I10 Essential (primary) hypertension; I65.23 Occlusion and stenosis of bilateral carotid arteries; I49.3 Ventricular premature depolarization; E78.5 Hyperlipidemia, unspecified; E11.9 Type 2 diabetes mellitus without complications; K21.9 Gastro-esophageal reflux disease without esophagitis; M19.90 Unspecified osteoarthritis, unspecified site; R55 Syncope and collapse; Z86.0101 Personal history of adenomatous and serrated colon polyps; Z87.891 Personal history of nicotine dependence; Z79.82 Long term (current) use of aspirin
CPT/HCPCS: 36415; 71046; 76705; 78227; 78452; 80053; 82948; 83735; 85025; 85027; 86850; 86900; 86901; 88304; 93017; 93880; 96365; 96375; 97161; 97165; A9270; A9502; A9537; G0378; J1596; J1650; J1815; J2003; J2270; J2405; J2543; J2704; J2785; J3010; J3480; J7040; J7120

== ENCOUNTER 2025-04-01 10:52 | Outpatient (CLI) | payer MEDICARE, SELFPAY ==
--- NOTE | ~2025-04-01 | XR_ITS ---
Exam: Abdomen 1V HISTORY: R10.32 - Left lower quadrant pain COMPARISON: Reference is made to a CT examination of the abdomen and pelvis dated 02/18/2025 TECHNIQUE: Supine images of the abdomen FINDINGS: Bowel gas pattern is nonspecific and non-obstructive. There is no free air or deep sulci. No pathologic calcifications are seen. Fecal stasis is identified within the rectum. No significant bowel dilatation is noted. Lung bases are unremarkable. IMPRESSION: Nonspecific, nonobstructive bowel gas pattern, as detailed above. Reviewed, dictated and finalized at location A.
[2025-04-01 11:03] LABS: Basophils Absolute Auto 0.05 K/mm3 (0.00-0.10); Basophils Percent Auto 0.5 % (0.0-1.0); Eosinophils Absolute Auto 0.06 K/mm3 (0.02-0.50); Eosinophils Percent Auto 0.6 % (1.0-6.0); Hematocrit 39.2 % (37.0-46.0); Immature Granulocyte Absolute 0.03 K/mm3 (0.00-0.00); Immature Granulocyte Percent A 0.3 % (0.0-0.0); Lymphocytes Absolute Auto 0.96 K/mm3 (1.10-4.50); Lymphocytes Percent Auto 10.1 % (18.0-42.0); Mean Corpuscular HGB Conc 33.2 g/dL (32-36); Mean Corpuscular Hemoglobin 31.3 pg (27.0-31.0); Mean Corpuscular Volume 94.5 fL (78.0-102.0); Mean Platelet Volume 10.2 fl (8.7-11.0); Monocytes Absolute Auto 0.64 K/mm3 (0.10-0.90); Monocytes Percent Auto 6.7 % (2.0-11.0); Neutrophils Absolute Auto 7.79 K/mm3 (1.70-7.20); Neutrophils Percent Auto 81.8 % (50.0-70.0); Platelet Count Result 223 K/mm3 (150-420); Red Blood Count 4.15 M/mm3 (4.70-6.10); Red Cell Distribution Width 12.3 % (11.6-14.4); White Blood Count 9.5 K/mm3 (4.8-10.8)
== END 2025-04-01 10:53 | disposition home or self-care (01) ==
PROVIDERS: PCP Family Medicine; Visit Provider Surgery
DX: R10.32 Left lower quadrant pain (principal); R53.83 Other fatigue
CPT/HCPCS: 36415; 74019; 85025

== ENCOUNTER 2025-07-08 14:48 | Outpatient (CLI) | payer MEDICARE, SELFPAY ==
--- NOTE | ~2025-07-08 | CT_ITS ---
EXAMINATION: CT brain & sinus wo con COMPARISON: None HISTORY: R53.83 - Other fatigue TECHNIQUE: Axial images were obtained without IV contrast. Sagittal, coronal reconstruction images were obtained from the axial views. CT scan performed using dose optimization techniques including the following automated exposure control; adjustment of mA and/or kV; use of iterative reconstruction technique. Automatic exposure control was used to reduce radiation dose. Permanent radiation dose record is archived to PACS. FINDINGS: CT brain: No acute infarct or hemorrhage. No midline shift or mass effect. No extra-axial fluid collections. Mild probable chronic periventricular ischemic changes. The mastoid air cells and orbits are unremarkable CT sinuses: Nasal bones intact. Anterior maxillary sinus nichols, zygomatic arches and temporomandibular joints intact. Orbital floors and medial orbits intact. Minimal mucosal thickening in the frontal and ethmoidal air cells. The maxillary sinuses are unremarkable. Ostiomeatal complexes patent. Nasal septum deviated to the left with mild thickening of the turbinates and mild narrowing of the nasal cavities bilaterally. Sphenoid sinus is unremarkable. No osseous destruction or wall thickening is identified. IMPRESSION: 1. No intracranial hemorrhage or infarct. 2. Minimal sinusitis Reviewed, dictated and finalized at location P.
--- OUTSIDE RECORDS SUMMARY | 2025-07-08 14:53 | XMS_ITS | Clinical Summary ---
Author Organization [facility] Address [address] [place] [address] Care Team Providers Care Inspector Rag Sorting Name Role Phone Wilner Braxton MD Unavailable [phone] Tr Zaman MD Primary Care Provider [phone] Allergies No known active allergies Medications cholecalciferol (VITAMIN D3) 1,000 unit capsule take 1 capsule by oral route every day 0 0 01/04/20 17 Active atorvastatin (LIPITOR) 80 mg tablet take 1 Tablet by oral route every day 90 3 01/31/20 17 Active aspirin 325 mg tablet Take 1 tablet (325 mg total) by mouth daily Active metFORMIN (GLUCOPHAGE) 500 mg tablet Take 1 tablet by ORAL route every day with meals 90 tablet 3 04/18/20 17 Active acetaminophen (TYLENOL) 325 mg tablet Take 2 tablets (650 mg total) by mouth every 4 (four) hours as needed for pain (as needed for pain). 04/26/20 17 Active amLODIPine (NORVASC) 5 mg tablet Take 1 tablet (5 mg total) by mouth daily Active carvediloL (COREG) 6.25 mg tablet Take 1 tablet (6.25 mg total) by mouth daily Active lisinopriL (PRINIVIL,ZESTRIL) 40 mg tablet Take 1 tablet (40 mg total) by mouth daily Active mupirocin (BACTROBAN) 2 % ointment 09/08/20 20 Active omeprazole (PriLOSEC) 20 mg capsule Take 1 capsule (20 mg total) by mouth daily Active ondansetron ODT (ZOFRAN-ODT) 4 mg disintegrating tabletIndications: Nausea Take 1 tablet (4 mg total) by mouth every 8 (eight) hours as needed for nausea or vomiting 6 tablet 08/24/20 24 Active Additional Information Patient not taking.Reported on 03/23/2025 omega 7-pas-ego-fish oil 1,200 (144-216) mg capsule Take by mouth Active glucosamine HCl 1,500 mg tablet Take by mouth Active Active Problems Problem Noted Date Diagnosed [...] AM CDT): 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 I would [...] OA - Oste oarthritis of knee; Comments: [facility] 01/03/2017 - Benign prostatic hyperplasia BPH - Benign prostatic hypertrophy; Comments: [facility] 01/03/2017 - Decreased hearing Decreased hear ing; Comments: [facility] 01/03/2017 -; Laterality: left Cataract Cataract; Commen ts: [facility] 01/03/2017 -; Laterality: bilateral Hypertension Hyperlipidemia Diabetes mellitus PVD (peripheral vascular disease) Family History Medical History Relation Name Comments Diabetes Brother Diabetes mellit ; Emphysema Father Emphysema; Aortic stenosis Mother Heart disease Other Family history of Heart disease; Emphysema Sister Emphysema; Relation Name Status Comments Brother Father Mother Other Sister Social History Tobacco Use Types Packs/Day Years Used Date Smoking Tobacco: Former Smokeless Tobacco: Never Tobacco Cessation:Counseling Given: Not Answered Alcohol Use Standard Drinks/Week Comments Yes 0 (1 standard drink = 0.6 oz pur e alcohol) Sex and Gender Information Value Date Recorded Sex Assigned at Not on file Legal Sex Male 12:07 AM MUSIC VIDEO PRODUCER Gender Identity Male 10/04/2020 1:22 PM MUSIC VIDEO PRODUCER Sexual Orientation Something else 10/04/2020 1: 22 PM MUSIC VIDEO PRODUCER Obstetrics History Last Filed Vital Signs Vital Sign Reading Time Taken Comments Blood Pressure 116/40 03/23/2025 8:45 AM CDT Pulse 64 03/23/2025 8:45 AM CDT Temperature 36.7 C (98 F) 08/24/2024 4:32 PM MUSIC VIDEO PRODUCER Respiratory Rate 20 08/24/2024 4:32 PM MUSIC VIDEO PRODUCER Oxygen Saturation 95% 03/23/2025 8:45 AM CDT Inhaled Oxygen Concentration - - Weight 76.2 kg (168 lb) 03/23/2025 8:45 AM CDT Height 172.7 cm (5' 8) 03/23/2025 8:45 AM CDT Body Mass Index 25.54 03/23/2025 8:45 AM CDT Plan of Treatment Health Maintenance Due Date [...] 2 eGFR 09/26/2023 09/26/2022, 05/01/2017 Covid-19 Vaccine ( - 2024-2 6 season) 2025 08/20/2021, 12/02/2020, 11/04/2020 Influenza Vaccine (#1) 2025 06/22/2021, 2016 Procedures Procedure Name Priority Date/Time Associated Diagnosis Comments BASIC METABOLIC PANEL Routine 09/26/2022 9:44 AM MUSIC VIDEO PRODUCER HEMOGLOBIN A1C Routine 09/26/2022 9:44 AM MUSIC VIDEO PRODUCER ALBUMIN CREATININE RATIO, URINE Routine 09/26/2022 9:44 AM MUSIC VIDEO PRODUCER HM DIABETES FOOT EXAM Routine 06/07/2017 LIPID PANEL After X-Ray 02/28/2017 11:33 PM CDT PSA SCREENING Routine 01/03/2017 from Last 3 Months or Most Recently Relevant to Health Maintenance Results * Albumin Creatinine Ratio, Urine (09/26/2022 9:44 AM MUSIC VIDEO PRODUCER) Creatinine ur 54.8 Not Estab. mg/dL [facility] - 01 Microalbumin, ur 7.0 Not Estab. ug/mL [facility] - 01 Microalbumin/cre at ratio 13 0 - 29 mg/g creat [facility] - 01 Comment: Normal: 0 - 29 Moderately increased: 30 - 300 Severely increased: >300 09/26/2022 9:44 AM MUSIC VIDEO PRODUCER 09/26/2022 Narrative [facility] - 09/27/2022 8:14 AM MUSIC VIDEO PRODUCER Performed at: [facility] [id number] Cogeneration Operator: Imer Morgan PhD, Phone: [phone] Wilner Braxton MD LAB URINE ORDERABLES Fin al Result [facility] - 01 * (ABNORMAL) Hemoglobin A1c (09/26/2022 9:44 AM MUSIC VIDEO PRODUCER) Hgb A1C 6.8(H) 4.8 - 5.6 % [facility] - 01 Comment: Prediabetes: 5.7 - 6.4 Diabetes: >6.4 Glycemic control for adults with diabetes: <7.0 09/26/2022 9:44 AM MUSIC VIDEO PRODUCER 09/26/2022 Narrative [facility] - 09/27/2022 7:09 AM MUSIC VIDEO PRODUCER Performed at: [facility] [id number] Cogeneration Operator: Imer Morgan PhD, Phone: [phone] Wilner Braxton MD LAB BLOOD ORDERABLES Fin al Result [facility] - 01 * (ABNORMAL) Basic metabolic panel (09/26/2022 9:44 AM MUSIC VIDEO PRODUCER) Pathologist [facility] Glucose 145(H) 70 [...] mg/dL [facility] - 01 09/26/2022 9:44 AM MUSIC VIDEO PRODUCER 09/26/2022 Narrative [facility] - 09/27/2022 7:09 AM MUSIC VIDEO PRODUCER Performed at: [address] [facility] [id number] Cogeneration Operator: Imer Morgan PhD, Phone: [phone] Wilner Braxton MD LAB BLOOD ORDERABLES Fin al Result Performing Organization Address City/[facility]/ZIP Co de Phone Number [facility] - 01 * DIABETES FOOT EXAM (06/07/2017) Pathologist [facility] Diabetic Foot Exam Normal Historical Provider HEALTH MAINTENANCE Final Result * Lipid panel (02/28/2017 11:33 PM CDT) Pathologist [facility] Cholesterol 89 30 - 200 mg/dL [facility] Comment: Interpretive Data Desirable: <200 mg/dL Borderline high: 200-239 mg/dL High: > or = 240 mg/dL Literature Reference: National Cholesterol Education Program (NCEP) Expert Panel on Detection, Evaluation, and Treatment of High Blood Cholesterol in Adults (Adult Treatment Panel III). Circulation 2004; 110:227. Current interpretive data was last revised on 2015. Triglycerides 49 0 - 150 mg/dL [facility] Comment: Interpretive Data Desirable: < 150 mg/dL Borderline High: 150 - 199 mg/dL High: 200 - 499 mg/dL Very High: > or = 499 mg/dL Literature Reference: See Cholesterol Current interpretive data was last revised on 2015. HDL 40 >=40 mg/dL [facility] Comment: Interpretive Data Less than 40 mg/dL - low; A major risk factor for heart disease. Greater than or equal to 60 mg/dL - High; considered protective of heart disease. Literature Reference: See Cholesterol Current interpretive data was last revised on 2015. LDL, calculated 39 10 - 129 mg/dL [facility] Comment: Interpretive Data Optimal: < 100 mg/dL Near Optimal: 100 - 129 mg/dL Borderline High: 130 - 159 mg/dL High: 160 - 189 mg/dL Very high: > or = 190 mg/dL Literature Reference: See Cholesterol Current interpretive data was last revised on 2015. Non-HDL Cholesterol 49 mg/dL [facility] Comment: Interpretive Data When triglycerides are >200 mg/dL, non-HDL C is a secondary target of therapy, with a goal 30 mg/dL higher than the identified LDL-C goal. Reference: See Cholesterol Reference. Current interpretive data was last revised 2015. Blood specimen (specimen) 02/28/2017 11:33 PM CDT 03/01/2017 12:43 AM CDT us Sterling Hernandez MD LAB BLOOD ORDERABLES Ashlyn reed Result [facility] Department [place] [address] * PSA SCREENING (01/03/2017) [facility] PSA Normal Historical Provider HEALTH MAINTENANCE Final Result from Last 3 Months or Most Recently Relevant to Health Maintenance Insurance [facility] UHC MEDICARE ADVANTAGE [facility] MDCR HMO REF UHC MEDICARE ADVANTAGE Care Teams Inspector Rag Sorting Relationship Specialty Start Date End Date Tr Zaman MD [facility] [place] [address] PCP - General Family Practice 08/24/24 Wilner Braxton MD [address] [place] [address] PALLAVI DUARTE [id number] 01/23/17
--- OUTSIDE RECORDS SUMMARY | 2025-07-08 14:53 | XMS_ITS | Encounter Summary ---
Author Organization [facility] Healthcare Address [address] [place] [address] Care Team Providers Care Station Mechanic Apprentice Name Role Phone Wilner Hare MD Primary Care Provider + Wilner Hare MD Unavailable [phone] Tr Zaman MD Primary Care Provider [phone] Encounter Details Date Type Department Care Team (Late st Contact Info) Description 09/13/2023 Orders Only [facility] Health Information Management [address] [place] [id number] Scanning, Provider Social History Tobacco Use Types Packs/Day Years Used Date Smoking Tobacco: Former Smokeless Tobacco: Never Alcohol Use Standard Drinks/Week Comments Yes 0 (1 standard drink = 0.6 oz pur e alcohol) Sex and Gender Information Value Date Recorded Sex Assigned at Not on file Legal Sex Male 12:07 AM CARDING UTILITY TENDER Gender Identity Male 10/04/2020 1:22 PM CARDING UTILITY TENDER Sexual Orientation Something else 10/04/2020 1: 22 PM CARDING UTILITY TENDER documented as of this encounter Plan of Treatment Not on file documented as of this encounter Procedures Procedure Name Priority Date/Time Associated Diagnosis Comments SCAN - LABS 09/13/2023 documented in this encounter Results * SCAN - LABS (09/13/2023) us Provider Scanning Edited Result - Final documented in this encounter Visit Diagnoses Not on filedocumented in this encounter Additional Health Concerns Infection Onset Date Last Indicated Resolved Time COVID: Suspected 08/24/2024 08/24/2024 08/24/2024 4:50 PM CARDING UTILITY TENDER documented as of this encounter Care Teams Station Mechanic Apprentice Relationship Specialty [place] [address] [place] [address] PALLAVI DUARTE [id number] PCP - General 01/29/17 08/23/24 Tr Zaman MD [address] [place] [address] [place] DUARTE [id number] PCP - General Family Practice 08/24/24 Wilner Hare MD [address] [place] [address] P[place]AVI DUARTE [id number] 01/23/17 documented as of this encounter
--- OUTSIDE RECORDS SUMMARY | 2025-07-08 14:53 | XMS_ITS | Encounter Summary ---
Author Organization [facility] Address [address] [place] [address] Phone Care Team Providers Care Safety Council Director Name Role Phone Wilner Hare MD Primary Care Provider + Wilner Hare MD Unavailable [phone] Tr Zaman MD Primary Care Provider [phone] Encounter Details Date Type Department Care Team [...] on file Legal Sex Male 12:07 AM SUPPLY CRIB ATTENDANT Gender Identity Male 10/04/2020 1:22 PM SUPPLY CRIB ATTENDANT Sexual Orientation Something else 10/04/2020 1: 22 PM SUPPLY CRIB ATTENDANT documented as of this encounter Plan of [...] COVID: Suspected 08/24/2024 08/24/2024 08/24/2024 4:50 PM SUPPLY CRIB ATTENDANT documented as of this encounter Care Teams Safety Council Director Relationship Specialty Start Date End Date Wilner Hare MD [address] [place] [address] [place] [id number] PCP - General 01/29/17 08/23/24 Tr Zaman MD [address] [place] [address] [place] [id number] PCP - General Family Practice 08/24/24 Wilner Hare MD [address] [place] [address] [place] [id number] 01/23/17 documented as of this encounter
--- OUTSIDE RECORDS SUMMARY | 2025-07-08 14:53 | XMS_ITS | Encounter Summary ---
Author Organization [facility] Healthcare Address [address] [place] [address] Care Team Providers Care Information Resources Director Name Role Phone Wilner Hare MD Unavailable [phone] Tr Zaman MD Primary Care Provider [phone] Encounter Details Date Type Department Care Team (Late st Contact Info) Description 02/20/2025 Orders Only [facility] [place] Health Information Management [address] [place] [address] [id number] Willard Ricci MD [address] [facility] [address] [place] [address] [facility] [place] [address] [place] [address] Social History Tobacco Use Types Packs/Day Years Used Date Smoking Tobacco: Former Smokeless Tobacco: Never Alcohol Use Standard Drinks/Week Comments Yes 0 (1 standard drink = 0.6 oz pur e alcohol) Sex and Gender Information Value Date Recorded Sex Assigned at Not on file Legal Sex Male 12:07 AM SPECIALTY TRIMMER Gender Identity Male 10/04/2020 1:22 PM SPECIALTY TRIMMER Sexual Orientation Something else 10/04/2020 1: 22 PM SPECIALTY TRIMMER documented as of this encounter Plan of Treatment Not on file documented as of this encounter Procedures Procedure Name Priority Date/Time Associated Diagnosis Comments SCAN - RADIOLOGY/IMAGING 02/20/2025 documented in this encounter Results * SCAN - RADIOLOGY/IMAGING (02/20/2025) Anatomical Region Laterality Modality Other us Willard Ricci MD Final Res ult documented in this encounter Visit Diagnoses Not on filedocumented in this encounter Care Teams Information Resources Director Relationship Specialty Start Date End Date Tr Zaman MD [address] [facility] [id number] PCP - General Family Practice 08/24/24 Wilner Hare MD [facility] [place] [address] 01/23/17 documented as of this encounter
--- OUTSIDE RECORDS SUMMARY | 2025-07-08 14:53 | XMS_ITS | Encounter Summary ---
Author Organization [facility] Address [address] [place] [address] Phone Care Team Providers Care Physical Meteorologist Name Role Phone Wilner Hare MD Primary Care Provider + Wilner Hare MD Unavailable [phone] Tr Zaman MD Primary Care Provider [phone] Encounter Details Date Type Department Care Team [...] on file Legal Sex Male 12:07 AM FUR OPERATOR Gender Identity Male 10/04/2020 1:22 PM FUR OPERATOR Sexual Orientation Something else 10/04/2020 1: 22 PM FUR OPERATOR documented as of this encounter Plan [...] COVID: Suspected 08/24/2024 08/24/2024 08/24/2024 4:50 PM FUR OPERATOR documented as of this encounter Care Teams Physical Meteorologist Relationship Specialty Start Date End Date Wilner Hare MD [address] [place] [address] [place] [id number] PCP - General 01/29/17 08/23/24 Tr Zaman MD [address] [place] [address] [place] [address] PCP - General Family Practice 08/24/24 Wilner Hare MD [address] [place] [address] [place] [address] 01/23/17 documented as of this encounter
--- OUTSIDE RECORDS SUMMARY | 2025-07-08 14:53 | XMS_ITS ---
Laboratory report Created on: July 07, 2025 KAVYA BOWIE : 1935 Sex: Male Author Name MARGRET GLASS Organization Unknown PROBLEMS Problems List Code Description R42 R53.83 RESULTS Laboratory Orders Date Order Code Test 2025-07-01 [id number] URINE CULTURE, R OUTINE Laboratory Results Date LOINC Test Value Unit Reference Range Interpre tation 2025-07-01 630-4 URINE CULTURE, ROUTINE FINAL 2025-07-01 630-4 RESULT 1 MUG
--- OUTSIDE RECORDS SUMMARY | 2025-07-08 14:53 | XMS_ITS | Encounter Summary ---
Author Organization [facility] Address [address] [place] [address] Phone Care Team Providers Care Judge'S Clerk Name Role Phone Wilner Hare MD Primary Care Provider + Wilner Hare MD Unavailable [phone] Tr Zaman MD Primary Care Provider [phone] Encounter Details Date Type Department Care Team [...] on file Legal Sex Male 12:07 AM QUALITY CONSULTANT Gender Identity Male 10/04/2020 1:22 PM QUALITY CONSULTANT Sexual Orientation Something else 10/04/2020 1: 22 PM QUALITY CONSULTANT documented as of this encounter Plan of [...] COVID: Suspected 08/24/2024 08/24/2024 08/24/2024 4:50 PM QUALITY CONSULTANT documented as of this encounter Care Teams Judge'S Clerk Relationship Specialty Start Date End Date Wilner Hare MD [address] [place] [address] [place] [id number] PCP - General 01/29/17 08/23/24 Tr Zaman MD [address] [place] [address] [place] [address] PCP - General Family Practice 08/24/24 Wilner Hare MD [address] [place] [address] [place] [address] 01/23/17 documented as of this encounter
== END 2025-07-08 14:49 | disposition home or self-care (01) ==
LOC: CHSIMG 14:49
PROVIDERS: PCP Nurse Practitioner Family; Visit Provider Nurse Practitioner Family
DX: R53.83 Other fatigue (principal); R42 Dizziness and giddiness; J32.9 Chronic sinusitis, unspecified
CPT/HCPCS: 70450; 70486